=== PATIENT | male | born 1960 | race Caucasian/White ===

== ENCOUNTER 2024-10-13 16:18 | Outpatient (AMB) | payer BC, SELFPAY ==
--- NOTE | 2024-10-13 16:19 | A.OFFVIS_ITS ---
Intake Visit Reasons: New Patient/Prostate Lesion Intake Note: Akbar presents today via video call for a new patient visit. HPI Comments Details: Akbar is a pleasant male. He is a patient of Dr. Maldonado. He is seen for the following urologic conditions. - elevated PSA Telemedicine Evaluation 15 min Consultation [employer] Danny Video Ongoing variability with PSA. PSA 08/18 8.0, 10/16 10.1 Currently completing 2 week course of ciprofloxacin Discussed recent MRI results. Correlation between PI-RADS 4 lesions on MRI and biopsy result proximally 85%. Discussed MRI can not tell you grade of disease and most frequently this would be low-grade disease. Variable MRI may reflect underlying neoplastic process. However recent 2 point variation is more suggestive of prostatitis. Would recommend MRI ultrasound fusion biopsy. Recent prostate MRI Prostate volume 50 cc 2 PI-RADS 4 lesions. Left base lateral. 10 mm. Abutment of capsule. Posterior right base. 10 mm. Bladder findings with diffuse wall thickening and trabeculation consequence of chronic outlet obstruction. Secondary issue of concern is diffuse bladder wall thickening with trabeculation. Recommend initiation finasteride to help manage outlet obstruct ion and address PSA whilst mitigating potential prostate cancer risk. Review of Systems Const All systems reviewed & are unremarkable except as noted in HPI and below Reports no additional complaints Resp Reports no additional complaints GI Reports no additional complaints Reports as per HPI Musc Reports no additional complaints Physical Exam Telemedicine evaluation Appropriate responses Regular breathing rate and rhythm HEENT Head: Yes normal to inspection Ears: hearing grossly normal bilaterally Eyes General: appearance normal, both eyes and all related structures Neck Neck: Yes normal visual inspection Chest Chest palpation & inspection: normal inspection of the chest Resp Effort & Inspection: normal respiratory effort and able to speak in complete sentences Telehealth Telehealth Telehealth Platform: [employer] Location of provider rendering services: practice address Location of patient: address on file Patient Identification confirmed using: Name, : Yes Telehealth method: video Patient verbally consented to treatment: Yes Patient verbally consented to billing insurance company: Yes Patient informed of any privacy concerns related to visit: Yes Minutes spent on Phone/Video with Pt.: 25 Assessment & Plan Assessment & Plan (1) Bladder outlet obstruction: Code(s): N32.0 - Bladder-neck obstruction Category: Medical (2) Elevated PSA: Code(s): R97.20 - Elevated prostate specific antigen [PSA] Category: Medical Plan Risks and benefits regarding trans rectal ultrasound with prostate biopsy were discussed. Options of continued surveillance, no treatment and biopsy were offered. The risks include but are not limited to, urinary tract infection, sepsis, difficulty urinating, bleeding into the rectum or bladder that requires intervention and transfusion,and failure to diagnose prostate cancer. The patient understands the options and the risks involved. They wish to proceed. Printed information was provided to ensure he remains off anticoagulation for the appropriate length of time. He may require cardiology or PCP clearance. An antibiotic will be administered prior to, and following the procedure - MRI ultrasound fusion prostate biopsy under sedation Medications: New finasteride 5 mg PO DAILY 90 tabs 1RF 90 days N13.8 - Other obstructive and reflux uropathy, N40.1 - Benign prostatic hyperplasia with lower urinary tract symptoms, R33.9 - Retention of urine, unspecified Patient Instructions: This note is constructed using voice recognition software. While every effort has been made to ensure accuracy desktop support consultant errors may have been included. Imaging studies, laboratory and physical exam results were discussed and reviewed in detail. No major barriers to patient understanding were identified. An opportunity to ask questions regarding the treatment plan was provided. All questions were answered. The patient expressed understanding and agreement with the above treatment plan. The patient is aware they should contact our office by phone for worsening of their current condition or the appearance of new urologic symptoms. Compliance is encouraged with any medications and followup testing that is ordered. It is a privilege to participate in the urologic care of your patient. If you have any questions or concerns regarding treatment for the above conditions, or other urologic issues, please do not hesitate to contact me. The office telephone contact is [phone]. Sincerely, Dr Aurelio Friend MD, [facility] - Urology Compassionate Specialist Care for the Genitourinary System Coding Level of Care Code Tele New Pt Level 4 (22994) Diagnoses Bladder outlet obstruction N32.0 Elevated PSA R97.20
--- OUTSIDE RECORDS SUMMARY | 2024-10-13 18:46 | XMS_ITS | Encounter Summary ---
Author Organization [facility] Address [address] [place] [address] Care Team Providers Care Insurance Account Representative Name Role Phone Marco Antonio Maldonado MD Primary Care Provider Encounter Details Date Type Department Care Team (Late st Contact Info) Description 02/16/2022 Orders Only [facility] XRay [address] [place] [address] Andrew Jonas MD [address] [place] [address] Social History Tobacco Use Types Packs/Day Years Used Date Smoking Tobacco: Every Day Cigarettes Cigars Smokeless Tobacco: Never Comments:: Alcohol Use Standard Drinks/Week Comments Yes 0 (1 standard drink = 0.6 oz pur e alcohol) very rare Sex and Gender Information Value Date Recorded Sex Assigned at Male 09/04/2021 9:34 AM EDT Legal Sex Male 3:41 AM EDT Gender Identity Male 09/04/2021 9:34 AM EDT Sexual Orientation Straight 09/04/2021 9: 34 AM EDT documented as of this encounter Plan of Treatment Upcoming Encounters Date Type Department Care Team (Late st Contact Info) Description 11/27/2024 10:00 AM EDT Office Visit [facility] [address] [place] [phone] Sport Intern: Anju Lopes, Aracely Eduardo NP [address] [place] [phone] documented as of this encounter Visit Diagnoses Not on filedocumented in this encounter Care Teams Insurance Account Representative Relationship Specialty Start Date End Date Marco Antonio Maldonado MD [address] [place] [phone] PCP - General Internal Medicine 08/21/21 documented as of this encounter
--- OUTSIDE RECORDS SUMMARY | 2024-10-13 18:46 | XMS_ITS | Encounter Summary ---
Author Organization [facility] Address [address] [place] [address] Care Team Providers Care Type Bar And Segment Assembler Name Role Phone Marco Antonio Maldonado MD Primary Care Provider [phone] Encounter Details Date Type Department Care Team (Late st Contact Info) Description 02/15/2022 Orders Only [facility] Draw Site [address] [place] [phone] Marco Antonio Maldonado MD [address] [place] [address] [phone] Umbilical hernia with obstruction but no gangrene (Primary Dx) Social History Tobacco Use Types Packs/Day Years [...] Description 11/27/2024 10:00 AM EDT Office Visit [facility] Clinic [address] [place] [address] Stevedoring Supervisor: Anju Aracely Don, TESSIE [address] [place] [address] documented as of this encounter Results * Due to [place] state law, this organization might not be sharing negative HIV tests. * Urinalysis With Microscopic (No Culture) (02/16/2022 9:29 AM EDT) Color, Urine Light Yellow Colorless, Light Yellow, Yellow, Dark Yellow 02/16/2022 10:11 AM EDT [facility] Clarity, Urine Clear Clear 02/16/2022 10:11 AM EDT [facility] Specific [place], Urine 1.009 1.005 - 1.030 02/16/2022 10:11 AM EDT [facility] pH, Urine 6.0 4.6 - 8.0 02/16/2022 10:11 AM EDT [email or web address] Protein, Urine Negative Negative 02/16/2022 10:11 AM EDT [facility] Glucose, Urine Negative Negative 02/16/2022 10:11 AM EDT [facility] Ketones, Urine Negative Negative 02/16/2022 10:11 AM EDT [facility] Bilirubin, Urine Negative Negative 02/16/2022 10:11 AM EDT [facility] Blood, Urine Negative Negative 02/16/2022 10:11 AM EDT [facility] Nitrite, Urine Negative Negative 02/16/2022 10:11 AM EDT [email or web address] Urobilinogen, Urine Normal Normal 02/16/2022 10:11 AM EDT [facility] Leukocyte Esterase, Urine Negative Negative 02/16/2022 10:11 AM EDT [email or web address] WBC, Urine 2 0 - 2 /HPF 02/16/2022 10:11 AM EDT [facility] RBC, Urine 0 0 - 2 /HPF 02/16/2022 10:11 AM EDT [facility] Hyaline Casts, Urine 0 0 - 2 /LPF 02/16/2022 10:11 AM EDT [facility] Bacteria, Urine None Seen None /HPF /HPF 02/16/2022 10:11 AM EDT [facility] Urine Voided urine specimen / Unknown Non-Blood Collection / Unknown 02/16/2022 9:29 AM EDT 02/16/2022 9:45 AM EDT us Marco Antonio Maldonado MD LAB URINE ORDERABLES Final [facility] [address] [place] [address], * (ABNORMAL) Basic Metabolic Panel (02/16/2022 9:22 AM EDT) NA 141 135 - 145 mmol/L 02/16/2022 10:14 AM EDT [facility] K 4.5 3.5 - 5.3 mmol/L 02/16/2022 10:14 AM EDT [facility] Cl 105 97 - 110 mmol/L 02/16/2022 10:14 AM EDT [facility] CO2 27 24 - 32 mmol/L 02/16/2022 10:14 AM EDT [facility] BUN 14 7 - 23 mg/dL 02/16/2022 10:14 AM EDT [facility] Creatinine 0.80 0.60 - 1.30 mg/dL 02/16/2022 10:14 AM EDT [facility] Glucose 108(H) 70 - 99 mg/dL 02/16/2022 10:14 AM EDT [facility] Calcium 9.9 8.7 - 10.7 mg/dL 02/16/2022 10:14 AM EDT [facility] Anion Gap 9 5 - 15 02/16/2022 10:14 AM EDT [facility] eGFR >90 >=90 mL/min/1. 73m2 02/16/2022 10:14 AM EDT [facility] Comment: Estimated Glomerular Filtration Rate (GFR) calculated using the CKD-EPI refit equation. The different stages of CKD form a continuum. The stages of CKD are classified as follows : Stage 1: Kidney damage with normal or increased GFR (>90 mL/min/1.73 m2) Stage 2: Mild reduction in GFR (60-89 mL/min/1.73 m2) Stage 3a: Moderate reduction in GFR (45-59 mL/min/1.73 m2) Stage 3b: Moderate reduction in GFR (30-44 mL/min/1.73 m2) Stage 4: Severe reduction in GFR (15-29 mL/min/1.73 m2) Stage 5: Kidney failure (GFR < 15 mL/min/1.73 m2 or dialysis) Blood Structure of peripheral vein / Unknown Venipuncture / Unknown 02/16/2022 9:22 AM EDT 02/16/2022 9:47 AM EDT us Marco Antonio Maldonado MD LAB BLOOD ORDERABLES Final Resu lt [facility] [address] [place] [address], * CBC Auto Differential (02/16/2022 9:22 AM EDT) WBC 7.9 4.3 - 10.8 10*3/uL 02/16/2022 9:54 AM EDT [facility] RBC 4.92 4.20 - 5.80 10*6/uL 02/16/2022 9:54 AM EDT [facility] Hemoglobin 14.9 13.2 - 17.1 g/dL 02/16/2022 9:54 AM EDT [facility] Hematocrit 43.0 39.0 - 52.0 % 02/16/2022 9:54 AM EDT [facility] MCV 87.4 80.0 - 100.0 fL 02/16/2022 9:54 AM EDT [facility] MCH 30.2 27.0 - 34.0 pg 02/16/2022 9:54 AM EDT [facility] MCHC 34.6 29.0 - 36.0 g/dL 02/16/2022 9:54 AM EDT [facility] RDW 13.1 11.0 - 15.0 % 02/16/2022 9:54 AM EDT [facility] Platelets 230 140 - 440 10*3/uL 02/16/2022 9:54 AM EDT [facility] MPV 7.6 7.6 - 11.6 fL 02/16/2022 9:54 AM EDT [facility] Neutrophil % 62.7 % 02/16/2022 9:54 AM EDT [facility] Lymphocyte % 27.5 % 02/16/2022 9:54 AM EDT [facility] Monocyte % 6.1 % 02/16/2022 9:54 AM EDT [facility] Eosinophil % 2.2 % 02/16/2022 9:54 AM EDT [facility] Basophil % 1.4 % 02/16/2022 9:54 AM EDT [facility] Neutrophil # 4.94 1.60 - 7.50 10*3/uL 02/16/2022 9:54 AM EDT [facility] Lymphocyte # 2.2 0.9 - 3.4 10*3/uL 02/16/2022 9:54 AM EDT [facility] Monocyte # 0.5 0.0 - 1.2 10*3/uL 02/16/2022 9:54 AM EDT [facility] Eosinophil # 0.2 0.0 - 0.6 10*3/uL 02/16/2022 9:54 AM EDT [facility] Basophil # 0.1 0.0 - 0.3 10*3/uL 02/16/2022 9:54 AM EDT [facility] Smear Review? No [place] [facility] 02/16/2022 9:54 AM EDT [facility] Blood Structure of peripheral vein / Unknown Venipuncture / Unknown 02/16/2022 9:22 AM EDT 02/16/2022 9:47 AM EDT us Marco Antonio Maldonado MD LAB BLOOD ORDERABLES Final Resu lt [facility] [address] documented in this encounter Visit Diagnoses Diagnosis Umbilical hernia with obstruction but no gangrene- Primary Umbilical hernia with obstruction documented in this encounter Care Teams Type Bar And Segment Assembler Relationship Specialty Start Date End Date Marco Antonio Maldonado MD [address] [place] [phone] PCP - General Internal Medicine 08/21/21 documented as of this encounter
--- OUTSIDE RECORDS SUMMARY | 2024-10-13 18:46 | XMS_ITS | Encounter Summary ---
Author Organization [facility] Address [address] [place] [address] Care Team Providers Care Corn Breeder Name Role Phone Marco Antonio Maldonado MD Primary Care Provider [phone] Encounter Details Date Type Department Care Team (Late st Contact Info) Description 10/01/2024 Community Orders [facility] Link [address] [place] [address] Marco Antonio Maldonado MD [address] [place] [address] [phone] Social History Tobacco Use Types Packs/Day Years Used Date Smoking Tobacco: Every Day Cigarettes 0.5 20 Cigars Smokeless Tobacco: Never Comments:: Alcohol Use [...] Description 11/27/2024 10:00 AM EDT Office Visit [facility] Clinic [address] [place] [phone] Registration Clerk: Anju Lopes, Aracely Eduardo NP [address] [place] [phone] documented as of this encounter Visit Diagnoses Not on filedocumented in this encounter Care Teams Corn Breeder Relationship Specialty Start Date End Date Marco Antonio Maldonado MD [address] [place] [phone] PCP - General Internal Medicine 08/21/21 documented as of this encounter
--- OUTSIDE RECORDS SUMMARY | 2024-10-13 18:46 | XMS_ITS | Encounter Summary ---
Author Organization [facility] Address [address] [place] [address] Care Team Providers Care Curriculum Assistant Principal Name Role Phone Marco Antonio Maldonado MD Primary Care Provider [phone] Encounter Details Date Type Department Care Team (Late st Contact Info) Description 02/16/2022 Orders Only [facility] XRay [address] [place] [address] Mikhail Dorantes MD [address] [place] [address] Social History Tobacco Use Types Packs/Day Years [...] Description 11/27/2024 10:00 AM EDT Office Visit [facility] [address] [place] [phone] Manufacturing Electrician: Anju Lopes, Aracely Eduardo NP [address] [place] [address] documented as of this encounter Visit Diagnoses Not on filedocumented in this encounter Care Teams Curriculum Assistant Principal Relationship Specialty Start Date End Date Marco Antonio Maldonado MD [address] [place] [phone] PCP - General Internal Medicine 08/21/21 documented as of this encounter
--- OUTSIDE RECORDS SUMMARY | 2024-10-13 18:46 | XMS_ITS | Encounter Summary ---
Author Organization [facility] Address [address] [place] [address] Care Team Providers Care Corporate Learning Consultant Name Role Phone Marco Antonio Maldonado MD Primary Care Provider [phone] Encounter Details Date Type Department Care Team (Late st Contact Info) Description 08/28/2023 Orders Only [facility] [address] [place] [phone] Taran Andino MD [address] [place] [address] [phone] Social History Tobacco Use Types Packs/Day Years [...] Description 11/27/2024 10:00 AM EDT Office Visit [facility] Clinic [address] [place] [phone] Implement Mechanic: Anju Lopes, Aracely Eduardo NP [address] [place] [phone] documented as of this encounter Visit Diagnoses Not on filedocumented in this encounter Care Teams Corporate Learning Consultant Relationship Specialty Start Date End Date Marco Antonio Maldonado MD [address] [place] [phone] PCP - General Internal Medicine 08/21/21 documented as of this encounter
--- OUTSIDE RECORDS SUMMARY | 2024-10-13 18:46 | XMS_ITS | Encounter Summary ---
Author Organization [facility] Address [address] [place] [address] Care Team Providers Care Roll Repairer Name Role Phone Marco Antonio Maldonado MD Primary Care Provider [phone] Encounter Details Date Type Department Care Team (Late st Contact Info) Description 10/09/2024 Community Orders [facility] Link [address] [place] [address] Marco Antonio Maldonado MD [address] [place] [address] [phone] Social History Tobacco Use Types Packs/Day Years [...] Description 11/27/2024 10:00 AM EDT Office Visit [facility] Clinic [address] [place] [phone] Computer Numerical Control Programmer: Anju Lopes, Aracely Eduardo NP [address] [place] [address] documented as of this encounter Visit Diagnoses Not on filedocumented in this encounter Care Teams Roll Repairer Relationship Specialty Start Date End Date Marco Antonio Maldonado MD [address] [place] [phone] PCP - General Internal Medicine 08/21/21 documented as of this encounter
--- OUTSIDE RECORDS SUMMARY | 2024-10-13 18:46 | XMS_ITS | Encounter Summary ---
Author Organization [facility] Address [address] [place] [address] Care Team Providers Care Hide Handler Name Role Phone Marco Antonio Maldonado MD Primary Care Provider [phone] Encounter Details Date Type Department Care Team (Late st Contact Info) Description 10/12/2024 Community Orders [facility] Link [address] [place] [address] Marco Antonio Maldonado MD [address] [place] [address] [phone] Social History Tobacco Use Types Packs/Day Years [...] Description 11/27/2024 10:00 AM EDT Office Visit [facility] Clinic [address] [place] [phone] Registration Manager: Anju Lopes, Aracely Eduardo NP [address] [place] [address] documented as of this encounter Visit Diagnoses Not on filedocumented in this encounter Care Teams Hide Handler Relationship Specialty Start Date End Date Marco Antonio Maldonado MD [address] [place] [phone] PCP - General Internal Medicine 08/21/21 documented as of this encounter
--- OUTSIDE RECORDS SUMMARY | 2024-10-13 18:46 | XMS_ITS | Referral Summary ---
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 Role Phone Marco Antonio Maldonado MD Primary Care Provider Encounters Date Type Department Care Team Description 10/12/2024 Community Orders [facility] [employer] [facility] [address] [place] [phone] Marco Antonio Maldonado MD 10/09/2024 Community Orders [facility] [employer] [facility] [address] [place] [address] Marco Antonio Maldonado MD 10/06/2024 1:10 PM EDT - 10/06/2024 11:59 PM EDT Hospital Encounter [facility] [address] [place] [address] Left testicular pain Discharge Disposition: Home or Self Care (01) 10/05/2024 Orders Only [facility] [address] [address] Marco Antonio Maldonado MD Elevated prostate specific antigen (PSA) 10/01/2024 Community Orders [facility] [facility] [address] [place] [address] Marco Antonio Maldonado MD 09/30/2024 Orders Only [facility] [address] [place] [phone] Local City Driver: Aracely Gonzalez NP 09/28/2024 Telephone [facility] [address] [address] Local City Driver: Aracely Gonzalez NP 09/28/2024 8:00 AM EDT Office Visit [facility] [address] [place] [phone] Local City Driver: Aracely Gonzalez NP Abnormal prostate specific antigen (PSA) (Primary Dx); Left testicular pain 09/15/2024 Orders Only [facility] Draw Site [address] [place] [address] Marco Antonio Maldonado MD Elevated prostate specific antigen (PSA) (Primary Dx) 09/15/2024 Orders Only [facility] [address] [address] Local City Driver: Rohit Sinclair MD 09/11/2024 Telephone [facility] [address] [address] Local City Driver: Murtaza López LPN 09/01/2024 Transcribe Orders [facility] [address] [place] [address] Marco Antonio Maldonado MD Elevated prostate specific antigen (PSA) (Primary Dx) 07/23/2024 3:27 PM EST - 07/23/2024 11:59 PM EST Hospital Encounter [facility] CT Scan [address] [place] [address] Marco Antonio Maldonado MD Acute maxillary sinusitis, recurrence not specified Discharge Disposition: Home or Self Care () from Last 3 Months Allergies Active Allergy Reactions Criticality Noted Date Comments Meperidine Paresthesia Medium 10/14/2020 Iodine Rash,Unknown,Edema High 01/14/2019 topical Shellfish Derived Lethargy Low 10/14/2020 Sulfa (Sulfonamide Antibiotics) Unknown,Dizziness Medium 06/02/2019 Blood pressure drop and will become faint and dizzy Medications eszopiclone (LUNESTA) 3 mg tablet Take 1 tablet (3 mg total) by mouth nightly. Take immediately before bedtime 30 tablet 3 9 Active cyanocobalamin, vitamin B-12, 1,000 mcg tablet extended release 1 tablet daily Activ e Lactobac no.41/Bifidobac t no.7 (PROBIOTIC-10 ORAL) Take by mouth. Activ e albuterol (PROAIR HFA,VENTOLIN HFA) 90 mcg inhaler SMARTSI Puff(s) Via Inhaler Every 4 Hours PRN Active ZINC ACETATE ORAL Take by mouth once a day. Active LYCOPENE ORAL Take by mouth once a day. Active vitamin B complex capsule Take 1 capsule by mouth once a day. Active psyllium seed, with sugar, (METAMUCIL, SUGAR, ORAL) Take by mouth. Ac tive rosuvastatin (CRESTOR) 20 mg tablet Take 1 tablet every day by oral route for 90 days, for hyperlipidemia. 5 Active cefpodoxime (VANTIN) 200 mg tablet Take 1 tablet by mouth 2 times daily, day before biopsy, day of biopsy, day after biopsy 6 tablet 5 Active cefpodoxime (VANTIN) 200 mg tablet Take 1 tablet (200 mg total) by mouth 2 times a day. 14 tablet 5 Active Active Problems Problem Noted Date Diagnosed Date Cardiovascular symptoms 03/15/2022 Chronic obstructive pulmonary disease 03/15/2022 Obstructive sleep apnea 03/15/2022 Pulmonary infiltrate 03/15/2022 Pulmonary nodule 03/15/2022 Hemorrhoids 11/13/2018 Assessment & Plan (11/13/2018 4:22 PM EDT): Doing well with Anusol cream Pneumonia due to infectious organism 09/05/2018 Assessment & Plan (11/13/2018 4:21 PM EDT): Clinically patient has improved however the last chest x-ray showed some continuation of the interstitial infiltrate and some COPD. He was advised to quit smoking and will be referred to pulmonology specialist for COPD and persistence of pneumonic infiltrate Assessment & Plan (09/05/2018 12:18 PM EDT): Clinically seems to have resolved. Patient will go and have a repeat chest x- ray. Shortness of breath 07/31/2018 Assessment & Plan (07/31/2018 11:33 AM EST): Most likely due to acute bronchitis. Patient was prescribed doxycycline 100 mg twice a day prednisone 50 mg/day for 7 days and also will go for a chest x-ray. EKG normal. Also patient was given samples of Symbicort 80 1 puff twice a day Annual physical exam 05/08/2018 Assessment & Plan (05/08/2018 2:49 PM EST): Current exam performed. Patient will use Anusol suppositories for rectal bleeding and will go and have Acute pain of left shoulder 03/20/2018 Assessment & Plan (03/20/2018 4:06 PM EDT): Probably tendinitis or rotator cuff injury. His bicipital groove was injected with a mixture of lidocaine and Medrol and in view of his previous history of rotator cuff surgery he will have an MRI. SOB (shortness of breath) 12/20/2017 Assessment & Plan (12/20/2017 11:06 AM EDT): Probably multifactorial. Patient will be referred for PFT and a chest x-ray. Subcutaneous cyst 12/20/2017 Assessment & Plan (12/20/2017 11:07 AM EDT): Consistent with a benign cyst. Patient will be referred to surgery for removal. Infected pilonidal cyst 03/14/2017 Inflamed seborrheic keratosis 07/12/2016 Skin mass 06/26/2016 Acute sinusitis 03/26/2016 Upper airway cough syndrome 03/26/2016 Cervicalgia 08/04/2014 Insomnia 08/04/2014 Assessment & Plan (11/13/2018 4:21 PM EDT): Seems to be doing well with Lunesta Bursitis of shoulder 01/19/2014 Hyperlipidemia 01/19/2014 Assessment & Plan (11/13/2018 4:21 PM EDT): Doing well with simvastatin 20 mg Assessment & Plan (12/20/2017 11:08 AM EDT): Doing well with simvastatin 20 mg. Immunizations Immunization Administration Dates Next Due Influenza, Trivalent, MDV, Injectable 03/14/2017 ,05/09/2015,08/04/2014 Tetanus Toxoid, Reduced Diph theria Toxoid, and Acellular Pertussis Vaccine, Adsorbed 03/14/2017 Social History Tobacco Use Types Packs/Day Years Used Date Smoking Tobacco: Every Day Cigarettes 0.5 20 Cigars Smokeless Tobacco: Never Tobacco Cessation:Ready to Q uit: Not Asked; Counseling Given: Not Answered Comments:: Alcohol Use Standard Drinks/Week Comments Yes 0 (1 standard drink = 0.6 oz pur e alcohol) very rare Sex and Gender Information Value Date Recorded Sex Assigned at Male 09/04/2021 9:34 AM EDT Legal Sex Male 3:41 AM EDT Gender Identity Male 09/04/2021 9:34 AM EDT Sexual Orientation Straight 09/04/2021 9: 34 AM EDT Last Filed Vital Signs Vital Sign Reading Time Taken Comments Blood Pressure 124/72 09/28/2024 7:53 AM EDT Pulse 91 09/28/2024 7:53 AM EDT Temperature 36.3 ??C (97.3 ??F) 11/21/2023 8:31 AM ED T Respiratory Rate 16 10/21/2023 7:50 AM EDT Oxygen Saturation 95% 10/21/2023 7:50 AM EDT Inhaled Oxygen Concentration - - Weight 89.8 kg (198 lb) 11/21/2023 8:31 AM EDT Height 167.6 cm (5' 6 ) 11/21/2023 8:31 AM EDT Body Mass Index 31.96 11/21/2023 8:31 AM EDT Plan of Treatment Upcoming Encounters Date Type Department Care Team (Late st Contact Info) Description 11/27/2024 10:00 AM EDT Office Visit [facility] [address] [place] [address] Local City Driver: Anju Lopes, Aracely Eduardo NP [address] [place] [phone] Procedures * Due to [place] state law, this organization might not be sharing negative HIV tests. Procedure Name Priority Date/Time Associated Diagnosis Comments US SCROTUM AND DOPPLER COMPLETE Routine 10/06/2024 1:46 PM EDT Left testicular pain MRI PROSTATE W WO CONTRAST W 3D REFORMAT Routine 10/05/2024 7:50 PM EDT Elevated prostate specific antigen (PSA) GUZMAN TOP, URN Routine 09/28/2024 4:55 PM EDT Abnormal prostate specific antigen (PSA) UA/CULTURE REFLEX Routine 09/28/2024 4:5 5 PM EDT Abnormal prostate specific antigen (PSA) URINALYSIS W/REFLEX TO MICROSCOPIC & CULTURE Routine 09/28/2024 4:55 PM EDT Abnormal prostate specific antigen (PSA) URINE CULTURE, ROUTINE Routine 09/28/2024 4:55 PM EDT Abnormal prostate specific antigen (PSA) PSA, TOTAL AND FREE Routine 09/23/2024 7 :39 AM EDT Elevated prostate specific antigen (PSA) LAB - SCANNED Routine 09/15/2024 8:[address] SINUS WO CONTRAST Routine 07/23/2024 4:31 PM EST Acute maxillary sinusitis, recurrence not specified COLONOSCOPY 10/18/2020 from Last 3 Months or Most Recently Relevant to Health Maintenance Results * Due to [place] [employer] law, this organization might not be sharing negative HIV tests. * US Scrotum and Doppler Complete (10/06/2024 1:46 PM EDT) Anatomical Region Laterality Modality Pelvis N/A Ultrasound 10/06/2024 2:05 PM EDT Impressions 10/06/2024 2:08 PM EDT No testicular mass or signs of a testicular or epididymal inflammatory process. ? Normal testicular vascularity on both sides, with arterial and venous waveforms on spectral Doppler imaging. Small right hydrocele, possibly septated. If this radiology report contains a blank impression section, it is an incomplete radiology report. ??Please contact the interpreting radiologist or applicable radiology division as soon as possible to obtain the completed interpretation. ? Workstation ID: [id number] Narrative 10/06/2024 2:08 PM EDT EXAMINATION: Scrotal ultrasound with Doppler INDICATION: Left testicular pain TECHNIQUE: Sonographic evaluation of the scrotum. Grayscale, color Doppler, and spectral Doppler images were obtained. COMPARISON: No previous scrotal imaging studies FINDINGS: RIGHT TESTIS: The right testis measures 5.0 x 2.7 x 4.0 cm (volume 28.2 mL). The testicle is normal in texture, with no mass lesion. LEFT TESTIS: ??The left testis measures 4.5 x 2.5 x 3.5 cm (volume 21 mL). The testicle is normal in texture, with no mass lesion. VASCULAR: There is symmetric testicular vascularity on color and spectral Doppler, with appropriate arterial inflow and venous outflow bilaterally. No varicocele identified in either side. EPIDIDYMIDES: No inflammatory enlargement epididymis on either side. Normal variant 5 mm left epididymal head cyst. SCROTUM: Small right hydrocele, with a septation noted Resulting Agency Comment [id number] Procedure Note Brian West MD - 10/06/2024 EXAMINATION: Scrotal ultrasound with Doppler INDICATION: Left testicular pain TECHNIQUE: Sonographic evaluation of the scrotum. Grayscale, colorDoppler, and spectral Doppler images were obtained. COMPARISON: No previous scrotal imaging studies FINDINGS: RIGHT TESTIS: The right testis measures 5.0 x 2.7 x 4.0 cm (volume 28.2mL). The testicle is normal in texture, with no mass lesion. LEFT TESTIS: The left testis measures 4.5 x 2.5 x 3.5 cm (volume 21 mL).The testicle is normal in texture, with no mass lesion. VASCULAR: There is symmetric testicular vascularity on color and spectralDoppler, with appropriate arterial inflow and venous outflow bilaterally. No varicocele identified in either side. EPIDIDYMIDES: No inflammatory enlargement epididymis on either side.Normal variant 5 mm left epididymal head cyst. SCROTUM: Small right hydrocele, with a septation noted IMPRESSION: No testicular mass or signs of a testicular or epididymal inflammatoryprocess. Normal testicular vascularity on both sides, with arterial and venouswaveforms on spectral Doppler imaging. Small right hydrocele, possibly septated. If this radiology report contains a blank impression section, it is anincomplete radiology report. Please contact the interpreting radiologistor applicable radiology division as soon as possible to obtain thecompleted interpretation. Workstation ID: [id number] us Aracely Lopes NP IMG US PROCEDURES [facility] l Result * MRI Prostate W WO Contrast W 3D Reformat (10/05/2024 7:50 PM EDT) Anatomical Region Laterality Modality Magnetic Resonan ce 10/08/2024 1:37 PM EDT Impressions 10/08/2024 1:52 PM EDT 1. A 10 mm PI-RADS 4 nodule at the left lateral peripheral zone at the base. 2. A 10 mm PI-RADS 4 nodule at the posterior right transitional zone at the base. PI-RADS v2.1 Assessment Categories: PI-RADS 1: Very low (clinically significant cancer is highly unlikely to be present) PI-RADS 2: Low (clinically significant cancer is unlikely to be present) PI-RADS 3: Intermediate (the presence of clinically significant cancer is equivocal) PI-RADS 4: High (clinically significant cancer is likely to be present) PI-RADS 5: Very high (clinically significant cancer is highly likely to be present) If this radiology report contains a blank impression section, it is an incomplete radiology report. ??Please contact the interpreting radiologist or applicable radiology division as soon as possible to obtain the completed interpretation. ? Workstation ID: [id number] Narrative 10/08/2024 1:52 PM EDT STUDY: MRI of the pelvis (prostate) without and with intravenous contrast. INDICATION: Elevated PSA. ??R97.20 - I10 - Elevated prostate specific antigen (PSA). COMPARISON: Prior abdominal MRI 04/08/2022, prostate MRI 09/26/2021 TECHNIQUE: Multiparameteric (T2WI, DWI, DCE) contrast-enhanced MRI of prostate was performed. Standard dose weight-based IV Gadolinium-based contrast was administered with flush of 20cc saline at 3cc/sec. CLINICAL INFORMATION: PSA (trend if available): 10.1 in September 2024, 8.0 in July 2024, 5.7 and April 2023, 4.5 in February 2022 Previous Biopsies: None available. FINDINGS: PROSTATE: The prostate measures 4.2 x 4.0 x 5.4 cm for a volume of 48 ml. Changes of BPH are present throughout the transition zone. Peripheral Zone: There are scattered foci of linear and wedge-shaped T2 signal hypointensity throughout the peripheral zone without mass effect or restricted diffusion, in keeping with postinflammatory changes (PI-RADS 2). Lesion #: 1 Location: Left lateral, base (series 650, image 16). Size (measured on ADC): 10 mm DWI PI-RADS: 4 T2 PI-RADS: 4 DCE: Positive Extraprostatic extension: Abuts the capsule, without extracapsular extension identified Overall PI-RADS: 4 Transition Zone: Lesion #: 1 Location: Posterior right, base (series 3, image 24). Size (measured on T2): 10 mm DWI PI-RADS: 3 T2 PI-RADS: 4 DCE: Positive Fibromuscular stroma invasion: Absent Overall PI-RADS: 4 SEMINAL VESICLES: No tumor invasion. No hemorrhage. LYMPH NODES: No lymphadenopathy. BLADDER: The bladder demonstrates diffuse wall thickening and trabeculation, compatible with sequela of chronic outlet obstruction. Small diverticula formation noted. No bladder callus or mass. The distal ureters and ureterovesical junctions are unremarkable. OTHER: Partially visualized innumerable hepatic cysts, as seen on prior MRI 04/08/2022. Partially visualized tiny renal focus, potentially cystic, small renal foci also seen on prior MRI. Sigmoid colon diverticular disease and wall thickening. BONES AND SOFT TISSUES: No suspicious lesions. Small fat-containing left inguinal hernia. Resulting Agency Comment [id number] Procedure Note Donaldo Bliss MD - 10/08/2024 STUDY: MRI of the pelvis (prostate) without and with intravenouscontrast. INDICATION: Elevated PSA. R97.20 - I10 - Elevated prostate specificantigen (PSA). COMPARISON: Prior abdominal MRI 04/08/2022, prostate MRI 09/26/2021 TECHNIQUE: Multiparameteric (T2WI, DWI, DCE) contrast-enhanced MRI ofprostate was performed. Standard dose weight-based IV Gadolinium-basedcontrast was administered with flush of 20cc saline at 3cc/sec. CLINICAL INFORMATION: PSA (trend if available): 10.1 in September 2024, 8.0 in July 2024, 5.7and April 2023, 4.5 in February 2022 Previous Biopsies: None available. FINDINGS: PROSTATE: The prostate measures 4.2 x 4.0 x 5.4 cm for a volume of 48 ml.Changes of BPH are present throughout the transition zone. Peripheral Zone: There are scattered foci of linear and wedge-shaped T2 signalhypointensity throughout the peripheral zone without mass effect orrestricted diffusion, in keeping with postinflammatory changes (PI-RADS2). Lesion #: 1 Location: Left lateral, base (series 650, image 16). Size (measured on ADC): 10 mm DWI PI-RADS: 4 T2 PI-RADS: 4 DCE: Positive Extraprostatic extension: Abuts the capsule, without extracapsularextension identified Overall PI-RADS: 4 Transition Zone: Lesion #: 1 Location: Posterior right, base (series 3, image 24). Size (measured on T2): 10 mm DWI PI-RADS: 3 T2 PI-RADS: 4 DCE: Positive Fibromuscular stroma invasion: Absent Overall PI-RADS: 4 SEMINAL VESICLES: No tumor invasion. No hemorrhage. LYMPH NODES: No lymphadenopathy. BLADDER: The bladder demonstrates diffuse wall thickening andtrabeculation, compatible with sequela of chronic outlet obstruction.Small diverticula formation noted. No bladder callus or mass. The distalureters and ureterovesical junctions are unremarkable. OTHER: Partially visualized innumerable hepatic cysts, as seen on priorMRI 04/08/2022. Partially visualized tiny renal focus, potentially cystic,small renal foci also seen on prior MRI. Sigmoid colon diverticulardisease and wall thickening. BONES AND SOFT TISSUES: No suspicious lesions. Small fat-containing leftinguinal hernia. IMPRESSION: 1. A 10 mm PI-RADS 4 nodule at the left lateral peripheral zone at thebase. 2. A 10 mm PI-RADS 4 nodule at the posterior right transitional zone atthe base. PI-RADS v2.1 Assessment Categories: PI-RADS 1: Very low (clinically significant cancer is highly unlikely nallely present) PI-RADS 2: Low (clinically significant cancer is unlikely to be present) PI-RADS 3: Intermediate (the presence of clinically significant cancer isequivocal) PI-RADS 4: High (clinically significant cancer is likely to be present) PI-RADS 5: Very high (clinically significant cancer is highly likely to bepresent) If this radiology report contains a blank impression section, it is anincomplete radiology report. Please contact the interpreting radiologistor applicable radiology division as soon as possible to obtain thecompleted interpretation. Workstation ID: [id number] us Marco Antonio Maldonado MD IMG MRI PROCEDURES Final Result * Guzman Top, Urine (09/28/2024 4:55 PM EDT) Pathologist [facility] Extra Tube Hold for add-ons. 09/28/2024 9:05 PM EDT [facility] Comment:Auto resulted. Urine Urine specimen collection, clean catch / Unknown Non-Blood Collection / Unknown 09/28/2024 4:55 PM EDT 09/28/2024 5:54 PM EDT us Aracely Lopes NP LAB URINE ORDERABLES F inal Result [facility] [address] [place] [address], [place] * (ABNORMAL) Urinalysis W/Reflex to Microscopic & Culture (09/28/2024 4:55 PM EDT) Color, Urine Light Yellow Colorless, Light Yellow, Yellow, Dark Yellow 09/28/2024 6:29 PM EDT [facility] Clarity, Urine Clear Clear 09/28/2024 6:29 PM T [facility] Specific Laura, Urine 1.005 1.005 - 1.030 09/28/2024 6:29 PM EDT [facility] pH, Urine 6.0 4.6 - 8.0 09/28/2024 6:29 PM EDT [facility] Protein, Urine Negative Negative 09/28/2024 6:29 PM EDT [facility] Glucose, Urine Negative Negative 09/28/2024 6:29 PM EDT [facility] Ketones, Urine Negative Negative 09/28/2024 6:29 PM EDT [facility] Bilirubin, Urine Negative Negative 09/28/2024 6:29 PM EDT [facility] Blood, Urine Negative Negative 09/28/2024 6:29 PM EDT [facility] Nitrite, Urine Negative Negative 09/28/2024 6:29 PM EDT [facility] Urobilinogen, Urine Normal Normal 09/28/2024 6:29 PM T [facility] Leukocyte Esterase, Urine Trace(A) Negative 09/28/2024 6:29 PM EDT [facility] WBC, Urine 4(H) 0 - 2 /HPF 09/28/2024 6:29 PM EDT [facility] RBC, Urine <1 0 - 2 /HPF 09/28/2024 6:29 PM EDT [facility] Hyaline Casts, Urine 0 0 - 2 /LPF 09/28/2024 6:29 PM T [facility] Bacteria, Urine None None /HPF /HPF 09/28/2024 6:29 PM EDT [facility] Urine Urine specimen collection, clean catch / Unknown Non-Blood Collection / Unknown 09/28/2024 4:55 PM EDT 09/28/2024 5:55 PM EDT Aracely Alesha Lopes BUTTERMA[employer]ER LAB URINE ORDERABLES F inal Result [facility] [address] [place] [id number], [place] * (ABNORMAL) Urine Culture, Routine (09/28/2024 4:55 PM EDT) Culture Results Updated 09/30/2024 3:40 PM EDT [employer] [facility] Culture Escherichia coli(A) 09/30/2024 3:40 PM EDT [employer] [facility] Comment:10,000-49,000 CFU/mL of Escherichia coli Urine Urine specimen collection, clean catch / Unknown Non-Blood Collection / Unknown 09/28/2024 4:55 PM EDT 09/28/2024 6:19 PM EDT Narrative [facility] - 09/30/2024 3:40 PM EDT [facility] Received Date: MICRO NUMBER: [id number] SPECIMEN QUALITY: Adequate SOURCE: URINE CLEAN CATCH STATUS: FINAL Organism Antibiotic Method Susceptibility Escherichia coli Amikacin <=2: Susceptible Escherichia coli Ampicillin >=32: Resistant Escherichia coli Ampicillin + Sulbactam >=32: Resistant Escherichia coli Cefazolin 8: Resistant Comment: For uncomplicated UTI caused by E. coli, K. pneumoniae or P. mirabilis: Cefazolin is susceptible if JACK <32 mcg/mL and predicts susceptible to the oral agents cefaclor, cefdinir, cefpodoxime, cefprozil, cefuroxime, cephalexin and loracarbef. Escherichia coli Ceftazidime <=1: Susceptible Escherichia coli Cefepime <=1: Susceptible Escherichia coli Ceftriaxone <=1: Susceptible Escherichia coli Ciprofloxacin <=0.25: Susceptible Escherichia coli Ertapenem <=0.5: Susceptible Escherichia coli Gentamicin <=1: Susceptible Escherichia coli Meropenem <=0.25: Susceptible Escherichia coli Nitrofurantoin <=16: Susceptible Escherichia coli Piperacillin + Tazobactam 64: Intermediate Escherichia coli Tobramycin <=1: Susceptible Escherichia coli Trimethoprim + Sulfamethoxazole <=20: Susceptible Comment: Legend: S = Susceptible ??I = Intermediate R = Resistant ??NS = Not susceptible SDD = Susceptible Dose Dependent * = Not Tested ??NR = Not Reported NN = See Therapy Comments Aracely Lopes NP LAB MICROBIOLOGY - GEN ERAL ORDERABLES Final Result [employer] [facility] [place] [address] [facility] [address] [facility] [address], [place] [address], [employer] [facility] [address] [facility] [address], [place] [address], * (ABNORMAL) PSA, Total and Free (09/23/2024 7:39 AM EDT) Pathologist [facility] PSA 10.10(H) <=4.00 ng/mL 09/23/2024 8:40 AM EDT [facility] Comment: The total PSA value from this assay system is standardized against the WHO standard. ??The test result will be slightly lower (< 3 %) when compared to the equimolar-standardized total PSA(Tabitha Rodrick). ??Comparison of Serial PSA results should be interpreted with this fact in mind. ??PSA level, regardless of value should not be interpreted as absolute evidence of the presence or absence of disease. This test was performed using [employer] chemiluminescent method. ??Values obtained by different assay methods cannot be used interchangeably. PSA Free 0.902 ng/mL 09/23/2024 8:40 AM EDT [facility] Comment: This test was performed using [employer] chemiluminescent method. ??Values obtained by different assay methods cannot be used interchangeably. PSA % Free 9(L) >25 % 09/23/2024 8:40 AM EDT [facility] Comment: A cutoff of 25 % results in the detection of 92.5 % of prostate cancers and avoids unnecessary biopsy in 20.3 % of men without prostate cancer. Virtually all (99 %) of prostate cancers are detected with a cutoff of 30 %, but only 8.9 % of men without prostate cancer are spared biopsy. Blood Structure of peripheral vein / Unknown Venipuncture / Unknown 09/23/2024 7:39 AM EDT 09/23/2024 8:01 AM EDT us Marco Antonio Maldonado MD LAB BLOOD ORDERABLES Final Resu lt [facility] [address] [place] [address], * LAB - SCANNED (09/15/2024 8:23 AM EDT) us Unknown Provider LAB HISTORICAL RESULTS Final Result * CT Sinus WO Contrast (07/23/2024 4:31 PM EST) Anatomical Region Laterality Modality Head and Neck Computed Tomogra phy 07/24/2024 4:26 PM EST Impressions 07/26/2024 11:57 PM EST Scattered mild mucosal thickening in the paranasal sinuses. ??Patent drainage pathways. If this radiology report contains a blank impression section, it is an incomplete radiology report. ??Please contact the interpreting radiologist or applicable radiology division as soon as possible to obtain the completed interpretation. ? Workstation ID: [id number] Narrative 07/26/2024 11:57 PM EST EXAMINATION: CT of paranasal sinus region without contrast TECHNIQUE: Helical CT of paranasal sinus region performed without intravenous contrast. Multiplanar reformats created. CLINICAL INFORMATION: Age: 64 years, ??Gender: Male J01.00 - I10 - Acute maxillary sinusitis, unspecified COMPARISON: There are no prior studies available at this time. FINDINGS: FRONTAL, ANTERIOR ETHMOID, AND MAXILLARY SINUSES: Minimal mucosal thickening in the left maxillary sinus, in bilateral anterior ethmoid air cells and bilateral frontal sinuses. ??Right maxillary sinus clear. ?? MIDDLE MEATUS: Patent bilaterally. ??Bilateral kris bullosa and bilateral Devin cells. SPHENOID AND POSTERIOR ETHMOID SINUSES: Minimal mucosal thickening in sphenoid sinuses and posterior ethmoid air cells bilaterally. SPHENOETHMOIDAL RECESS: Patent bilaterally. NASAL CAVITY: Clear. No nasal spur or deviation. Marked thinning and possibly dehiscent sphenoid bony covering of the cavernous carotid arteries bilaterally. ??Bilateral anterior ethmoid artery surrounded by ethmoid air cells. ?? OTHER: No air fluid levels. ??No chronic bony sinus wall thickening. ??Atherosclerotic calcification. ?? Resulting Agency Comment [id number] Procedure Note Kameron Shannon MD - 07/27/2024 EXAMINATION: CT of paranasal sinus region without contrast TECHNIQUE: Helical CT of paranasal sinus region performed without intravenouscontrast. Multiplanar reformats created. CLINICAL INFORMATION: Age: 64 years, Gender: Male J01.00 - I10 - Acute maxillary sinusitis, unspecified COMPARISON: There are no prior studies available at this time. FINDINGS: FRONTAL, ANTERIOR ETHMOID, AND MAXILLARY SINUSES: Minimal mucosalthickening in the left maxillary sinus, in bilateral anterior ethmoid aircells and bilateral frontal sinuses. Right maxillary sinus clear. MIDDLE MEATUS: Patent bilaterally. Bilateral kris bullosa and bilateralHaller cells. SPHENOID AND POSTERIOR ETHMOID SINUSES: Minimal mucosal thickening insphenoid sinuses and posterior ethmoid air cells bilaterally. SPHENOETHMOIDAL RECESS: Patent bilaterally. NASAL CAVITY: Clear. No nasal spur or deviation. Marked thinning and possibly dehiscent sphenoid bony covering of thecavernous carotid arteries bilaterally. Bilateral anterior ethmoid arterysurrounded by ethmoid air cells. OTHER: No air fluid levels. No chronic bony sinus wall thickening.Atherosclerotic calcification. IMPRESSION: Scattered mild mucosal thickening in the paranasal sinuses. Patentdrainage pathways. If this radiology report contains a blank impression section, it is anincomplete radiology report. Please contact the interpreting radiologistor applicable radiology division as soon as possible to obtain thecompleted interpretation. Workstation ID: [id number] us Marco Antonio Maldonado MD IMG CT PROCEDURES Final Result * COLONOSCOPY (10/18/2020) Narrative Procedure Note Ronal Gaffney MD - 10/18/2020 11:16 AM EDT [facility] Patient Name: Akbar Radford Procedure Date: 10/18/2020 11:16 AM Date of : 1960 Age: 60 Room: [place] [id number] Gender: Male Note Status: Finalized Attending MD: Ronal Gaffney MD Procedure: Colonoscopy Indications: Rectal bleeding Providers: Ronal Gaffney MD Referring MD: Requesting Provider: Medicines: Monitored Anesthesia Care Complications: No immediate complications. Procedure: After I obtained informed consent, the scope was passed under direct vision. Throughout the procedure, the patient's blood pressure, pulse, and oxygen saturations were monitored continuously. The Colonoscope was introduced through the anus and advanced to theterminal ileum. The colonoscopy was performed withoutdifficulty. The patient tolerated the procedure well. Findings: Diverticula were found in the sigmoid colon. Internal hemorrhoids were found. Impression: - Diverticulosis in the sigmoid colon. - Internal hemorrhoids. - No specimens collected. Recommendation: - Return to primary care physician PRN. - Continue present medications. Ronal Gaffney MD 10/18/2020 11:44:59 AM This report has been signed electronically. Number of Addenda: 0 Note Initiated On: 10/18/2020 11:16 AM Estimated Blood Loss: Estimated blood loss: none. Ronal Gaffney MD PROVATION PROCEDURES Final Re sult from Last 3 Months or Most Recently Relevant to Health Maintenance Insurance [facility] HMO/POS Advance Directives * Full Code (Latest Code Status on File) Date Activated Date Inactivated Comments 10/02/2023 7:35 AM 10/02/2023 1:19 PM Care Teams Insulation Worker Furnace Installer Relationship Specialty Start Date End Date Marco Antonio Maldonado MD [address] [place] [id number] PCP - General Internal Medicine 08/21/21
--- OUTSIDE RECORDS SUMMARY | 2024-10-13 18:46 | XMS_ITS | Encounter Summary ---
Author Organization [facility] Address [address] [place] [address] Care Team Providers Care Humanities Professor Name Role Phone Marco Antonio Maldonado MD Primary Care Provider [phone] Encounter Details Date Type Department Care Team (Late st Contact Info) Description 09/27/2022 Orders Only [facility] Draw Site [address] [place] [id number] Marco Antonio Maldonado MD [address] [place] [address] [phone] Asthma, unspecified asthma severity, unspecified whether complicated, unspecified whether persistent (Primary Dx); Mixed hyperlipidemia; Elevated prostate specific antigen (PSA) Social History Tobacco Use Types Packs/Day Years [...] Description 11/27/2024 10:00 AM EDT Office Visit [facility] [address] [place] [phone] Circus Hand: Aracely Gonzalez NP [address] [place] [address] documented as of this encounter Visit Diagnoses Diagnosis Asthma, unspecified asthma severity, unspecified whether complicated, unspecified whether persistent (HCC)- Primary Mixed hyperlipidemia Elevated prostate specific antigen (PSA) documented in this encounter Care Teams Humanities Professor Relationship Specialty Start Date End Date Marco Antonio Maldonado MD [address] [place] [phone] PCP - General Internal Medicine 08/21/21 documented as of this encounter
--- OUTSIDE RECORDS SUMMARY | 2024-10-13 18:46 | XMS_ITS | Encounter Summary ---
Author Organization [facility] Address [address] [place] [address] Care Team Providers Care Central Supply Technician Supervisor Name Role Phone Marco Antonio Maldonado MD Primary Care Provider [phone] Encounter Details Date Type Department Care Team (Late st Contact Info) Description 02/19/2022 Orders Only [facility] Draw Site [address] [place] [id number] Marco Antonio Maldonado MD [address] [place] [address] [phone] Elevated prostate specific antigen (PSA) (Primary Dx); Liver disease Social History Tobacco Use Types Packs/Day Years [...] Description 11/27/2024 10:00 AM EDT Office Visit [facility] [address] [place] [phone] Tube Skiver: AnjuAracely Martinez NP [address] [place] [address] documented as of this encounter Visit Diagnoses Diagnosis Elevated prostate specific antigen (PSA)- Primary Liver disease Unspecified disorder of liver documented in this encounter Care Teams Central Supply Technician Supervisor Relationship Specialty Start Date End Date Marco Antonio Maldonado MD [address] [place] [id number] PCP - General Internal Medicine 08/21/21 documented as of this encounter
--- OUTSIDE RECORDS SUMMARY | 2024-10-13 18:47 | XMS_ITS | Data Portability ---
Author Organization [facility], , [facility] Address [address] [place], [place] Assessment No assessment recorded. Plan of Treatment Reminders Order Date Submit Date Provider Last Modified By Organization Details Last Modified Time Details Appointments None recorded. Lab PSA, total + free, serum or plasma 2023 024 [facility], [address] [place] [address] [address], [place], [address], 5 13:26:59 Referral urologist referral 2024 025 [facility] [place], [address] [place], [address], 5 16:21:33 Procedures None recorded. Surgeries None recorded. Imaging CT, sinuses, w/o contrast 2024 025 [facility] Referral # 2, [address] [place], [address], 5 00:40:11 Medication Orders azithromy moris 500 mg tablet 2024 025 jtrister [facility]/Pharmacy #0008, [address] , [place], [address], 5 21:13:24 fluticaso ne propionat e 50 mcg/actua tion nasal spray,jarocho pension 2024 025 [facility], [address], [place], [address], 5 16:24:15 activated charcoal 50 gram/240 mL oral suspensio n 2023 024 [facility] [address], [place], [address], 4 10:18:23 ondansetr on 4 mg disintegr ating tablet 2023 024 [facility] [address], [place], [address], 4 10:15:21 Pedialyte oral solution 2023 [facility], [address], [place], [address], 4 10:15:23 Patient TargetsNo targets recorded. Patient Instructions Encounter Date Encounter Id Patient Instructions Last Modified By Organization Details Last Modified Time 03/11/2024 [id number] diarrhea: care instructions jtrister Not available 03/19/2024 14:34:43 nausea and vomiting: care instructions jtrister Not available 03/19/2024 14:34:43 food poisoning: care instructions jtrister Not available 03/11/2024 10:22:26 Marco Antonio Bloom spent {{15 20* 30 40 45 60}} minutes of total service time on the date of the encounter performing medically appropriate exam and /or evaluation Counseling and educating the patient and or family/caregiver Ordering medications, tests and or procedures Referring and or communicating with other healthcare professionals Documenting clinical information in the health record. Risk and benefits of these interventions were discussed with patient in details.Patient understand all issues discussed during this visit. Patient understand actions advised during this visit:diagnostic tests and options for treatment(s). The patient was forewarned about common adverse effects of medications, possible drug and food interactions. Patient was advised to take medications as prescribed. The patient will contact me at [phone] if any symptoms or problems should occur.In the case of significant deterioration of the health contact 321. jtrister Not available 03/19/2024 14:34:34 04/08/2024 [id number] upper respirator y infection (cold): care instructions jtrister Not available 04/10/2024 20:29:35 Marco Antonio Bloom, spent {{15 20* 30 40 45 60}} minutes of total service time on the date of the encounter performing medically appropriate exam and /or evaluation Counseling and educating the patient and or family/caregiver Ordering medications, tests and or procedures Referring and or communicating with other healthcare professionals Documenting clinical information in the health record. Risk and benefits of these interventions were discussed with patient in details.Patient understand all issues discussed during this visit. Patient understand actions advised during this visit:diagnostic tests and options for treatment(s). The patient was forewarned about common adverse effects of medications, possible drug and food interactions. Patient was advised to take medications as prescribed. The patient will contact or at [phone] if any symptoms or problems should occur.In the case of significant deterioration of the health contact 911. jtrister Not available 04/13/2024 11:01:45 06/09/2024 [id number] prostate biopsy: about this test jtrister Not available 06/09/2024 10:24:22 hernia: care instructions jtrister Not available 06/09/2024 10:24:22 Post-procedures instructions were given. The patient was forewarned about common post-procedures signs, symptoms, and expected course of connective tissue healing. Take medications as prescribed.Follow recommended care instructions and exercises.The patient will contact or at [phone] if any symptoms or problems should occur. jtrister Not available 07/13/2024 12:05:28 Marco Antonio Bloom, spent {{15 20 30 40* 45 60}} minutes of total service time on the date of the encounter performing medically appropriate exam and /or evaluation Counseling and educating the patient and or family/caregiver Ordering medications, tests and or procedures Referring and or communicating with other healthcare professionals Documenting clinical information in the health record. Risk and benefits of these interventions were discussed with patient in details.Patient understand all issues discussed during this visit. Patient understand actions advised during this visit:diagnostic tests and options for treatment(s). The patient was forewarned about common adverse effects of medications, possible drug and food interactions. Patient was advised to take medications as prescribed. The patient will contact me at [phone] if any symptoms or problems should occur.In the case of significant deterioration of the health contact 911Jen jtrister Not available 07/13/2024 12:05:24 07/06/2024 [id number] Acute Sinusitis: Care Instructions jtrister Not available 07/06/2024 16:24:13 Marco Antonio Bloom, spent {{15 20* 30 40 45 60}} minutes of total service time on the date of the encounter performing medically appropriate exam and /or evaluation Counseling and educating the patient and or family/caregiver Ordering medications, tests and or procedures Referring and or communicating with other healthcare professionals Documenting clinical information in the health record. Risk and benefits of these interventions were discussed with patient in details.Patient understand all issues discussed during this visit. Patient understand actions advised during this visit:diagnostic tests and options for treatment(s). The patient was forewarned about common adverse effects of medications, possible drug and food interactions. Patient was advised to take medications as prescribed. The patient will contact me at [phone] if any symptoms or problems should occur.In the case of significant deterioration of the health contact 911. jtrister Not available 07/09/2024 11:07:32 09/28/2024 [id number] prostate biopsy: about this test jtrister Not available 09/28/2024 16:12:39 benign prostatic hyperplasia: care instructions jtrister Not available 09/28/2024 16:12:39 Marco Antonio Bloom, spent {{15 20* 30 40 45 60}} minutes of total service time on the date of the encounter performing medically appropriate exam and /or evaluation Counseling and educating the patient and or family/caregiver Ordering medications, tests and or procedures Referring and or communicating with other healthcare professionals Documenting clinical information in the health record. Risk and benefits of these interventions were discussed with patient in details.Patient understand all issues discussed during this visit. Patient understand actions advised during this visit:diagnostic tests and options for treatment(s). The patient was forewarned about common adverse effects of medications, possible drug and food interactions. Patient was advised to take medications as prescribed. The patient will contact me at [phone] if any symptoms or problems should occur.In the case of significant deterioration of the health contact Elizabeth sal Not available 10/01/2024 15:05:34 Reason for Referral Urologist Referral for Prost ate specific antigen above reference range Referring Physician: Marco Antonio Maldonado, Internal Medicine, Encounter Date: 09/28/2024 Results Created Date Observation Date Name Description Value Unit Range Abnormal Flag Note LastModifiedBy Organization Detail LastModifiedTime 07/27/[address], sinus es, w/o contr ast EXAMIN ATION: CT of [place] sinus region withou t contra st TECHNI QUE: Helica l CT of [place] sinus region perfor med withou t intrav enous contra st. Multip lanar reform ats create d. CLINIC AL INFORM ATION: Age: 64 years, Gender : Male J01.00 - I10 - Acute maxill osmar sinusi tis, unspec ified COMPAR LAILA: There are no prior studie s availa ble at this time. FINDIN GS: FRONTA L, ANTERI OR ETHMOI D, AND MAXILL OSMAR SINUSE S: Minima l mucosa l thicke krista in the left maxill osmar sinus, in bilate ral anteri or ethmoi d air cells and bilate ral fronta l sinuse s. Right maxill osmar sinus clear. MIDDLE MEATUS : Patent bilate rally. Bilate ral kris bullos a and bilate ral Devin cells. 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 SPHENO ETHMOI LYNN RECESS : Patent bilate rally. NASAL CAVITY : Clear. No nasal spur or deviat ion. Marked thinni ng and possib ly dehisc ent spheno id bony coveri ng of the cavern ous caroti d arteri es bilate rally. Bilate ral anteri or ethmoi d artery surrou nded by ethmoi d air cells. OTHER: No air fluid levels . No chroni c bony sinus wall thicke krista. Athero sclero tic calcif icatio n. IMPRES JUANIS: Scatte red mild mucosa l thicke krista in the parana lorena sinuse s. Patent draina ge pathwa ys. If this radiol ogy report contai ns a blank impres juanis sectio n, it is an incomp lete radiol ogy report . Please contac t the interp reting radiol ogist or applic able radiol ogy divisi on as soon as possib le to obtain the comple coleman interp retati on. Workst ation ID: [id number]' [id number] 198 INTERFACE [facility] [address] [facility] [address], [place], [address], 07/27/2024 00:40:11 07/27/19 25 07/23/2024 imagi ng/di agnos tic resul t No observ ation record ed. [facility] (Ct) [address] [facility] [address], [place], [address], 07/27/2024 00:42:03 10/07/19 25 10/06/2024 imagi ng/di agnos tic resul t No observ ation record ed. [facility] [address] [facility], [place], [address], 10/06/2024 14:12:03 10/09/19 25 MRI prost ate W wo contr ast W 3D refor mat STUDY: MRI of the pelvis (prost ate) withou t and with intrav enous contra st. INDICA TION: Elevat ed PSA. R97.20 - I10 - Elevat ed prosta te specif ic antige n (PSA). COMPAR LAILA: Prior abdomi nal MRI 2021, prosta te MRI 09/27/19 22 TECHNI QUE: Multip aramet otto (T2WI, DWI, DCE) contra st-enh anced MRI of prosta te was perfor med. Standa rd dose weight -based IV Gadoli nium-b ased contra st was admini stered with flush of 20cc saline at 3cc/se c. CLINIC AL INFORM ATION: PSA (trend if availa ble): 10.1 in September 2024, 8.0 in Februa ry 2024, 5.7 and Novemb er 2022, 4.5 in Septem analilia 2021 Previo us Biopsi es: None availa ble. FINDIN GS: PROSTA TE: The prosta te measur es 4.2 x 4.0 x 5.4 cm for a volume of 48 ml. Change s of BPH are presen t throug hout the transi tion zone. Periph eral Zone: There are scatte red foci of linear and wedge- shaped T2 signal hypoin tensit y throug hout the periph eral zone withou t mass effect or restri cted diffus ion, in keepin g with postin flamma tory change s (PI-RA DS 2). Lesion #: 1 Locati on: Left latera l, base (serie s 650, image 16). Size (measu red on ADC): 10 mm DWI PI-RAD S: 4 T2 PI-RAD S: 4 DCE: Positi ve Extrap rostat ic extens ion: Abuts the capsul e, withou t extrac apsula r extens ion identi fied Overal l PI-RAD S: 4 Transi tion Zone: Lesion #: 1 Locati on: Raw Shellfish Preparer ior right, base (serie s 3, image 24). Size (measu red on T2): 10 mm DWI PI-RAD S: 3 T2 PI-RAD S: 4 DCE: Positi ve Fibrom uscula r stroma invasi on: Absent Overal l PI-RAD S: 4 SEMINA L VESICL ES: No tumor invasi on. No hemorr abdoulaye. LYMPH NODES: No lympha denopa thy. BLADDE R: The bladde r demons trates diffus e wall thicke krista and trabec ulatio n, compat ible with sequel a of chroni c outlet obstru ction. Small divert icula format ion noted. No bladde r callus or mass. The distal ureter s and ureter ovesic al juncti ons are unrema rkable . OTHER: Partia lly visual ized innume rable hepati c cysts, as seen on prior MRI 2021. Partia lly visual ized tiny renal focus, potent ially cystic , small renal foci also seen on prior MRI. Sigmoi d colon divert icular diseas e and wall thicke krista. BONES AND SOFT TISSUE S: No suspic ious lesion s. Small fat-co ntaini ng left inguin al hernia . IMPRES JUANIS: 1. A 10 mm PI-RAD S 4 nodule at the left latera l periph eral zone at the base. 2. A 10 mm PI-RAD S 4 nodule at the touch up painter hand ior right transi tional zone at the base. _ PI-RAD S v2.1 Assess ment Catego joseph: PI-RAD S 1: Very low (clini robert signif icant cancer is highly unlike ly to be presen t) PI-RAD S 2: Low (clini robert signif icant cancer is unlike ly to be presen t) PI-RAD S 3: Interm ediate (the presen ce of clinic ally signif icant cancer is equivo javier) PI-RAD S 4: High (clini robert signif icant cancer is likely to be presen t) PI-RAD S 5: Very high (clini robert signif icant cancer is highly likely to be presen t) If this radiol ogy report contai ns a blank impres juanis sectio n, it is an incomp lete radiol ogy report . Please contac t the interp reting radiol ogist or applic able radiol ogy divisi on as soon as possib le to obtain the comple coleman interp retati on. Workst ation ID: [id number]' [id number] 198 SHIELD S ACCESS ION: [id number] ADDITI ONAL INFO: Prosta te specif ic antige n above refere nce range [facility] [address] [facility] [address], [place], [address], 10/11/2024 11:38:43 10/09/19 25 10/05/2024 MRI, prost ate, w/wo contr ast No observ ation record ed. [facility] [address] [facility], [place], [address], 10/11/2024 11:38:39 Result Notes None recorded. Procedures Surgical History Date Name Laterality Status Provider Name and Address Organization Details Recorded Time 06/09/20 24 Intra-articular Joint Aspiration and injection medium size joint completed Marco Antonio Maldonado MD [address] [place], [address], [facility] 06/09/2024 20:52:46 02/19/20 22 IV Infusion completed Marco Antonio Maldonado MD [address] [place], [address], [facility] 03/02/2022 08:02:49 02/19/20 22 OMT upper 7-8 completed Marco Antonio Maldonado MD [address] [place], [address], [facility], 02/18/2022 10:17:22 02/19/20 22 Cefazolin 2 Gms IV completed Marco Antonio Maldonado MD [address] [place], [address], [facility] 02/18/2022 10:05:37 02/18/20 22 IV Infusion completed Marco Antonio Maldonado MD [address] [place] [address], [phone], [facility], 02/17/2022 10:00:20 02/18/20 22 Cefazolin 2 Gms IV completed Marco Antonio Maldonado MD [address] [place], [address], [facility], 02/17/2022 10:00:02 02/17/20 22 IV Infusion completed Marco Antonio Maldonado MD [address] [place] [address], [address], [facility] 02/17/2022 08:54:04 02/17/20 22 Cefazolin 2 Gms IV completed Marco Antonio Maldonado MD [address] [place], [address], [facility] 02/17/2022 08:53:36 09/22/20 21 Intramuscular Injection completed Karine Main [facility] 03/15/2021 13:55:15 12/02/19 21 Dressing change completed Marco Antonio Maldonado MD [address] [place], [address], [facility], 12/01/2020 18:54:01 11/26/19 21 Dressing change completed Marco Antonio Maldonado MD [address] [place], [address], [facility], 11/27/2020 13:02:33 11/25/19 21 Ingrowing toenail (removal of the nail matrix) completed Marco Antonio Maldonado MD [address] [place], [address], [facility], 11/26/2020 13:27:18 08/03/19 21 LIGAMENTAL SHOULDER R completed Marco Antonio Maldonado MD [address] [place], [address], [facility], 09/27/2020 13:06:51 12/03/19 19 ECG completed Chen Rebecca [facility], 12/02/2018 16:36:08 Imaging Results Imaging Date Name Status LastModified by Organiz ation Details LastModified Time 07/27/2024 CT, sinuses, w/o contrast active INTERFACE [facility] [address] [facility] [address], [place], [address], 07/27/2024 00:40:11 07/23/2024 imaging/diagn ostic result active [facility] (Ct) [address], [place], [address], 07/27/2024 00:42:03 10/06/2024 imaging/diagn ostic result active [facility] [address] [facility], [place], [address], 10/06/2024 14:12:03 10/08/2024 MRI prostate W wo contrast W 3D reformat completed jtrister [facility] [address] [facility] [address], [place], [address], 10/11/2024 11:38:43 10/05/2024 MRI, prostate, w/wo contrast completed jtrister [facility] [address] [facility], [place], [address], 10/11/2024 11:38:39 Procedure Notes None recorded. Medical Equipment None Reported. Allergies Allergen ID Allergen Name Allergen Category Reaction Reaction Severity Criticality Documentation Date Start Date Code Code System Note Provider Name and Address Organization Details Recorded Time 98279 iodine medicatio n Not available Not available Not available 12/02/2018 5933 RxNorm Marco Antonio Maldonado MD [address] [place], [address] , [facility], 9 16:29:26 37903 Substance with sulfonami de structure and antibacte rial mechanism of action (substanc e) medicatio n Not available Not available Not available 12/02/2018 10613 8003 SNOMED YOAN pruitt, [facility], 9 16:43:26 Medications Name Sig Start Date Stop Date Status Note LastModified by Organization Details LastModified Time Prescript ion - Change active Not Available Not Available Not Available Prescript ion - New 10/09 completed sent RX to [facility] Not Available Not Available Not Available Prescript ion - Prior Authoriza tion Request active Not Available Not Available Not Available cefazolin 1 gram solution for injection Take 2 g every day by injectio n route as directed for 1 day. 02/28 completed Not Available Not Available Not Available doxycycli ne hyclate 100 mg capsule 12/02 completed Not Available Not Available Not Available azithromy moris 250 mg tablet 01/01 completed Not Available Not Available Not Available metronida zole 500 mg tablet Take 1 tablet every 8 hours by oral route for 14 days. 10/09 completed Not Available Not Available Not Available sildenafi l 100 mg tablet Take 1 tablet every day by oral route as needed for 10 days, for ed. 06/09 completed Not Available Not Available Not Available triamcino lone acetonide 0.1 % topical cream APPLY THIN COAT TO AFFECTED AREA TWICE A DAY 2023 active Not Available Not Available Not Avai lable hydrocort isone acetate 25 mg rectal supposito ry Insert 1 supposit ory every day by rectal route around the clock for 30 days. 08/11 completed Not Available Not Available Not Available oxycodone -acetamin ophen 5 mg-325 mg tablet Take 1 tablet every 6 hours by oral route as needed for 3 days. 03/15 completed Not Available Not Available Not Available lorazepam 0.5 mg tablet 12/02 completed Not Available Not Available Not Available tamsulosi n 0.4 mg capsule Take 1 capsule every day by oral route in the evening for 30 days. 06/12 completed Not Available Not Available Not Available Proctozon e-HC 2.5 % topical cream perineal applicato r APPLY A THIN LAYER TO THE AFFECTED AREA(S) BY TOPICAL ROUTE 2-4 TIMESDAI LY 06/12 completed Not Available Not Available Not Available simvastat in 20 mg tablet Take 1 tablet every day by oral route as directed for 60 days. 02/06 completed Not Available Not Available Not Available Cipro 500 mg tablet Take 1 tablet every 12 hours by oral route as directed for 14 days. 2024 active Not Available Not Available Not Avai lable clotrimaz ole-betam ethasone 1 %-0.05 % topical cream APPLY TO THE AFFECTED AND SURROUND ING AREAS OF SKIN BY TOPICAL ROUTE 2 TIMES PER DAY IN THE MORNING AND EVENING FOR 2 WEEKS 2023 active Not Available Not Available Not Avai lable prednison e 50 mg tablet 12/02 completed Not Available Not Available Not Available sertralin e 25 mg tablet Take 1 tablet every day by oral route. 02/15 completed Not Available Not Available Not Available hydrocort isone 2.5 % topical cream APPLY A THIN LAYER TO THE AFFECTED AREA(S) BY TOPICAL ROUTE 2 TIMES PER DAY 08/11 completed Not Available Not Available Not Available lorazepam 1 mg tablet TAKE 1 TABLET BY MOUTH TWICE A DAY NEEDED FOR 28 DAYS active Not Available Not Available No t Available albuterol sulfate HFA 90 mcg/actua tion aerosol inhaler INHALE 2 PUFFS INTO THE LUNGS EVERY 4 HOURS NEEDED FOR 30 DAYS 2023 active Not Available Not Available Not Avai lable ketoconaz ole 2 % topical cream APPLY TO THE AFFECTED AREA(S) BY TOPICAL ROUTE ONCE DAILY 08/11 completed Not Available Not Available Not Available ondansetr on 4 mg disintegr ating tablet Place 2 tablets twice a day by translin gual route as needed for 10 days. 04/08 completed Not Available Not Available Not Available fluticaso ne propionat e 50 mcg/actua tion nasal spray,jarocho pension SPRAY 1 SPRAY EVERY DAY BY INTRANAS AL ROUTE IN THE MORNING FOR 15 DAYS. active Not Available Not Available No t Available sertralin e 50 mg tablet TAKE 1 TABLET(S ) EVERY DAY BY ORAL ROUTE DIRECTED FOR 60 DAYS. 12/08 completed Not Available Not Available Not Available doxycycli ne hyclate 100 mg tablet Take 1 tablet twice a day by oral route for 10 days. 06/12 completed Not Available Not Available Not Available finasteri de 5 mg tablet Take 1 tablet every day by oral route in the morning for 30 days. 06/04 completed Not Available Not Available Not Available Tylenol Extra Strength 500 mg tablet Take 1 tablet every 6 hours by oral route as needed for 30 days. 12/08 completed Not Available Not Available Not Available azithromy moris 500 mg tablet Take 1 tablet every day by oral route for 3 days. 2024 active Not Available Not Available Not Avai lable rosuvasta tin 5 mg tablet TAKE 1 TABLET BY MOUTH EVERY DAY IN THE MORNING active Not Available Not Available No t Available rosuvasta tin 20 mg tablet Take 1 tablet every day by oral route for 90 days, for hyperlip idemia. 2024 active Not Available Not Available Not Avai lable activated charcoal 50 gram/240 mL oral suspensio n 50 g PO x1 x 2 times per day 06/09 completed Not Available Not Available Not Available nitrofura ntoin monohydra te/macroc rystals 100 mg capsule Take 1 capsule twice a day by oral route for 28 days. 03/15 completed Not Available Not Available Not Available eszopiclo ne 3 mg tablet Take 1 tablet every day by oral route at bedtime for 28 days. 2023 active Not Available Not Available Not Avai lable Suprep Bowel Prep Kit 17.5 gram-3.13 gram-1.6 gram oral solution Take 1 package every day by oral route as directed for 30 days. 03/15 completed Not Available Not Available Not Available testoster one 20.25 mg/1.25 gram per pump act.(1.62 %) transderm al gel DEVORA 4 PUMP PRESSES D UTD 01/01 completed Not Available Not Available Not Available Breztri Aerospher e 160 mcg-9mcg- 4.8mcg/ac tuation HFA aerosol inhaler Inhale 2 puffs twice a day by inhalati on route as needed for 28 days. 02/15 completed samples given Not Available Not Available Not Available Zepbound 2.5 mg/0.5 mL subcutane ous pen injector Inject by subcutan eous route for 28 days. active Not Available Not Available No t Available Vitals Date Recorded Body height Heart rate Body temperature Body mass index (BMI) Body weight Oxygen saturation Oxygen saturation in Arterial blood by Pulse oximetry Systolic blood pressure Diastolic blood pressure Provider Name and Address Organization Details Last Updated DateTime 5 170.18 cm 87 /min 97.6 [degF] 29.1 kg/m2 96493.1 8 g 97 % 97 % 130 mm[Hg] 70 mm[Hg] Chen Fernandez [facility], 5 15:37:15 Social History Question Answer Notes LastModified by Organizat ion Details LastModified Time Tobacco Smoking Status Former Smoker Not Available [employer] 04/08/2020 03:10:44 What Is Your Level Of Alcohol Consumption? None [id number] Information not available 04/08/2020 Have You Been To An Area Known To Be High Risk For COVID-19? No [email or web address] Information not available 11/25/2020 HAVE YOU HAD A RECENT FEVER OF >100.4 F No [email or web address] Information not available 11/25/2020 DO YOU HAVE SHORTNESS OF BREATH OR TROUBLE BREATHING No [email or web address] Information not available 11/25/2020 DO YOU HAVE DRY COUGH, RUNNY NOSE OR SORE THROAT No Information not available 11/25/2020 DO YOU HAVE CHILLS? No [email or web address] Information not available 11/25/2020 DO YOU HAVE MUSCLE PAIN, BODY ACHES? No [email or web address] Information not available 11/25/2020 DO YOU HAVE HEADACHE? No [email or web address] Information not available 11/25/2020 HAVE YOU RECENTLY LOST SENSE OF SMELL OR TASTE No [email or web address] Information not available 11/25/2020 DO YOU HAVE ONSET OF NAUSEA OR VOMITING? No [email or web address] Information not available 11/25/2020 HAVE YOU BEEN IN CONTACT WITH SOMEONE THAT TESTED POSITIVE FOR COVID19? No [email or web address] Information not available 11/25/2020 ARE YOU AWAITING COVID19 TEST RESULTS? No [email or web address] Information not available 11/25/2020 HAVE YOU TRAVELED OUTSIDE THE STATE OR COUNTRY IN THE PAST WEEKS? No [email or web address] Information not available 11/25/2020 Marital Status [email or web address] Grimesиван n not available 12/02/2018 What Was The Date Of Your Most Recent Tobacco Screening? 01/01/2019 [id number] Information not available 04/08/2020 Sex: Male Functional Status None recorded. Mental Status None recorded. Family History Nothing Reported. Medical History Condition Response Coronary Artery Disease N Gout N Metabolic Syndrome N Bipolar disorder N Hyperthyroidism N Hyperipidemia Y Lung Disease N Hypothyroidism N Depression N COPD N Pneumonia N Myofascial pain syndrome N TIA N Diabetes Mellutus type 1 N TMJ OA N Tobacco dependence N Headache (Migraines) N Knee OA N Alcoholism N Food sensitivity and intollerance N Valvular heart disease N Obesity N Cholecystitis N Diabetes Mellitus Type 2 N Cancer N Shoulder OA N Feet OA N Substance dependence N Skin disorder N Hepatitis alcoholic N Rheumatoid Arthritis N Hip OA N Schizophrenia N Atrial fibrillation N Fibromyalgia N Inflammatory bowel disease N DVT/PE N Skin Infection N Heart Conditions N Anxiety N Hepatitis A N Somatic dysfunction N Back pain (lumbar OA) N Gluten sensitivity N Headache (Tension) N Acne N Lyme disease N Hypertriglyceridemia N Hepatitis C N Anemia N Anemia B-12 defficiency N Back pain (thoracic OA) N Venous insufficiency N Heart Attack ([place]) N Radiculopathy N Dyspepsia N Bleeding Disorder N CHF N Seizures/Epilepsy N Joints replacement N Ankle OA N Fingers OA N BPH Y Wrist OA N Somatization N Carpal tunnel Syndrome N Urinary Tract Infection N Diverticulitis N CVA N Asthma Y Hepatitis B N Neck (Cervical) OA N Peripheral Vascular Disease N Elbow joint pain N Sleep Disorder N GERD/Reflux N Neuropathy N Pulmonary Embolism N Peptic Ulcer disease N Hypertension N Osteoporosis N Past Encounters Encounter ID Performer Location Encounter Start Date Encounter Closed Date Diagnosis/Indication Diagnosis SNOMED-CT Code Diagnosis ICD10 Code Diagnosis Note [id number] Marco Antonio Maldonado MD [address] [address] 12/02/2018 15:56:35 12/02/2018 17:14:20 Chronic anxiety 844226597 F41.9 Mixed hyperlipidemia 267 210490 E78.2 2 weeks ago pt had a blood work; I do not have results at the time of this visit Male hypogonadism 232911 06 E29.1 Electrocar diogram abnormal 543985991 R94.31 [id number] Marco Antonio Maldonado MD [address] [address] 01/01/2019 15:14:17 01/01/2019 16:19:34 Chronic prostatitis 76638610 N41.1 Mixed hyperlipidemia 267 633106 E78.2 2 weeks ago pt had a blood work; I do not have results at the time of this visit [id number] Marco Antonio Maldonado MD [address] [address] 02/06/2019 13:50:47 02/06/2019 15:21:08 Benign prostatic hyperplasia 816786111 N40.0 Chronic dermatitis 54653 007 L30.9 Male hypogonadism 568105 06 E29.1 Mixed hyperlipidemia 267 181779 E78.2 2 weeks ago pt had a blood work; I do not have results at the time of this visit [id number] Marco Antonio Maldonado MD [address] [address] 04/15/2019 12:42:09 04/15/2019 13:40:57 Chronic prostatitis 95861477 N41.1 Mixed hyperlipidemia 267 761851 E78.2 Depressive disorder 3548 9007 F32.9 [id number] Marco Antonio Maldonado MD [address] [address] 08/20/2019 12:57:26 08/20/2019 13:47:08 Benign prostatic hyperplasia 470159552 N40.0 Mixed hyperlipidemia 267 922384 E78.2 Hyperglycemia 08271156 R 73.9 Depressive disorder 3548 9007 F32.9 Pain in left thumb 61793 02095 862313 M79.645 [id number] Marco Antonio Maldonado MD [address] [address] 10/14/2019 14:28:27 10/20/2019 08:30:53 Dermatophytosis 28236825 B35.9 Benign ess ential hypertension 7021493 I10 Seasonal a llergic rhinitis 854181699 J30.2 Benign pro static hyperplasia 354427370 N40.0 [id number] Marco Antonio Maldonado MD [address] [address] 01/28/2020 15:29:11 02/03/2020 09:57:17 Benign prostatic hyperplasia 381947311 N40.0 Mixed hyperlipidemia 267 249373 E78.2 Persistent insomnia 1919 79254 G47.09 Depressive disorder 3548 9007 F32.9 Hyperglycemia 50475045 R 73.9 Hyperlipidemia 75897960 E78.5 Chronic dermatitis 14933 007 L30.9 Dyspnea 732204099 R06.00 [id number] Marco Antonio Maldonado MD [address] [address] 04/20/2020 10:22:17 04/20/2020 10:53:49 Suspected COVID-19 752252980 Z03.89 Chronic cough 20370013 R 05 Shoulder joint pain 2679 92290 M25.519 Prostate s pecific antigen above reference range 630508199 R97.20 Mixed hyperlipidemia 267 681684 E78.2 [id number] Marco Antonio Maldonado MD [address] [address] 06/02/2020 16:52:54 06/26/2020 15:25:43 Strain of abdominal muscle 553056855 S39.011A [id number] Marco Antonio Maldonado MD [facility] [address] [place] [address] 07/18/2020 10:56:56 07/27/2020 12:04:04 Ingrowing great toenail 829219762 L60.0 Prostate s pecific antigen above reference range 207480815 R97.20 [id number] Marco Antonio Maldonado MD [facility] [address] [place] [address] 08/03/2020 14:27:43 08/03/2020 15:16:31 Persistent insomnia 562393207 G47.09 Chronic prostatitis 1989 5009 N41.1 Ingrowing great toenail 213359807 L60.0 Umbilical hernia 7845127 07 K42.9 Dermatophytosis 40575096 B35.9 Mixed hyperlipidemia 267 473375 E78.2 Chronic dermatitis 84912 007 L30.9 Enthesopat hy of shoulder region 684475023 M77.9 [id number] Marco Antonio Maldonado MD [address] [address] 11/24/2020 14:22:07 11/24/2020 15:06:28 Ingrowing nail of toe of right foot 5467531875 5412127 L60.0 [id number] Marco Antonio Maldonado MD [address] [address] 11/25/2020 12:07:16 11/25/2020 13:02:34 Ingrowing great toenail 027471029 L60.0 [id number] MARCELINA MUNOZ [address] [address] 11/28/2020 11:35:20 11/28/2020 12:04:09 Change of dressing 68289340 Z48.00 Stable. No acute infection. F/u on for next dressing change. [id number] Marco Antonio Maldonado MD [address] [address] 12/01/2020 13:57:51 12/01/2020 14:18:38 Ingrowing great toenail 030577755 L60.0 [id number] [facility]ado [facility] [address] [place] [address] 03/15/2021 13:54:44 03/15/2021 14:16:01 Needs influenza immunization 124294002 Z28.3 Chronic dermatitis 78680 007 L30.9 Persistent insomnia 1919 35001 G47.09 Asthma 920093576 J45.90 9 [id number] [facility] [address] [place] [address] 08/11/2021 15:51:52 08/11/2021 16:31:29 Hemorrhoids 29749723 K64.9 Dermatophytosis 39727631 B35.9 Prostate s pecific antigen above reference range 519379005 R97.20 [id number] Marco [facility]donado [facility] [address] [place] [address] 12/08/2021 09:54:29 12/08/2021 11:00:32 Asthma 429251328 J45.909 Feeling stressed 3083677 06 Z73.[id number] [address] 02/15/2022 10:38:32 02/15/2022 11:04:02 Irreducible umbilical hernia 820371671 K42.0 [id number] [facility] [address] 02/16/2022 12:23:30 02/16/2022 14:16:45 Cellulitis of abdominal wall 63044410 L03.311 [id number] Marco [facility]donado [facility] [address] [place] [address] 02/17/2022 09:56:34 02/19/2022 13:13:41 Cellulitis of abdominal wall 35941611 L03.311 Umbilical hernia 1875225 07 K42.9 [id number] Marco Antonio Maldonado MD [address] [address] 02/18/2022 09:42:01 02/20/2022 08:28:38 Cellulitis of abdominal wall 05458703 L03.311 Lesion of liver 20865736 0 K76.9 Prostate s pecific antigen above reference range 809313025 R97.20 Somatic dy sfunction of cranium 323977569 M99.00 Cervical s omatic dysfunction 880684102 M99.01 Somatic dy sfunction of rib 188008858 M99.08 Somatic dy sfunction of thoracic region 424083275 M99.02 Somatic dy sfunction of lumbar region 078029381 M99.03 Somatic dy sfunction of ligament 961209137 M99.09 Somatic dy sfunction of sacral spine 555139403 M99.04 Somatic dy sfunction of pelvic region 758737400 M99.05 [id number] Marco Antonio Maldonado MD [address] [address] 05/15/2022 09:17:08 05/15/2022 09:37:50 COVID-19 908079859 U07.1 External hemorrhoids 239 77196 K64.4 [id number] Marco Antonio Maldonado MD [address] [address] 09/25/2022 10:49:20 09/25/2022 12:10:47 Asthmatic bronchitis 362442866 J45.909 Asthma 801214589 J45.90 9 Mixed hyperlipidemia 267 128216 E78.2 Prostate s pecific antigen above reference range 814907798 R97.20 [id number] Marco Antonio Maldonado MD [address] [address] 05/10/2023 09:37:37 05/10/2023 10:40:55 Hidradenitis suppurativa 18147654 L73.2 Benign pro static hyperplasia 755870790 N40.0 Screening for malignant neoplasm of colon 962165450 Z12.11 Screening for malignant neoplasm of prostate 388882069 Z12.5 Mixed hyperlipidemia 267 227322 E78.2 Medication review done by doctor 528886243 Z76.89 The patient underwent a clinical examinatio n, and the medication list was reviewed and reconciled . The pharmacolo gical management was modified, and follow-up visits and diagnostic tests were scheduled. The patient is currently stable. External hemorrhoids 239 62547 K64.4 Insomnia 359485351 G47.0 9 [id number] Marco Antonio Maldonado MD [address] [address] 06/12/2023 09:25:56 06/12/2023 10:10:29 Diverticulitis of colon 601564613 K57.32 Benign pro static hyperplasia 154698987 N40.0 External hemorrhoids 239 90643 K64.4 Mild inter mittent asthma 693226948 J45.20 [id number] Marco Antonio Maldonado MD [address] [address] 10/10/2023 13:07:01 10/10/2023 13:37:07 Dermatophytosis 89916343 B35.9 Mixed hyperlipidemia 267 271057 E78.2 Erectile dysfunction 860 682055 F52.21 Persistent insomnia 1919 25669 G47.09 [id number] Marco Antonio Maldonado MD [address] [address] 03/11/2024 10:20:33 03/11/2024 11:25:34 Food poisoning 22482756 T62.91XA Congee:Man y illnesses require good dietary management . Please follow the instructio ns for Congee preparatio n.Congee are [place] dietary recipes that have been used for thousands of years. Use these recipes during the acute phase of the disease, and when your condition improves ( usually 2-3 days), then gradually return to your regular diet.Instr uction:Adhesive Primer k the Rice (regular, white),Car rot for Dyspepsia, Flatulence , and water in the proportion : (1:1:5) in a covered pot for 4-6 hours on warm, or use the lowest flame possible. Crockpot works very well for congees. It is better to use too much water than too little. Use these preparatio ns during acute illness, in addition to medication s prescribed by a physician. Nausea 910960436 R11.0 Diarrhea 22587426 R19.7 [id number] Marco Antonio Maldonado MD [address] [address] 04/08/2024 10:03:56 04/08/2024 10:24:36 Acute upper respiratory infection 00412957 J06.9 Home Covid-19 test is NEGATIVE; oral hydration , ascorbic acid [id number] Marco Antonio [facility]ado [facility] [address] 06/09/2024 09:30:35 06/09/2024 11:00:34 Pain of left ankle joint 7584659520 7296576 M25.572 medium size joint was performed - left subtalar joint Hernia of anterior abdominal wall 130008059 K43.9 ventral and umbilical Persistent insomnia 1919 52244 G47.09 Patient is stable at present time on current management .Will continue current therapy. Feeling stressed 4999813 06 Z73.3 counseling Prostate s pecific antigen above reference range 831438022 R97.20 [id number] Marco Antonio Maldonado MD [address] [address] 07/06/2024 16:20:18 07/06/2024 17:15:48 Acute maxillary sinusitis 64946079 J01.00 [id number] Marco Antonio Maldonado MD [address] [address] 09/28/2024 15:17:52 09/28/2024 16:21:33 Benign prostatic hyperplasia 746431022 N40.1 Prostate s pecific antigen above reference range 980146970 R97.20 Health Concerns Section Related Observation LastModified by Organization Detai ls LastModified Time None Recorded Concern Status LastModified by Organization Details LastModified Time None Recorded Advance Directives Directive None Recorded Payers Encounter Date Sequence Insurance Name Policy Number Policy Rivera Covered Member ID Rivera Member ID Guarantor Name 03/11/2024 1 [facility] ([facility] [place] [id number] Akbar Radford [id number] Akbar Radford 04/08/2024 1 [facility] ([facility] [place] [id number] Akbar Radford [id number] Akbar Radford 06/09/2024 1 [place] [facility] ([facility] [place] [id number] Akbar Radford [id number] Akbar Radford 07/06/2024 1 [place] [facility] ([facility] [place] [id number] Akbar Radford [id number] Akbar Radford 09/28/2024 1 [place] [facility] ([facility] [place] [id number] Akbar Radford [id number] Akbar Radford Notes Date Note Type Note Provider Name and Address Organization Details Recorded Time 03/11/2024 text/html Akbar reports n ausea, abdominal discomfort, diarrhea, myalgia , weakness and fatigue after eating stale chicken sandwich 2 days ago. Telehealth:This visit was conducted via {{audio video audio and video*}} telecommunication via cell phone, that allows real time interaction between provider and patient. Patient provided verbal consent to perform this service and was advised of possible cost sharing responsibility. Verbal consent obtained today. Originating call site: [facility] office Distant Site: Patient's home Marco Antonio Maldonado MD [address] [place] [address], [phone], [facility], 03/19/2024 14:34:47 04/08/2024 text/html Akbar has been experiencing a sore throat, difficulty swallowing, and a headache, but he does not have a fever. These symptoms have persisted for three days. He woke up in the middle of the night with a sudden onset of moderate to severe throat pain. He took a Covid-19 test and it came back negative. Today, he is feeling very congested. Telehealth:This visit was conducted via {{audio video audio and video*}} telecommunication via cell phone, that allows real time interaction between provider and patient. Patient provided verbal consent to perform this service and was advised of possible cost sharing responsibility. Verbal consent obtained today. Originating call site: [facility] office Distant Site: Patient's home Marco Antonio Maldonado MD [address] [place], [address], [facility] 04/13/2024 11:01:49 06/09/2024 text/html Akbar reports experiencing chronic pain in his left ankle, which makes walking difficult and limits his range of motion. He also notes that he frequently wakes up during the night and does not feel well-rested after sleeping. Additionally, he experiences daytime fatigue and often wakes up too early. He has a chronic ventral and umbilical hernia that has gradually become symptomatic.History of elevated PSA: Previous MRI of the prostate was negative for malignancy. Marco Antonio Maldonado MD [address] [place], [address], [facility], 07/13/2024 12:05:47 07/06/2024 text/html Patient reports acute bilateral facial pain, congestion, runny nose, low grade fever, fatigue for 7 days.No therapy at present. Telehealth:This visit was conducted via {{audio video audio and video*}} telecommunication via cell phone, that allows real time interaction between provider and patient. Patient provided verbal consent to perform this service and was advised of possible cost sharing responsibility. Verbal consent obtained today. Originating call site: [facility] office Distant Site: Patient's home Marco Antonio Maldonado MD [address] [place], [address], [facility] 07/09/2024 11:07:37 09/28/2024 text/html Mr. Radford, a 64-year-old male, presents with elevated PSA levels (>10) over the past 6 months and symptoms of BPH, including occasional nocturia, dysuria, and bilateral post-intercourse lower abdominal pain . An MRI of the prostate is scheduled in a few days, and a prostate biopsy has been advised by the urology LOAN OPERATIONS SPECIALIST. Follow-up with urology is planned for prostate biopsy in November for further evaluation and management. Akbar is unhappy with this delayed plan for biopsy and asked forme to arrange second opinion Marco Antonio Maldonado MD [address] [place], [address], [facility] 10/01/2024 15:05:37
--- OUTSIDE RECORDS SUMMARY | 2024-10-13 18:47 | XMS_ITS | Encounter Summary ---
Author Organization [facility] Address [address] [place] [address] Care Team Providers Care Beer Cooler Name Role Phone Marco Antonio Maldonado MD Primary Care Provider [phone] Encounter Details Date Type Department Care Team (Late st Contact Info) Description 09/15/2024 Orders Only [facility] Lab Draw Site [address] [place] [id number] Marco Antonio Maldonado MD [address] [place] [phone] Elevated prostate specific antigen (PSA) (Primary Dx) Social History Tobacco Use Types [...] Description 11/27/2024 10:00 AM EDT Office Visit [facility] [address] [place] [address] Vendor Analyst: Aracely oGnzalez, TESSIE [address] [place] [address] documented as of this encounter Results * Due to [place] state law, this organization might not be sharing negative HIV tests. * (ABNORMAL) PSA, Total and Free (09/23/2024 7:39 AM EDT) PSA 10.10(H) <=4.00 ng/mL 09/23/2024 8:40 AM EDT [facility] Comment: The total PSA [...] of disease. This test was performed using Eugenia chemiluminescent method. ??Values obtained by different assay methods cannot be used interchangeably. PSA Free 0.902 ng/mL 09/23/2024 8:40 AM EDT [facility] Comment: This test was performed using Eugenia chemiluminescent method. ??Values obtained by different assay methods cannot be used interchangeably. PSA % Free 9(L) >25 % 09/23/2024 8:40 AM EDT [facility] Comment: A cutoff of [...] MD LAB BLOOD ORDERABLES Final Resu lt [facility] [address] [place] [address], documented in this encounter Visit Diagnoses Diagnosis Elevated prostate specific antigen (PSA)- Primary documented in this encounter Care Teams Beer Cooler Relationship Specialty Start Date End Date Marco Antonio Maldonado MD [address] [place] [address] PCP - General Internal Medicine 08/21/21 documented as of this encounter
--- OUTSIDE RECORDS SUMMARY | 2024-10-13 18:47 | XMS_ITS | Patient Health Record ---
Author Organization [facility] Address [address] [place], [place] [id number] Care Team Providers Care Mask Design Engineer Name Role Phone Erica RUSSO, Marco Antonio Primary Care Provider UnavailJaime Ko Unavailable [phone] Agiomavritis, Demosthenes Unavailable Unavai lable Allergies Allergen (clinical drug ingredient) Drug/Non Drug Allergy documented on EMR Reaction Allergy Type Onset Date Status Iodine Swelling, rash Drug Allergy Ac tive Sulfa Drugs BP Dropped Drug Allergy Acti ve Reason For Referral No Information Medications Medication SIG (Take, Route, Frequency, Duration) Notes Start Date End Date Status Vitamin B6 200 MG 1 tablet Orally Once a day for 30 day(s) Active Vitamin B12 1000 MCG 1 tablet Orally Onc e a day for 30 day(s) Active Lunesta 3 MG 1 tablet immediately before bedtime Orally Once a day Active Simvastatin 20 MG 1 tablet in the even ing Orally Once a day for 30 day(s) Active Ciprofloxacin HCl 250 MG ? mg 1 tablet O rally every 12 hrs Active Zoloft 50 MG 1 tablet Orally Once a day as needed Active Multivitamin 1 tablet Orally Once a day Active Problems Problem Type SNOMED Code ICD Code Onset Dates Problem Status W/U Status Risk Notes Problem Tobacco use (147053456) Tobacco use (Z72.0) Active confirmed Problem Obstructive sleep apnea (77474924) Obstructive sleep apnea (G47.33) Active confirmed Problem Pulmonary nodule (848715950) Pulmonary nodule (R91.1) Active confirmed Problem COPD - Chronic obstructive pulmonary disease (54450811) COPD (chronic obstructive pulmonary disease) (J44.9) Active confirmed Problem Pulmonary infiltrate (582922324) Pulmonary infiltrate (R91.8) Active confirmed Problem Cardiovascular symptoms (250502732) Pulmonary hyperinflation (R09.89) Active confirmed Plan Of Treatment Pending Test Test Name Order Date CT LUNG SCREENING 01/14/2019 Insurance Providers Payer Name Payer Address Payer Phone Subscriber Number Group Number Insured Name Patient Relationship to Insured Coverage Start Date Coverage End Date [facility] [address] [place] [phone] [id number] Akbar Radford Self - patient is the insured Medical (General) History Medical History History ICD Code Hyperlipidemia ? mild depression Surgical History Surgery Date(Month/Year) Appendectomy Nasal septoplasty UPPP Rotator cuff tear repair, left
--- OUTSIDE RECORDS SUMMARY | 2024-10-13 18:47 | XMS_ITS | Clinical Summary ---
Author Organization [facility] Address [address] [place] [address] Care Team Providers Care Manager Body Name Role Phone Marco Antonio Maldonado MD Primary Care Provider Allergies Active Allergy Reactions Criticality Noted Date [...] EDT): Doing well with simvastatin 20 mg. Encounters Date Type Department Care Team Description 10/12/2024 Community Orders [facility] EpicCare Link [address] [place] [address] Marco Antonio Maldonado MD 10/09/2024 Community Orders [facility] [address] [place] [address] Marco Antonio Maldonado MD 10/06/2024 1:10 PM EDT - 10/06/2024 11:59 PM EDT Hospital Encounter [facility] Ultrasound [address] [place] [address] Left testicular pain Discharge Disposition: Home or Self Care () 10/05/2024 Orders Only [facility] [address] [place] [address] Marco Antonio Maldonado MD Elevated prostate specific antigen (PSA) 10/01/2024 Community Orders [facility] Link [address] [place] [address] Marco Antonio Maldonado MD 09/30/2024 Orders Only [facility] Urology [address] [address] Photocopying Equipment Repairer: Aracely Gonzalez NP 09/28/2024 8:00 AM EDT Office Visit [facility] Urology [address] [address] Photocopying Equipment Repairer: Aracely Gonzalez NP Abnormal prostate specific antigen (PSA) (Primary Dx); Left testicular pain 09/28/2024 Telephone [facility]rology [address] [address] Photocopying Equipment Repairer: Aracely Gonzalez NP 09/15/2024 Orders Only [facility] Lab Draw Site [address] [place] [address] Marco Antonio Maldonado MD Elevated prostate specific antigen (PSA) (Primary Dx) 09/15/2024 Orders Only [facility] Urology [address] [address] Photocopying Equipment Repairer: Rohit Sinclair MD 09/11/2024 Telephone [facility] Urology [address] [id number] Photocopying Equipment Repairer: Murtaza López LPN 09/01/2024 Transcribe Orders [facility] Physician Referral Services [address] [place] [address] Marco Antonio Maldonado MD Elevated prostate specific antigen (PSA) (Primary Dx) 07/23/2024 3:27 PM EST - 07/23/2024 11:59 PM EST Hospital Encounter [facility] CT Scan [address] [place] [address] Marco Antonio Maldonado MD Acute maxillary sinusitis, recurrence not specified Discharge Disposition: Home or Self Care (01) from Last 3 Months Immunizations Immunization Administration Dates Next Due Influenza, Trivalent, OKSANA, Injectable 03/14/2017 ,05/09/2015,08/04/2014 Tetanus Toxoid, Reduced Diph theria Toxoid, and Acellular Pertussis Vaccine, Adsorbed 03/14/2017 Family History Medical History Relation Name Comments Cancer Father Cancer Other Mother Family History of rheumatoid arthritis /Family History of non-Hodgkin's lymphoma Relation Name Status Comments Father Alive Mother Alive Social History Tobacco Use Types Packs/Day Years [...] Description 11/27/2024 10:00 AM EDT Office Visit [facility] [address] [place] [address] - [place] [address] Photocopying Equipment Repairer: Aracely Gonzalez, TESSIE [address] [place] [address] Health Maintenance Due Date Last Done Comments FOBT / Fit Test 1960 HIV Screening 1960 Hepatitis C Screening 1960 Sigmoidoscopy 1960 Pneumococcal Vaccine: 50+ Years (1 of 2 - PCV) 1979 Zoster Vaccines (1 of 2) 2010 RSV Vaccine (60+ years old and patients) (1 - Risk 60-74 years 1-dose series) 2020 COVID-19 Vaccine ( season) 2024 04/09/2022, 04/29/2021, 09/09/2020, Additional history exists Alcohol/Substance Use Screening 06/24/2024 Depression Screening and Follow-Up 06/24/2024 Social Drivers of Health Annual Screening 06/24/2024 Influenza Vaccine (Season Ended) 2025 03/14/2017, 05/09/2015, 08/04/2014 Cologuard 05/22/2026 05/22/2023, 05/22/2023 DTaP,Tdap,and Td Vaccines (2 - Td or Tdap) 03/14/2027 03/14/2017 Colon Cancer Screening 10/18/2030 Colonoscopy 10/18/2030 10/18/2020, 04/2 12/2020, 07/22/2018, Additional history exists Hepatitis B Vaccines Aged Out No long er eligible based on patient's age to complete this topic Procedures * Due to [place] state law, this organization might not be [...] to Health Maintenance Results * Due to [place] state law, this organization might not be [...] obtain the completed interpretation. ? Workstation ID: [id number] Narrative 10/06/2024 2:08 PM EDT EXAMINATION: Scrotal [...] with a septation noted Resulting Agency Comment [id number] Procedure Note Brian West MD - 10/06/2024 [...] possible to obtain thecompleted interpretation. Workstation ID: [id number] us Aracely Lopes [employer] [facility] IMG US PROCEDURES Shagufta l Result * [...] obtain the completed interpretation. ? Workstation ID: [id number] Narrative 10/08/2024 1:52 PM EDT STUDY: MRI [...] fat-containing left inguinal hernia. Resulting Agency Comment [id number] Procedure Note Donaldo Bliss MD - 10/08/2024 [...] possible to obtain thecompleted interpretation. Workstation ID: [id number] us Marco Antonio Maldonado MD IMG MRI PROCEDURES Final Result * Guzman Top, Urine (09/28/2024 4:55 PM EDT) Pathologist [facility] Extra Tube Hold for add-ons. 09/28/2024 9:05 PM EDT [facility] Comment:Auto resulted. Urine Urine specimen collection, clean catch / Unknown Non-Blood Collection / Unknown 09/28/2024 4:55 PM EDT 09/28/2024 5:54 PM EDT us Aracely Lopes [employer] [facility] [facility] LAB URINE ORDERABLES F inal Result [facility] [address] [place] [address], [place] * (ABNORMAL) Urinalysis W/Reflex to Microscopic & Culture (09/28/2024 4:55 PM EDT) Color, Urine Light Yellow Colorless, Light Yellow, Yellow, Dark Yellow 09/28/2024 6:29 PM EDT [facility] Clarity, Urine Clear Clear 09/28/2024 6:29 PM EDT [facility] Specific [place], Urine 1.005 1.005 - 1.030 09/28/2024 6:29 PM EDT [facility] pH, Urine 6.0 4.6 - 8.0 09/28/2024 6:29 PM EDT [facility] Protein, Urine Negative Negative 09/28/2024 6:29 PM EDT [facility] Glucose, Urine Negative Negative 09/28/2024 6:29 PM EDT [facility] Ketones, Urine Negative Negative 09/28/2024 6:29 PM EDT [facility] Bilirubin, Urine Negative Negative 09/28/2024 6:29 PM EDT [facility] Blood, Urine Negative Negative 09/28/2024 6:29 PM EDT [facility] Nitrite, Urine Negative Negative 09/28/2024 6:29 PM EDT [facility] Urobilinogen, Urine Normal Normal 09/28/2024 6:29 PM EDT [facility] Leukocyte Esterase, Urine Trace(A) Negative 09/28/2024 6:29 PM EDT [facility] WBC, Urine 4(H) 0 - 2 /HPF 09/28/2024 6:29 PM EDT [facility] RBC, Urine <1 0 - 2 /HPF 09/28/2024 6:29 PM EDT [facility] Hyaline Casts, Urine 0 0 - 2 /LPF 09/28/2024 6:29 PM EDT [facility] Bacteria, Urine None None /HPF /HPF 09/28/2024 6:29 PM EDT [facility] Urine Urine specimen collection, clean catch / Unknown Non-Blood Collection / Unknown 09/28/2024 4:55 PM EDT 09/28/2024 5:55 PM EDT us Aracely Lopes NP LAB URINE ORDERABLES F inal Result [facility] [address] [place] [address], [place] * (ABNORMAL) Urine Culture, Routine (09/28/2024 4:55 PM EDT) Culture Results Updated 09/30/2024 3:40 PM EDT [facility] Culture Escherichia coli(A) 09/30/2024 3:40 PM EDT [facility] Comment:10,000-49,000 CFU/mL of Escherichia coli Urine Urine specimen collection, clean catch / Unknown Non-Blood Collection / Unknown 09/28/2024 4:55 PM EDT 09/28/2024 6:19 PM EDT Narrative [facility] - 09/30/2024 3:40 PM EDT [facility] Received Date: MICRO NUMBER: [id number] SPECIMEN QUALITY: Adequate SOURCE: URINE CLEAN CATCH [...] MICROBIOLOGY - GEN ERAL ORDERABLES Final Result CINTHYA MOTT [address] [place] [address] [address]rd Floor, [place] [address], [place] [phone] [facility] [address] Floor, [place] [address], [place] [phone] * (ABNORMAL) PSA, Total and Free (09/23/2024 7:39 AM EDT) PSA 10.10(H) <=4.00 ng/mL 09/23/2024 8:40 AM EDT [facility] Comment: The total PSA value from this assay system is standardized against the WHO standard. ??The test result will be slightly lower (< 3 %) when compared to the equimolar-standardized total PSA(Tabitha Camden [place]). ??Comparison of Serial PSA results should be interpreted with this fact in mind. ??PSA level, regardless of value should not be interpreted as absolute evidence of the presence or absence of disease. This test was performed using Eugenia chemiluminescent method. ??Values obtained by different assay methods cannot be used interchangeably. PSA Free 0.902 ng/mL 09/23/2024 8:40 AM EDT [facility] Comment: This test was performed using Eugenia chemiluminescent method. ??Values obtained by different assay methods cannot be used interchangeably. PSA % Free 9(L) >25 % 09/23/2024 8:40 AM EDT [facility] Comment: A cutoff of [...] MD LAB BLOOD ORDERABLES Final Resu lt [facility] [address] [place] [address], [place] * LAB - SCANNED (09/15/2024 8:23 AM EDT) us Unknown Provider MD LAB HISTORICAL RESULTS Final Result * CT [...] obtain the completed interpretation. ? Workstation ID: [id number] Narrative 07/26/2024 11:57 PM EST EXAMINATION: CT [...] thickening. ??Atherosclerotic calcification. ?? Resulting Agency Comment [id number] Procedure Note Kameron Shannon MD - 07/27/2024 [...] possible to obtain thecompleted interpretation. Workstation ID: [id number] us Marco Antonio Maldonado MD IM CT PROCEDURES Final Result * COLONOSCOPY (10/18/2020) Narrative Procedure Note Ronal Gaffney MD - 10/18/2020 11:16 AM EDT [facility] Patient Name: Akbar Radford Procedure Date: 10/18/2020 11:16 AM Date of : 1960 Age: 60 Room: [place] [address] Gender: Male Note Status: Finalized Attending MD: [...] Estimated Blood Loss: Estimated blood loss: none. us Ronal Gaffney MD PROVATION PROCEDURES Final Re sult from Last 3 Months or Most Recently Relevant to Health Maintenance Insurance [facility] HMO/POS Advance Directives * Full Code (Latest Code Status on File) Date Activated Date Inactivated Comments 10/02/2023 7:35 AM 10/02/2023 1:19 PM Care Teams Manager Body Relationship Specialty Start Date End Date Marco Antonio Maldonado MD [address] [place] [address] PCP - General Internal Medicine 08/21/21
--- OUTSIDE RECORDS SUMMARY | 2024-10-13 18:47 | XMS_ITS | Clinical Summary ---
Author Organization [facility] [employer] [facility] Address [address] [place] [address] Care Team Providers Care Nuclear Officer Name Role Phone Pcp, No Primary Care Provider [phone] Social History Tobacco Use Types Packs/Day Years Used Date Smoking Tobacco: Never Assessed Sex and Gender Information Value Date Recorded Sex Assigned at Not on file Legal Sex Male 11:39 AM EST Gender Identity Not on file Sexual Orientation Not on file Plan of Treatment Health Maintenance Due Date Last Done Comments Colorectal Cancer: COLONOSCO PY Screening every 10 yrs (or Modifier) 1960 Depression: Screening Annual ly using PHQ-2/9 in Adults 18 yrs or above (or HM Modifier)([facility]) 1960 Hepatitis C Virus Infection in Adolescents and Adults: Screening (or Modifier) ([facility]) 1978 [facility] Screening Reminder: Radha moise for all adults ([facility]) 1978 Tobacco Smoking Cessation: i n Adults excluding Women: Behavioral and Pharmacotherapy Interventions ([facility]) 1978 Lipid Screening: Every 5 yrs for Men aged 35+ (or HM Modifier) ([facility]) 1996 Colorectal Cancer Screening 45 -75 Yrs (or HM Modifier) 2005 Colorectal Cancer: FLEXIBLE SIGMOIDOSCOPY Screening every 5 yrs 2005 Colorectal Cancer: Fecal Imm unochemical Test (FIT) Annually [facility] 2005 Colorectal Cancer: High-sens itivity gFOBT Screening Annually [facility] 2005 Colorectal Cancer: Stool Col oguard Screening every 3 yrs 2005 Colorectal Cancer:CT Colonog junior Screening every 5 yrs 2005 Pneumococcal Vaccination Scr eening: Patients 50+ yrs of age ([facility]) (1 of 1 - PCV) 2010 Zoster/Shingles Vaccine Seri es Screening: Adults aged 18+ yrs (or HM Modifiers)([facility]) (1 of 2) 2010 COVID-19 Vaccine Screening: Initial Series and Booster Status ([facility]) ( - 2023- season) 2024 Flu Vaccination: Yearly for ages 18mos through 64 years (or Modifier)([facility]) 01/22/2025 DTaP/Tdap/Td Vaccines ([facility]) (2 - Td or Tdap) 03/14/2017 RSV Vaccines (1 - 1-dose 75+ series) 2035 [employer] Not on file Insurance [facility] Care Teams Nuclear Officer Relationship Specialty Start Date End Date Abby, Navya PCP - General Family Medicine 07/06/20
--- OUTSIDE RECORDS SUMMARY | 2024-10-13 18:47 | XMS_ITS | Encounter Summary ---
Author Organization [facility] Address [address] [place] [address] Care Team Providers Care Two Needle Machine Operator Name Role Phone Marco Antonio Maldonado MD Primary Care Provider [phone] Encounter Details Date Type Department Care Team (Late st Contact Info) Description 04/20/2020 Orders Only [facility] [address] [place] [address] Marco Antonio Maldonado MD [address] [place] [phone] Exposure to SARS-associated coronavirus (Primary Dx) Social History Tobacco Use Types Packs/Day Years Used Date Smoking Tobacco: Every Day Cigars Smokeless Tobacco: Never Comments:: Alcohol Use Standard Drinks/Week Comments Never 0 (1 standard drink = 0.6 oz pur e alcohol) Sex and Gender Information Value Date Recorded Sex Assigned at Male 09/04/2021 9:34 AM EDT Legal Sex Male 3:41 AM EDT Gender Identity Male 09/04/2021 9:34 AM EDT Sexual Orientation Straight 09/04/2021 9: 34 AM EDT documented as of this encounter Plan of Treatment Upcoming Encounters Date Type Department Care Team (Late st Contact Info) Description 11/27/2024 10:00 AM EDT Office Visit [facility] [address] [place] [address] Manager Generation: Anju Lopes, Aracely Eduardo NP [address] [place] [address] documented as of this encounter Results * Due to [place] state law, this organization might not be sharing negative HIV tests. * COVID-19 PCR, TECHNICAL ILLUSTRATOR/OP/Saliva (04/21/2020 9:24 AM EDT) SARS CoV 2 RNA, RT PCR Not Detected Not Detected 04/21/2020 3:22 PM EDT [facility] Comment:A Not Detected (Nega tive) test result is indicative of the absence of SARS-CoV-2 RNA at the level of LoD (Limit of Detection). A negative result does not rule out the possibility of COVID-19 and should not be used as the sole basis for treatment or patient management decisions. If COVID-19 is still suspected, based on exposure history together with other clinical findings, re-testing should be considered. Saliva Mouth region structure / Unknown Non-Blood Collection / Unknown 04/21/2020 9:24 AM EDT 04/21/2020 9:51 AM EDT Narrative [facility] - 04/21/2020 3:22 PM EDT These tests were developed, validated, and their performance characteristics determined by the Molecular Virology Laboratory at [facility] under CLIA [id number]. They have not been cleared or approved by the U.S. Food and Drug Administration (FDA). FDA Policy for Diagnostic Tests for Coronavirus Disease-2019 during the Public Health Emergency issued September 07, 2019, is followed. us Marco Antonio Maldonado MD LAB BODY FLUIDS AND STOOLS TIERRA SHINE Final Result [facility] [address] [place] [address], documented in this encounter Visit Diagnoses Diagnosis Exposure to SARS-associated coronavirus- Primary documented in this encounter Additional Health Concerns Infection Onset Date Last Indicated Resolved Time COVID-19 - Suspected infection 04/20/2020 04/21/2020 04/21/2020 3:22 PM EDT documented as of this encounter Care Teams Two Needle Machine Operator Relationship Specialty Start Date End Date Marco Antonio Maldonado MD [address] [place] [address] PCP - General Internal Medicine 08/21/21 documented as of this encounter
--- OUTSIDE RECORDS SUMMARY | 2024-10-13 18:47 | XMS_ITS | Continuity of Care Document ---
Author Organization [facility] Address [address] [place] [address] Care Team Providers Care County Program Technician Name Role Phone Mark Maldonado MD Primary Care Provider [phone] Encounters Date Type Department Care Team Description 02/18/2020 Telephone [facility] [address] [place] [phone] Gabino Bradshaw DPM FYI 02/16/2020 3:30 PM EDT Office Visit [facility] [address] [place] [phone] Gabino Bradshaw DPM Pronation of both feet (Primary Dx) 02/09/2020 Travel 02/09/2020 9:50 AM EDT Office Visit [facility] [address] [place] [phone] Gabino Bradshaw DPM Ingrowing toenail (Primary Dx) 02/08/2020 Telephone [facility] [address] [place] [phone] Gabino Bradshaw DPM Patient Questions 01/14/2020 2:50 PM EDT Office Visit [facility] [address] [place] [phone] Gabino Bradshaw DPM Ingrowing toenail (Primary Dx) 01/13/2020 Travel 06/02/2019 9:10 AM EST Consult (Initial) [facility] [address] [place] [phone] Gabino Bradshaw, DPDelmar Ingrowing toenail (Primary Dx); Paronychia of toe, unspecified laterality Allergies Active Allergy Reactions Criticality Noted Date Comments Sulfa Antibiotics Dizzy/Confused Medium 06/02/2019 Blood pressure drop and will become faint and dizzy Iodine Maculopapular Rash High 06/02/2019 Medications Sertraline HCl (ZOLOFT) 50 MG tablet TAKE 1 TABLET (50 MG TOTAL) BY MOUTH EVERY EVENING INS MAX 60 DAYS 10/21/2019 Active Rosuvastatin Calcium (CRESTOR) 20 MG tablet Take 20 mg by mouth 1 (one) time each day 11/26/2019 Active Cyanocobalamin (Vitamin B12) 1000 MCG Tab CR 1 tablet daily Active Eszopiclone (Lunesta) tablet 1/2 pill PRN Active HYDROCORTISONE, RECTAL, (ANUSOL-HC) 2.5 % rectal cream NEEDED 09/02/2019 Acti ve Social History Smoking Status as of 10/13/2024 Tobacco Use Types Packs/Day Years Used Date Smoking Tobacco: Never Assessed Intimate Partner Violence Answer Date R ecorded Fear of Current or Ex-Partner Not on file Emotionally Abused Not on file 02/14/2023 Physically Abused Not on file 02/14/2023 Sexually Abused Not on file 02/14/2023 Feel Safe at Home Not on file 02/14/2023 Sex and Gender Information Value Date Recorded Sex Assigned at Not on file Legal Sex Male 9:24 AM EST Gender Identity Not on file Sexual Orientation Not on file Plan of Treatment Not on file Visit Diagnoses Diagnosis Start Date Ingrowing toenail Ingrowing nail 06/02/2019 Paronychia of toe, unspecified laterality 06/02/2019 Ingrowing toenail Ingrowing nail 01/14/2020 Ingrowing toenail Ingrowing nail 02/09/2020 Pronation of both feet 02/16/2020 Care Teams County Program Technician Relationship Specialty Start Date End Date Mark Maldonado MD [address] [place] [address] PCP - General Internal Medicine 06/01/19
--- OUTSIDE RECORDS SUMMARY | 2024-10-13 18:47 | XMS_ITS ---
Author Organization [facility] Address [address] [place] [address] [address] [place] [address] Care Team Providers Care Credit Review Analyst Name Role Phone JAYA MCDOWELL Primary Care Provider Dunia Sanchez Unavailable [phone] REASON FOR VISIT WSC: COLO + FIT INS BCBS PCP DR. MCDOWELL PREP SUTAB SM Medications Medication SIG (Take, Route, Frequency, Duration) Notes Start Date End Date Status Sutab 0.225 g-0.188 g-1.479 g as directed Coupon information: BIN: [id number] PCN: CN GRP: [id number] ID: [id number] 07/26/2023 Active Encounters Encounter Location Date Provider Diagnosis [address] [phone] 08/16/2023 Dunia Sandy Plan Of Treatment No Information Progress Notes * RAMAN HYDEDOB:1960 (64 yo M)Acc No.[id number]:08/16/2023 Progress Notes Patient:?RAMAN HYDE Provider:Krista Sandy MD :1960???Age:63 Y???Sex:Male Phan e:08/16/2023 Address:[address] [place] [phone] Pcp:JAYA MCDOWELL Subjective: * Chief Complaints: * ???1. WSC: COLO + FIT INS BC BS PCP DR. MCDOWELL PREP SUTAB SM. * Medical History:? * Medications:?Taking Sutab 0. 225 g-0.188 g-1.479 g tablet as directed Coupon information: BIN: [id number] PCN: CN GRP: [id number] ID: [id number] Objective: * Vitals:? Assessment: Plan: * Treatment: * * Electronic signature of Nagi Sandy M.D. on 10/13/2024 at 06:47 PM EDT Sign off status: Pending * Provider:Krista Sandy MD Date:?07/26 Generated for Margoth santana/Patricia/Rosina on:?10/13/2024 06:47 PM EDT
--- OUTSIDE RECORDS SUMMARY | 2024-10-13 18:47 | XMS_ITS | Patient Health Record ---
Author Organization [facility] Address [address] [facility] [address] [place] [address] Care Team Providers Care Rn Acute Dialysis Name Role Phone JAYA MCDOWELL Primary Care Provider Dunia Sanchez Unavailable [phone] Reason For Referral No Information Medications Medication SIG (Take, Route, Frequency, Duration) Notes Start Date End Date Status Sutab 0.225 g-0.188 g-1.479 g as directed Coupon information: BIN: [id number] PCN: CN GRP: [id number] ID: [id number] 07/26/2023 Active Plan Of Treatment No Information Insurance Providers Payer Name Payer Address Payer Phone Subscriber Number Group Number Insured Name Patient Relationship to Insured Coverage Start Date Coverage End Date [facility] [address] [place] [address] [id number] RAMAN HYDE Self - patient is the insured
--- OUTSIDE RECORDS SUMMARY | 2024-10-13 18:47 | XMS_ITS ---
Author Organization [facility] Address [address] [place] [phone] Care Team Providers Care Strategic Marketing Specialist Name Role Phone JAYA MCDOWELL Primary Care Provider Dunia Sanchez Unavailable [phone] REASON FOR VISIT PREP Medications Medication SIG (Take, Route, Frequency, Duration) Notes Start Date End Date Status Sutab 0.225 g-0.188 g-1.479 g as directed Coupon information: BIN: [id number] PCN: CN GRP: [id number] ID: [id number] 07/26/2023 Active Encounters Encounter Location Date Provider Diagnosis [facility] [address] [place] [phone] 07/26/2023 Dunia Sandy Plan Of Treatment Medication Medication Name Sig Start Date Stop Date Notes Sutab 0.225 g-0.188 g-1.479 g as directe d Coupon information: BIN: [id number] PCN: CN GRP: [id number] ID: [id number] 07/26/2023 Progress Notes * RAMAN HYDEDOB:1960 (63 yo M)Acc No.[id number]:07/26/2023 Patient:?RAMAN HYDE :1960???Age:63 Y???Sex:Male Address:[address] [place] [phone] * Refills? Start Sutab tablet, 0.225 g-0.188 g-1.479 g, Coupon information: BIN: [id number] PCN: CN GRP: [id number] ID: [id number], 1 Kit, as directed * true * Date:? Generated for Margoth santana/Patricia/Rosina on:?10/13/2024 06:46 PM EDT
== END 2024-10-13 16:50 | disposition home or self-care (01) ==
LOC: HO.HUSH 16:18
PROVIDERS: PCP Internal Medicine; Visit Provider Urology
DX: N32.0 Bladder-neck obstruction (principal); R97.20 Elevated prostate specific antigen [PSA]
CPT/HCPCS: 99204

== ENCOUNTER → 2024-10-13 16:18 | Outpatient (BNVA) | payer BC, SELFPAY | PROVIDERS: PCP Internal Medicine; Visit Provider Urology | DX: Z13.89 Encounter for screening for other disorder (principal) ==

== ENCOUNTER 2024-11-23 09:11 | Day surgery (SDC) | payer BC, SELFPAY ==
--- OUTSIDE RECORDS SUMMARY | 2024-10-30 10:29 | XMS_ITS | Encounter Summary ---
Author Organization [facility] Address [address] [place] [address] Care Team Providers Care Family Protection Specialist Name Role Phone Marco Antonio Maldonado MD Primary Care Provider [phone] Encounter Details Date Type Department Care Team (Late st Contact Info) Description 02/19/2022 Orders Only [facility] [place] [facility] Draw Site [address] [place] [id number] Marco Antonio Maldonado MD [address] [place] [address] [phone] Elevated prostate specific antigen (PSA) (Primary Dx); [...] Description 11/27/2024 10:00 AM EDT Office Visit [facility] [address] [place] [phone] Contact Agent: AnjuAracely Martinez NP [address] [place] [address] documented as of this encounter Visit Diagnoses Diagnosis Elevated prostate specific antigen (PSA)- Primary Liver disease Unspecified disorder of liver documented in this encounter Care Teams Family Protection Specialist Relationship Specialty Start Date End Date Marco Antonio Maldonado MD [address] [place] [phone] PCP - General Internal Medicine 08/21/21 documented as of this encounter
--- OUTSIDE RECORDS SUMMARY | 2024-10-30 10:29 | XMS_ITS | Encounter Summary ---
Author Organization [facility] Address [address] [place] [address] Care Team Providers Care Rail Filler Name Role Phone Marco Antonio Maldonado MD Primary Care Provider [phone] Encounter Details Date Type Department Care Team (Late st Contact Info) Description 09/27/2022 Orders Only [facility] [place] [facility] Draw Site [address] [place] [phone] Marco Antonio Maldonado MD [address] [place] [address] [phone] Asthma, unspecified asthma severity, unspecified whether complicated, [...] Description 11/27/2024 10:00 AM EDT Office Visit [facility] [address] [place] [address] Naphthalene Operator Helper: Aracely Gonzalez NP [address] [place] [address] documented as of this encounter Visit Diagnoses Diagnosis Asthma, unspecified asthma severity, unspecified whether complicated, unspecified whether persistent (HCC)- Primary Mixed hyperlipidemia Elevated prostate specific antigen (PSA) documented in this encounter Care Teams Rail Filler Relationship Specialty Start Date End Date Marco Antonio Maldonado MD [address] [place] [phone] PCP - General Internal Medicine 08/21/21 documented as of this encounter
--- OUTSIDE RECORDS SUMMARY | 2024-10-30 10:29 | XMS_ITS | Encounter Summary ---
Author Organization [facility] Address [address] [place] [address] Care Team Providers Care Retail And Restaurant Name Role Phone Marco Antonio Maldonado MD Primary Care Provider [phone] Encounter Details Date Type Department Care Team (Late st Contact Info) Description 02/16/2022 Orders Only [facility] XRay [address] [place] [address] Mikhail Dorantes MD [address] [place] [address] Social History Tobacco Use Types Packs/Day Years [...] Description 11/27/2024 10:00 AM EDT Office Visit [facility] [address] [place] [phone] Options Trader: Anju Lopes, Aracely Eduardo NP [address] [place] [address] documented as of this encounter Visit Diagnoses Not on filedocumented in this encounter Care Teams Retail And Restaurant Relationship Specialty Start Date End Date Marco Antonio Maldonado MD [address] [place] [phone] PCP - General Internal Medicine 08/21/21 documented as of this encounter
--- OUTSIDE RECORDS SUMMARY | 2024-10-30 10:29 | XMS_ITS | Encounter Summary ---
Author Organization [facility] Address [address] [place] [address] Care Team Providers Care Platform Material Handler Manager Name Role Phone Marco Antonio Maldonado MD Primary Care Provider [phone] Encounter Details Date Type Department Care Team (Late st Contact Info) Description 02/16/2022 Orders Only [facility] XRay [address] [place] [address] Andrew Jonas MD [address] [place] [address] Social History Tobacco Use Types Packs/Day Years [...] Description 11/27/2024 10:00 AM EDT Office Visit [facility] [address] [place] [phone] Parent Trainer: Anju Lopes, Aracely Eduardo NP [address] [place] [address] documented as of this encounter Visit Diagnoses Not on filedocumented in this encounter Care Teams Platform Material Handler Manager Relationship Specialty Start Date End Date Marco Antonio Maldonado MD [address] [place] [address] PCP - General Internal Medicine 08/21/21 documented as of this encounter
--- OUTSIDE RECORDS SUMMARY | 2024-10-30 10:30 | XMS_ITS | Encounter Summary ---
Author Organization [facility] Address [address] [place] [address] Care Team Providers Care Sleeve Bottom Feller Name Role Phone Marco Antonio Maldonado MD Primary Care Provider [phone] Encounter Details Date Type Department Care Team (Late st Contact Info) Description 09/15/2024 Orders Only [facility] Draw Site [address] [place] [address] Marco Antonio Maldonado MD [address] [place] [address] [phone] Elevated prostate specific antigen (PSA) (Primary Dx) [...] Description 11/27/2024 10:00 AM EDT Office Visit [facility] [address] [place] [phone] Agile Coach: Aracely Gonzalez, TESSIE [address] [place] [address] documented as of this encounter Results * Due to [place] state law, this organization might not be sharing negative HIV tests. * (ABNORMAL) PSA, Total and Free (09/23/2024 7:39 AM EDT) PSA 10.10(H) <=4.00 ng/mL 09/23/2024 8:40 AM EDT [facility] Comment: The total PSA value from this assay system is standardized against the WHO standard. ??The test result will be slightly lower (< 3 %) when compared to the equimolar-standardized total PSA(Tabitha Plaquemine). ??Comparison of Serial PSA results should be interpreted with this fact in mind. ??PSA level, regardless of value should not be interpreted as absolute evidence of the presence or absence of disease. This test was performed using Eugenia chemiluminescent method. ??Values obtained by different assay methods cannot be used interchangeably. PSA Free 0.902 ng/mL 09/23/2024 8:40 AM EDT [facility] Comment: This test was performed using Eugenia chemiluminescent method. ??Values obtained by different assay methods cannot be used interchangeably. PSA % Free 9(L) >25 % 09/23/2024 8:40 AM EDT [facility] Comment: A cutoff of [...] MD LAB BLOOD ORDERABLES Final Resu lt [facility] [address] [place] [address], documented in this encounter Visit Diagnoses Diagnosis Elevated prostate specific antigen (PSA)- Primary documented in this encounter Care Teams Sleeve Bottom Feller Relationship Specialty Start Date End Date Marco Antonio Maldonado MD [address] [place] [phone] PCP - General Internal Medicine 08/21/21 documented as of this encounter
--- OUTSIDE RECORDS SUMMARY | 2024-10-30 10:30 | XMS_ITS | Patient Health Record ---
Author Organization [facility] Address [address] [facility] [address] [place] [address] Care Team Providers Care Rum Processing Operator Name Role Phone JAYA MCDOWELL Primary Care Provider Dunia Sanchez Unavailable [phone] Reason For Referral No Information Medications Medication SIG (Take, Route, Frequency, Duration) Notes Start Date End Date Status Sutab 0.225 g-0.188 g-1.479 g as directed Coupon information: BIN: [id number] PCN: [id number] GRP: [id number] ID: [id number] 07/26/2023 Active Plan Of Treatment No Information Insurance Providers Payer Name Payer Address Payer Phone Subscriber Number Group Number Insured Name Patient Relationship to Insured Coverage Start Date Coverage End Date [facility] [address] [place] [address] [id number] RAMAN HYDE Self - patient is the insured
--- OUTSIDE RECORDS SUMMARY | 2024-10-30 10:30 | XMS_ITS | Data Portability ---
Author Organization [facility], , [facility] Address [address] [place] [address] Assessment No assessment recorded. Plan of Treatment Reminders Order Date Submit Date Provider Last Modified By Organization Details Last Modified Time Details Appointments None recorded. Lab PSA, total + free, serum or plasma 2023 024 [facility], [address] [place] [address] [address], [place], [address], 5 13:26:59 Referral urologist referral 2024 025 [facility], [address] [place], [address], 5 04:00:57 Procedures None recorded. Surgeries None recorded. Imaging CT, sinuses, w/o contrast 2024 025 [facility] Referral # 2, [address] [place], [address], 5 00:40:11 Medication Orders azithromyci n 500 mg tablet 2024 025 jtrister [facility]armacy #0008, [address], [place], [address], 5 21:13:24 fluticasone propionate 50 mcg/actuati on nasal spray,suspe nsion [address] [facility]/Pharmacy #0008, [address], [place], [address], 5 16:24:15 activated charcoal 50 gram/240 mL oral suspension 2023 024 [facility] [address] [facility] [address], [place], [address], 4 10:18:23 ondansetron 4 mg disintegrat ing tablet 2023 024 [facility], [address] [facility] [address], [place], [address], 4 10:15:21 Pedialyte oral solution 2023 [facility], [address] [facility] [address], [place], [address], 10:15:23 Patient TargetsNo targets recorded. Patient Instructions Encounter Date Encounter Id Patient Instructions Last Modified By Organization Details Last Modified Time 03/11/2024 [id number] diarrhea: care instructions jtrister Not available 03/19/2024 14:34:43 nausea and vomiting: care instructions jtrister Not available 03/19/2024 14:34:43 food poisoning: care instructions jtrister Not available 03/11/2024 10:22:26 Marco Antonio Bloom, spent {{15 20* 30 [...] medications as prescribed. The patient will contact ms at [phone] if any symptoms or problems should occur.In the case of significant deterioration of the health contact 911. jtrister Not available 03/19/2024 14:34:34 04/08/2024 [id number] upper respirator y infection (cold): care instructions [...] prescribed. The patient will contact me at [phone] if any symptoms or problems should occur.In the case of significant deterioration of the health contact 911. jtrister Not available 04/13/2024 11:01:45 06/09/2024 [id number] prostate biopsy: about this test jtrister Not available 06/09/2024 10:24:22 hernia: care instructions jtrister Not available 06/09/2024 10:24:22 Post-procedures instructions were given. The patient was forewarned about common post-procedures signs, symptoms, and expected course of connective tissue healing. Take medications as prescribed.Follow recommended care instructions and exercises.The patient will contact me at [phone] if any symptoms or problems should occur. [...] medications as prescribed. The patient will contact ms at [phone] if any symptoms or problems should occur.In the case of significant deterioration of the health contact 911. jtrister Not available 07/13/2024 12:05:24 07/06/2024 [id number] Acute Sinusitis: Care Instructions jtrister Not available [...] medications as prescribed. The patient will contact ms at [phone] if any symptoms or problems should occur.In the case of significant deterioration of the health contact 911. jtrister Not available 07/09/2024 11:07:32 09/28/2024 [id number] prostate biopsy: about this test jtrister Not [...] medications as prescribed. The patient will contact ms at [phone] if any symptoms or problems should occur.In the case of significant deterioration of the health contact Elizabeth sal Not available 10/01/2024 15:05:34 Reason for Referral Urologist Referral for Prost ate specific antigen above reference range Referring Physician: Marco Antonio Maldonado, Internal Medicine, Encounter Date: 09/28/2024 Results Created Date Observation Date Name Description Value Unit Range Abnormal Flag Note LastModifiedBy Organization Detail LastModifiedTime 10/23/1910/23/2024 URINA LYSIS , COMPL ETE W/REF RAMON TO CULTU RE color YELLOW yellow normal Not Available [facility] [address] [place] [address], [address], 10/23/2024 11:45:23 10/23/19 25 10/23/2024 URINA LYSIS , COMPL ETE W/REF RAMON TO CULTU RE appearance CLEAR clear normal Not Available [facility] [address] [place] [address], [address], 10/23/2024 11:45:23 10/23/19 25 10/23/2024 URINA LYSIS , COMPL ETE W/REF RAMON TO CULTU RE specific gravity 1.005 1.001- 1.035 normal Not Available [facility] [address], [address], 10/23/2024 11:45:23 10/23/19 25 10/23/2024 URINA LYSIS , COMPL ETE W/REF RAMON TO CULTU RE pH 6.5 5.0-8. 0 normal Not Available [facility] [address] [place] [address], [address], 10/23/2024 11:45:23 10/23/19 25 10/23/2024 URINA LYSIS , COMPL ETE W/REF RAMON TO CULTU RE glucose NEGATI VE negati ve normal Not Available [facility] [address], [address], 10/23/2024 11:45:23 10/23/19 25 10/23/2024 URINA LYSIS , COMPL ETE W/REF RAMON TO CULTU RE bilirubin NEGATI VE negati ve normal Not Available [facility] [address], [place], [address], 10/23/2024 11:45:23 10/23/19 25 10/23/2024 URINA LYSIS , COMPL ETE W/REF RAMON TO CULTU RE ketones NEGATI VE negati ve normal Not Available [facility] [address], [place], [address], 10/23/2024 11:45:23 10/23/19 25 10/23/2024 URINA LYSIS , COMPL ETE W/REF RAMON TO CULTU RE occult blood NEGATI VE negati ve normal Not Available [facility] [address], [place], [address], 10/23/2024 11:45:23 10/23/19 25 10/23/2024 URINA LYSIS , COMPL ETE W/REF RAMON TO CULTU RE protein NEGATI VE negati ve normal Not Available [facility] [address], [place], [address], 10/23/2024 11:45:23 10/23/19 25 10/23/2024 URINA LYSIS , COMPL ETE W/REF RAMON TO CULTU RE nitrite NEGATI VE negati ve normal Not Available [facility] [address], [place], [address], 10/23/2024 11:45:23 10/23/19 25 10/23/2024 URINA LYSIS , COMPL ETE W/REF RAMON TO CULTU RE leukocyte esterase NEGATI VE negati ve normal Not Available [facility] [address], [place], [address], 10/23/2024 11:45:23 10/23/19 25 10/23/2024 URINA LYSIS , COMPL ETE W/REF RAMON TO CULTU RE WBC NONE SEEN /hpf < or = 5 normal Not Available [facility] [address], [place], [address], 10/23/2024 11:45:23 10/23/19 25 10/23/2024 URINA LYSIS , COMPL ETE W/REF RAMON TO CULTU RE RBC NONE SEEN /hpf < or = 2 normal Not Available [facility] [address] [place], [place], [address], 10/23/2024 11:45:23 10/23/19 25 10/23/2024 URINA LYSIS , COMPL ETE W/REF RAMON TO CULTU RE squamous epithelial cells NONE SEEN /hpf < or = 5 normal Not Available [facility] [address], [place], [address], 10/23/2024 11:45:23 10/23/19 25 10/23/2024 URINA LYSIS , COMPL ETE W/REF RAMON TO CULTU RE bacteria NONE SEEN /hpf none seen normal Not Available [facility] [address], [place], [address], 10/23/2024 11:45:23 10/23/19 25 10/23/2024 URINA LYSIS , COMPL ETE W/REF RAMON TO CULTU RE hyaline cast NONE SEEN /lpf none seen normal Not Available [facility] [address] [place], [place], [address], 10/23/2024 11:45:23 10/23/19 25 10/23/2024 URINA LYSIS , COMPL ETE W/REF RAMON TO CULTU RE note This urine was genna zed for the prese nce of WBC, RBC, bacte lucita, casts , and other forme d eleme nts. Only those eleme nts seen were repor coleman. Not Available [facility] [address], [place], [address], 10/23/2024 11:45:23 10/23/19 25 10/23/2024 URINA LYSIS , COMPL ETE W/REF RAMON TO CULTU RE copy(ies) sent to: [facility] [address] [place] [address] Not Available [facility] [address], [place], [address], 10/23/2024 11:45:23 10/23/19 25 10/23/2024 PSA (FREE AND TOTAL ) PSA, total 8.3 NG/mL < or = 4.0 high Not Available [facility] [address], [place], [address], 10/23/2024 11:45:24 10/23/19 25 10/23/2024 PSA (FREE AND TOTAL ) PSA, free 0.5 NG/mL normal Not Available [facility] [address], [place], [address], 10/23/2024 11:45:24 10/23/19 25 10/23/2024 PSA (FREE AND TOTAL ) PSA, % free 6 %_(ca lc) >25 low PSA(n g/mL) Free PSA(% ) Estim ated( x) Proba bilit y of Cance r(as% ) 0-2.5 (*) Appro x. 1 2.6-4 .0(1) 0-27( 2) 24(3) 4.1-1 0(4) 0-10 56 11-15 28 16-20 20 21-25 16 >or =26 8 >10(+ ) N/A >50 Refer ences :(1)C rupa alexis et al.:U rolog y 60: 469-4 74 (2001 ) (2)Ca ana crain et al.:J .Urol 168: 922-9 25 (2001 ) Free PSA(% ) Sensi tivit y(%) Speci ficit y(%) < or = 25 85 19 < or = 30 93 9 (3)Nely crain et al.:J AMA 277: 1452- 1455 (1996 ) (4)Nely crain et al.:J AMA 279: 1542- 1547 (1997 ) (x)Th foreign estim ates vary with age, ethni city, famil y histo ry and NICOL resul ts. (*)Th e diagn ostic usefu lness of % Free PSA has not been estab lishe d in patie nts with total PSA below 2.6 ng/mL (+)In men with PSA above 10 ng/mL , prost ate cance r risk is deter mined by total PSA alone . The Total PSA value from this assay syste m is stand ardiz ed again st the equim olar PSA stand kira. The test resul t will be appro ximat gaby 20% highe r when aubrey red to the WHO-s tanda rdize d Total PSA (Siem ens assay ). Aubrey rison of seria l PSA resul ts shoul d be inter prete d with this fact in mind. PSA was perfo rmed using the Beckm an Coult er Immun oassa y metho d. Value s obtai miladis from diffe rent assay metho ds canno t be used inter barlow eaninay . PSA level s, regar dless of value , shoul d not be inter prete d as absol pyramid lake evide nce of the prese nce or absen ce of disea se. Not Available [facility] [address] [place], [address], 10/23/2024 11:45:24 10/23/19 25 10/23/2024 PSA (FREE AND TOTAL ) copy(ies) sent to: [facility] [address] [facility] [place] [address] Not Available [facility] [address], [place], [place], [address], 10/23/2024 11:45:24 07/27/[address], sinus es, w/o contr [...] bilate ral Devin cells. 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 [...] ID: [id number] 5' 6 198 INTERFACE [facility] [address] [facility] [address], [place], [address], 07/27/2024 00:40:11 07/27/19 25 07/23/2024 imagi ng/di agnos tic resul t No observ ation record ed. [facility] (Ct) [address], [place], [address], 07/27/2024 00:42:03 10/07/19 25 10/06/2024 imagi ng/di agnos tic resul t No observ ation record ed. [facility] [address] [facility], [place], [address], 10/06/2024 14:12:03 10/09/19 25 MRI prost ate W wo contr ast W 3D refor mat STUDY: MRI of the pelvis (prost ate) withou t and with intrav enous contra st. INDICA TION: Elevat ed PSA. R97.20 - I10 - Elevat ed prosta te specif ic antige n (PSA). COMPAR LAILA: Prior abdomi nal MRI 2021, prosta te MRI 09/27/19 TECHNI QUE: Multip aramet otto (T2WI, DWI, DCE) contra st-enh anced MRI of prosta te was perfor med. Standa rd dose weight -based IV Gadoli nium-b ased contra st was admini stered with flush of 20cc saline at 3cc/se c. CLINIC AL INFORM ATION: PSA (trend if availa ble): 10.1 in September 2024, 8.0 in 2024, 5.7 and Novemb er 2022, 4.5 in 2021 Previo us Biopsi es: None availa [...] tion Zone: Lesion #: 1 Locati on: Director Loss Prevention ior right, base (serie s 3, image [...] mm PI-RAD S 4 nodule at the facilities coordinator ior right transi tional zone at the [...] 5' 6 198 SHIELD S ACCESS ION: [id number] ADDITI ONAL INFO: Prosta te specif ic antige n above refere nce range [facility] [address] [facility] 1 [facility] [address], [place], [address], 10/11/2024 11:38:43 10/09/19 25 10/05/2024 MRI, prost ate, w/wo contr ast No observ ation record ed. [facility] [address] [place], [address], 10/11/2024 11:38:39 Result Notes None recorded. Procedures Surgical History Date Name Laterality Status Provider Name and Address Organization Details Recorded Time 06/09/20 24 Intra-articular Joint Aspiration and injection medium size joint completed Marco Antonio Maldonado MD [address] [place], [address], [facility] 06/09/2024 20:52:46 02/19/20 22 IV Infusion completed Marco Antonio Maldonado MD [address] [place], [address], [facility] 03/02/2022 08:02:49 02/19/20 22 OMT upper 7-8 completed Marco Antonio Maldonado MD [address] [place], [address], [facility] 02/18/2022 10:17:22 02/19/20 22 Cefazolin 2 Gms IV completed Marco Antonio Maldonado MD [address] [place], [address], [facility] 02/18/2022 10:05:37 02/18/20 22 IV Infusion completed Marco Antonio Maldonado MD [address] [place], [address], [facility] 02/17/2022 10:00:20 02/18/20 22 Cefazolin 2 Gms IV completed Marco Antonio Maldonado MD [address] [place], [address], [facility] 02/17/2022 10:00:02 02/17/20 22 IV Infusion completed Marco Antonio Maldonado MD [address] [place], [address], [facility] 02/17/2022 08:54:04 02/17/20 22 Cefazolin 2 Gms IV completed Marco Antonio Maldonado MD [address] [place], [address], [facility] 02/17/2022 08:53:36 03/15/20 21 Intramuscular Injection completed Karine Main [facility], 03/15/2021 13:55:15 12/02/19 21 Dressing change completed Marco Antonio Maldonado MD [address] [place], [address], [facility] 12/01/2020 18:54:01 11/26/19 21 Dressing change completed Marco Antonio Maldonado MD [address] [place], [address], [facility], 11/27/2020 13:02:33 11/25/19 21 Ingrowing toenail (removal of the nail matrix) completed Marco Antonio Maldonado MD [address] [place], [address], [facility], 11/26/2020 13:27:18 08/03/19 21 LIGAMENTAL SHOULDER R completed Marco Antonio Maldonado MD [address] [place], [address], [facility], 09/27/2020 13:06:51 12/03/19 19 ECG completed Chen Fernandez [facility], 12/02/2018 16:36:08 Imaging Results Imaging Date Name Status LastModified by Organiz ation Details LastModified Time 07/27/2024 CT, sinuses, w/o contrast active INTERFACE [place] [address] [employer] [address] [employer] [facility] [address], [place], [address], 07/27/2024 00:40:11 07/23/2024 imaging/diagn ostic result active [facility] (Ct) [address] [place], [address], 07/27/2024 00:42:03 10/06/2024 imaging/diagn ostic result active [facility] [address] [facility], [place], [address], 10/06/2024 14:12:03 10/08/2024 MRI prostate W wo contrast W 3D reformat completed jtrkosta [address] [employer] [address], [place], [address], 10/11/2024 11:38:43 10/05/2024 MRI, prostate, w/wo contrast completed jtrister [facility] [address] [place], [address], 10/11/2024 11:38:39 Procedure Notes None recorded. Medical Equipment None Reported. Allergies Allergen ID Allergen Name Allergen Category Reaction Reaction Severity Criticality Documentation Date Start Date Code Code System Note Provider Name and Address Organization Details Recorded Time 45524 iodine medicatio n Not available Not available Not available 12/02/2018 5933 RxNorm Marco Antonio Maldonado MD [address] [place], [address], [facility], 9 16:29:26 30006 Substance with sulfonami de structure and antibacte rial mechanism of action (substanc e) medicatio n Not available Not available Not available 12/02/2018 38248 8003 SNOMED YOAN pruitt, [facility], 9 16:43:26 Medications Name Sig Start Date Stop Date Status Note LastModified by Organization Details LastModified Time Prescript ion - New 10/09 completed sent RX to [facility] Not Available Not Available Not Available Prescript ion - Change active Not Available [...] cm 87 /min 97.6 [degF] 29.1 kg/m2 64649.1 8 g 97 % 97 % 130 mm[Hg] 70 mm[Hg] Chen Fernandez [facility], 5 15:37:15 Social History Question Answer Notes LastModified by Organizat ion Details LastModified Time Tobacco Smoking Status Former Smoker Not Available [facility] 04/08/2020 03:10:44 What Is Your Level Of Alcohol Consumption? None [id number] Information not available 04/08/2020 Have You Been To An Area Known To Be High Risk For COVID-19? No Information not available 11/25/2020 HAVE YOU HAD A RECENT FEVER OF >100.4 F No [email or web address] Information not available 11/25/2020 DO YOU HAVE SHORTNESS OF BREATH OR TROUBLE BREATHING No [email or web address] Information not available 11/25/2020 DO YOU HAVE DRY COUGH, RUNNY NOSE OR SORE THROAT No [email or web address] Information not available 11/25/2020 DO YOU HAVE CHILLS? No Information not available 11/25/2020 DO YOU HAVE MUSCLE PAIN, BODY ACHES? No [email or web address] Information not available 11/25/2020 DO YOU HAVE HEADACHE? No [email or web address] Information not available 11/25/2020 HAVE YOU RECENTLY LOST SENSE OF SMELL OR TASTE No [email or web address] Information not available 11/25/2020 DO YOU HAVE ONSET OF NAUSEA OR VOMITING? No [email or web address] Information not available 11/25/2020 HAVE YOU BEEN IN CONTACT WITH SOMEONE THAT TESTED POSITIVE FOR COVID19? No Information not available 11/25/2020 ARE YOU AWAITING COVID19 TEST RESULTS? No [email or web address] Information not available 11/25/2020 HAVE YOU TRAVELED OUTSIDE THE STATE OR COUNTRY IN THE PAST WEEKS? No [email or web address] Information not available 11/25/2020 Marital Status jtrister Informatio n not available 12/02/2018 What Was The Date Of Your Most Recent Tobacco Screening? 01/01/2019 [id number] Information not available 04/08/2020 Sex: Male Functional Status None recorded. Mental Status None recorded. Family History Nothing Reported. Medical History Condition Response Coronary Artery Disease N Gout N Metabolic Syndrome N Hyperthyroidism N Hyperipidemia Y COPD N Depression N Pneumonia N TIA N Diabetes Mellutus type 1 N Headache (Migraines) N Knee OA N Alcoholism N Obesity N Cancer N Feet OA N Hepatitis alcoholic N Hip OA N Rheumatoid Arthritis N Atrial fibrillation N Fibromyalgia N Inflammatory bowel disease N Skin Infection N Heart Conditions N Anxiety N Hepatitis A N Gluten sensitivity N Headache (Tension) N Acne N Hypertriglyceridemia N Venous insufficiency N Radiculopathy N Dyspepsia N Bleeding Disorder N CHF N Joints replacement N Ankle OA N Fingers OA N BPH Y Urinary Tract Infection N CVA N Asthma Y Neck (Cervical) OA N Peripheral Vascular Disease N Sleep Disorder N GERD/Reflux N Neuropathy N Pulmonary Embolism N Bipolar disorder N Lung Disease N Hypothyroidism N Myofascial pain syndrome N TMJ OA N Tobacco dependence N Food sensitivity and intollerance N Valvular heart disease N Cholecystitis N Diabetes Mellitus Type 2 N Shoulder OA N Substance dependence N Skin disorder N Schizophrenia N DVT/PE N Somatic dysfunction N Back pain (lumbar OA) N Lyme disease N Hepatitis C N Anemia N Anemia B-12 defficiency N Back pain (thoracic OA) N Heart Attack (NC) N Seizures/Epilepsy N Wrist OA N Somatization N Carpal tunnel Syndrome N Diverticulitis N Hepatitis B N Elbow joint pain N Peptic Ulcer disease N Hypertension N Osteoporosis N Past Encounters Encounter ID Performer Location Encounter Start Date Encounter Closed Date Diagnosis/Indication Diagnosis SNOMED-CT Code Diagnosis ICD10 Code Diagnosis Note [id number] Marco Antonio Maldonado MD [address] [address] 12/02/2018 15:56:35 12/02/2018 17:14:20 Chronic anxiety 742541339 F41.9 Mixed hyperlipidemia 267 835850 E78.2 2 weeks ago pt had a blood work; I do not have results at the time of this visit Male hypogonadism 663819 06 E29.1 Electrocar diogram abnormal 146222555 R94.31 [id number] Marco Antonio Maldonado MD [address] [address] 01/01/2019 15:14:17 01/01/2019 16:19:34 Chronic prostatitis 95049977 N41.1 Mixed hyperlipidemia 267 156472 E78.2 2 weeks ago pt had a blood work; I do not have results at the time of this visit [id number] Marco Antonio Maldonado MD [address] [address] 02/06/2019 13:50:47 02/06/2019 15:21:08 Benign prostatic hyperplasia 615098053 N40.0 Chronic dermatitis 67574 007 L30.9 Male hypogonadism 496852 06 E29.1 Mixed hyperlipidemia 267 539142 E78.2 2 weeks ago pt had a blood work; I do not have results at the time of this visit [id number] Marco Antonio Maldonado MD [address] [address] 04/15/2019 12:42:09 04/15/2019 13:40:57 Chronic prostatitis 55232400 N41.1 Mixed hyperlipidemia 267 461359 E78.2 Depressive disorder 3548 9007 F32.9 [id number] Marco Antonio Maldonado MD [address] [address] 08/20/2019 12:57:26 08/20/2019 13:47:08 Benign prostatic hyperplasia 291436790 N40.0 Mixed hyperlipidemia 267 740438 E78.2 Hyperglycemia 02084504 R 73.9 Depressive disorder 3548 9007 F32.9 Pain in left thumb 76741 35077 495156 M79.645 [id number] Marco Antonio Maldonado MD [facility] [address] [place] [address] 10/14/2019 14:28:27 10/20/2019 08:30:53 Dermatophytosis 24388585 B35.9 Benign ess ential hypertension 9954418 I10 Seasonal a llergic rhinitis 329197167 J30.2 Benign pro static hyperplasia 052938276 N40.0 [id number] Marco Antonio Maldonado MD [address] [address] 01/28/2020 15:29:11 02/03/2020 09:57:17 Benign prostatic hyperplasia 255778444 N40.0 Mixed hyperlipidemia 267 626004 E78.2 Persistent insomnia 1919 10942 G47.09 Depressive disorder 3548 9007 F32.9 Hyperglycemia 01279390 R 73.9 Hyperlipidemia 25519288 E78.5 Chronic dermatitis 30170 007 L30.9 Dyspnea 190191712 R06.00 [id number] Marco Antonio Maldonado MD [address] [address] 04/20/2020 10:22:17 04/20/2020 10:53:49 Suspected COVID-19 514937736 Z03.89 Chronic cough 49525157 R 05 Shoulder joint pain 2679 79938 M25.519 Prostate s pecific antigen above reference range 834304137 R97.20 Mixed hyperlipidemia 267 995395 E78.2 [id number] Marco Antonio Maldonado MD [address] [address] 06/02/2020 16:52:54 06/26/2020 15:25:43 Strain of abdominal muscle 065864128 S39.011A [id number] Marco Antonio Maldonado MD [address] [address] 07/18/2020 10:56:56 07/27/2020 12:04:04 Ingrowing great toenail 883873289 L60.0 Prostate s pecific antigen above reference range 086962964 R97.20 [id number] MD EVELYN Wang [address] [place] [address] 08/03/2020 14:27:43 08/03/2020 15:16:31 Persistent insomnia 476060593 G47.09 Chronic prostatitis 1990 5009 N41.1 Ingrowing great toenail 532379903 L60.0 Umbilical hernia 1254612 07 K42.9 Dermatophytosis 22090932 B35.9 Mixed hyperlipidemia 267 951693 E78.2 Chronic dermatitis 59798 007 L30.9 Enthesopat hy of shoulder region 862232442 M77.9 [id number] MD EVELYN Wang [address] [place] [address] 11/24/2020 14:22:07 11/24/2020 15:06:28 Ingrowing nail of toe of right foot 1811801821 [id number] L60.0 [id number] MD EVELYN Wang [address] [place] [address] 29243-230 5 11/25/2020 12:07:16 11/25/2020 13:02:34 Ingrowing great toenail [id number] L60.0 [id number] EDMOND DODSON [address] [place] [address] 62956-609 5 11/28/2020 11:35:20 11/28/2020 12:04:09 Change of dressing 82166701 Z48.00 Stable. No acute infection. F/u on for next dressing change. [id number] MD EVELYN Wang [address] [place] [address] 80091-577 5 12/01/2020 13:57:51 12/01/2020 14:18:38 Ingrowing great toenail [id number] L60.0 [id number] MD EVELYN Wang [address] [place] [address] 58024-131 5 03/15/2021 13:54:44 03/15/2021 14:16:01 Needs influenza immunization 936964793 Z28.3 Chronic dermatitis 96749 007 L30.9 Persistent insomnia 1919 39249 G47.09 Asthma 906678873 J45.90 9 [id number] Marco Antonio Maldonado MD [facility] [address] [place] [address] 06243-992 5 08/11/2021 15:51:52 08/11/2021 16:31:29 Hemorrhoids 28749786 K64.9 Dermatophytosis 80990276 B35.9 Prostate s pecific antigen above reference range 925840813 R97.20 [id number] Marco Antonio Maldonado MD [facility] [address] [place] [address] 49631-706 5 12/08/2021 09:54:29 12/08/2021 11:00:32 Asthma 934823898 J45.909 Feeling stressed 9730781 06 Z73.3 [id number] Marco Antonio Maldonado MD [address] 14575-639 5 02/15/2022 10:38:32 02/15/2022 11:04:02 Irreducible umbilical hernia 476632013 K42.0 [id number] Marco Antonio Maldonado MD [address] 73960-682 5 02/16/2022 12:23:30 02/16/2022 14:16:45 Cellulitis of abdominal wall 41244799 L03.311 [id number] Marco Antonio [facility]ado [facility] 09944-426 5 02/17/2022 09:56:34 02/19/2022 13:13:41 Cellulitis of abdominal wall 71826438 L03.311 Umbilical hernia 6979800 07 K42.9 [id number] Marco Antonio [facility]ado [facility] [address]-543 5 02/18/2022 09:42:01 02/20/2022 08:28:38 Cellulitis of abdominal wall 10971900 L03.311 Lesion of liver 12244056 0 K76.9 Prostate s pecific antigen above reference range 772175988 R97.20 Somatic dy sfunction of cranium 215503358 M99.00 Cervical s omatic dysfunction 742337254 M99.01 Somatic dy sfunction of rib 272190323 M99.08 Somatic dy sfunction of thoracic region 218744691 M99.02 Somatic dy sfunction of lumbar region 623639760 M99.03 Somatic dy sfunction of ligament 727469625 M99.09 Somatic dy sfunction of sacral spine 379667327 M99.04 Somatic dy sfunction of pelvic region 121009259 M99.05 [id number] Marco Antonio Maldonado MD [address] 57491-361 5 05/15/2022 09:17:08 05/15/2022 09:37:50 COVID-19 271408611 U07.1 External hemorrhoids 239 34884 K64.4 [id number] Marco Antonio Maldonado MD [address] 14354-548 5 09/25/2022 10:49:20 09/25/2022 12:10:47 Asthmatic bronchitis 417141731 J45.909 Asthma 446230957 J45.90 9 Mixed hyperlipidemia 267 627734 E78.2 Prostate s pecific antigen above reference range 823459605 R97.20 [id number] Marco Antonio Maldonado MD [address] 79684-464 5 05/10/2023 09:37:37 05/10/2023 10:40:55 Hidradenitis suppurativa 22510371 L73.2 Benign pro static hyperplasia 739939468 N40.0 Screening for malignant neoplasm of colon 458513919 Z12.11 Screening for malignant neoplasm of prostate 089480183 Z12.5 Mixed hyperlipidemia 267 162467 E78.2 Medication review done by doctor 742284272 Z76.89 The patient underwent a clinical examinatio n, and the medication list was reviewed and reconciled . The pharmacolo gical management was modified, and follow-up visits and diagnostic tests were scheduled. The patient is currently stable. External hemorrhoids 239 62314 K64.4 Insomnia 041598023 G47.0 9 [id number] Marco Antonio Maldonado MD [facility] [address] [place] [address] 39988-721 5 06/12/2023 09:25:56 06/12/2023 10:10:29 Diverticulitis of colon 686809508 K57.32 Benign pro static hyperplasia 225604406 N40.0 External hemorrhoids 239 83684 K64.4 Mild inter mittent asthma 355045859 J45.20 [id number] Marco Antonio Maldonado MD [address] 70673-846 5 10/10/2023 13:07:01 10/10/2023 13:37:07 Dermatophytosis 28217146 B35.9 Mixed hyperlipidemia 267 715928 E78.2 Erectile dysfunction 860 947364 F52.21 Persistent insomnia 1919 61560 G47.09 [id number] Marco Antonio Maldonado MD [address] 57013-865 5 03/11/2024 10:20:33 03/11/2024 11:25:34 Food poisoning 87217120 T62.91XA Congee:Man y illnesses require good dietary management . Please follow the instructio ns for Congee preparatio n.Congee are Kisw[place]ili dietary recipes that have been used for thousands of years. Use these recipes during the acute phase of the disease, and when your condition improves ( usually 2-3 days), then gradually return to your regular diet.Instr uction:Batch Plant Supervisor k the Rice (regular, white),Car rot for [...] medication s prescribed by a physician. Nausea 715851588 R11.0 Diarrhea 05970137 R19.7 [id number] Marco Antonio Maldonado [facility] [address]257-289 5 04/08/2024 10:03:56 04/08/2024 10:24:36 Acute upper respiratory infection 01030239 J06.9 Home Covid-19 test is NEGATIVE; oral hydration , ascorbic acid [id number] Marco Antonio Maldonado MD [address] 94816-061 5 06/09/2024 09:30:35 06/09/2024 11:00:34 Pain of left ankle joint 2329871405 1247937 M25.572 medium size joint was performed - left subtalar joint Hernia of anterior abdominal wall 848276141 K43.9 ventral and umbilical Persistent insomnia 1919 11542 G47.09 Patient is stable at present time on current management .Will continue current therapy. Feeling stressed 9621061 06 Z73.3 counseling Prostate s pecific antigen above reference range 893559023 R97.20 [id number] Marco Antonio Maldonado MD [address] 10323-649 5 07/06/2024 16:20:18 07/06/2024 17:15:48 Acute maxillary sinusitis 07819951 J01.00 [id number] Marco Antonio Maldonado MD [address] 05089-526 5 09/28/2024 15:17:52 09/28/2024 16:21:33 Benign prostatic hyperplasia 365585001 N40.1 Prostate s pecific antigen above reference range 703035956 R97.20 Health Concerns Section Related Observation LastModified by Organization Detai ls LastModified Time None Recorded Concern Status LastModified by Organization Details LastModified Time None Recorded Advance Directives Directive None Recorded Payers Encounter Date Sequence Insurance Name Policy Number Policy Rivera Covered Member ID Rivera Member ID Guarantor Name 03/11/2024 1 [place] [facility] [id number] Akbar Radford [id number] Akbar Radford 04/08/2024 1 [place] [facility] ([facility] [id number] Akbar Radford [id number] Akbar Radford 06/09/2024 1 [place] [facility] ([facility] [id number] Akbar Radford [id number] Akbar Radford 07/06/2024 1 [place] [facility] ([facility] [id number] Akbar Radford [id number] Akbar Radfodr 09/28/2024 1 [facility]: [facility] ([facility] [id number] Akbar Radford [id number] Akbar Radford Notes Date Note Type Note [...] Verbal consent obtained today. Originating call site: [facility] Distant Site: Patient's home Marco Antonio Maldonado MD [address] [place], [address], [facility], 03/19/2024 14:34:47 04/08/2024 text/html Akbar has been [...] Verbal consent obtained today. Originating call site: [facility] Distant Site: Patient's home Marco Antonio Maldonado MD [address] [place], [address], [facility], 04/13/2024 11:01:49 06/09/2024 text/html Akbar reports experiencing [...] negative for malignancy. Marco Antonio Maldonado MD [address] [place] [address], [phone], [facility] 07/13/2024 12:05:47 07/06/2024 text/html Patient reports acute [...] Verbal consent obtained today. Originating call site: [facility] Distant Site: Patient's home Marco Antonio Maldonado MD [address] [place], [address], [facility] 07/09/2024 11:07:37 09/28/2024 text/html Mr. Radford, a 64-year-old male, presents with elevated PSA levels (>10) over the past 6 months and symptoms of BPH, including occasional nocturia, dysuria, and bilateral post-intercourse lower abdominal pain . An MRI of the prostate is scheduled in a few days, and a prostate biopsy has been advised by the urology DELIVERY CLERK. Follow-up with urology is planned for prostate biopsy in November for further evaluation and management. Akbar is unhappy with this delayed plan for biopsy and asked forme to arrange second opinion Marco Antonio Maldonado MD [address] [place] [address], [phone], [facility] 10/01/2024 15:05:37
--- OUTSIDE RECORDS SUMMARY | 2024-10-30 10:30 | XMS_ITS | Encounter Summary ---
Author Organization [facility] Address [address] [place] [address] Care Team Providers Care Glass Selector Name Role Phone Marco Antonio Maldonado MD Primary Care Provider [phone] Encounter Details Date Type Department Care Team (Late st Contact Info) Description 08/28/2023 Orders Only [facility] Surgery [address] [place] [address] [phone] Taran Andino MD [address] [place] [address] [phone] Social History Tobacco Use Types Packs/Day Years [...] Description 11/27/2024 10:00 AM EDT Office Visit [facility] [address] [place] [address] 28965 Manager Study: Anju Lopes, Aracely Eduardo NP [address] [place] [address] 14224 documented as of this encounter Visit Diagnoses Not on filedocumented in this encounter Care Teams Glass Selector Relationship Specialty Start Date End Date Marco Antonio Maldonado MD [address] [place] [address] [phone] PCP - General Internal Medicine 08/21/21 documented as of this encounter
--- OUTSIDE RECORDS SUMMARY | 2024-10-30 10:30 | XMS_ITS | Continuity of Care Document ---
Author Organization [facility] Address [address] [place] [address] 270[address] Care Team Providers Care Junior Underwriter Name Role Phone Mark Maldonado MD Primary Care Provider [phone] Encounters Date Type Department Care Team Description 02/18/2020 Telephone [facility] Podiatry [address] [place] [phone] Gabino Bradshaw DPM FYI 02/16/2020 3:30 PM EDT Office Visit [facility] Pod[facility] [address] [place] [phone] Gabino Bradshaw DPM Pronation of both feet (Primary Dx) 02/09/2020 Travel 02/09/2020 9:50 AM EDT Office Visit [facility] Pod[facility] [address] [place] [phone] Gabino Bradshaw DPM Ingrowing toenail (Primary Dx) 02/08/2020 Telephone [facility] [address] [place] [phone] Gabino Bradshaw DPM Patient Questions 01/14/2020 2:50 PM EDT Office Visit [facility] [address] [place] [phone] Gabino Bradshaw DPM Ingrowing toenail (Primary Dx) 01/13/2020 Travel 06/02/2019 9:10 AM EST Consult (Initial) [facility] [address] [place] [phone] Gabino Bradshaw, DPDelmar Ingrowing toenail (Primary Dx); [...] ve Social History Smoking Status as of 10/30/2024 Tobacco Use Types Packs/Day Years Used Date [...] Pronation of both feet 02/16/2020 Care Teams Junior Underwriter Relationship Specialty Start Date End Date Mark Maldonado MD [address] [place] [address] 53018 PCP - General Internal Medicine 06/01/19
--- OUTSIDE RECORDS SUMMARY | 2024-10-30 10:30 | XMS_ITS | Encounter Summary ---
Author Organization [facility] Address [address] [place] [address] Care Team Providers Care Director Of Managed Services Name Role Phone Marco Antonio Maldonado MD Primary Care Provider [phone] Encounter Details Date Type Department Care Team (Late st Contact Info) Description 10/01/2024 Community Orders [facility] EpicCare Link [address] [place] [address] Marco Antonio Maldonado MD [address] [place] [address] [phone] Social History Tobacco Use Types Packs/Day Years [...] Description 11/27/2024 10:00 AM EDT Office Visit [facility] [address] [place] [address] 65[address] Sports Therapist: Anju Lopes, Aracely Eduardo NP [address] [place] [address] 30918 documented as of this encounter Visit Diagnoses Not on filedocumented in this encounter Care Teams Director Of Managed Services Relationship Specialty Start Date End Date Marco Antonio Maldonado MD [address] [place] [address] 40353 PCP - General Internal Medicine 08/21/21 documented as of this encounter
--- OUTSIDE RECORDS SUMMARY | 2024-10-30 10:30 | XMS_ITS | Encounter Summary ---
Author Organization [facility] Address [address] [place] [address] Care Team Providers Care Safekeeping Clerk Name Role Phone Marco Antonio Maldonado MD Primary Care Provider [phone] Encounter Details Date Type Department Care Team (Late st Contact Info) Description 10/09/2024 Community Orders [facility] EpicCare Link [address] [place] [address] Marco Antonio Maldonado MD [address] [place] [address] [phone] Social History Tobacco Use Types Packs/Day Years [...] Description 11/27/2024 10:00 AM EDT Office Visit [facility] [address] [place] [address] 48[address] Section Leader Screen Printing: Anju Lopes, Aracely Eduardo NP [address] [place] [address] 52441 documented as of this encounter Visit Diagnoses Not on filedocumented in this encounter Care Teams Safekeeping Clerk Relationship Specialty Start Date End Date Marco Antonio Maldonado MD [address] [place] [address] 83239 PCP - General Internal Medicine 08/21/21 documented as of this encounter
--- OUTSIDE RECORDS SUMMARY | 2024-10-30 10:30 | XMS_ITS | Encounter Summary ---
Author Organization [facility] Address [address] [place] [address] Care Team Providers Care Manager Business Continuity Name Role Phone Marco Antonio Maldonado MD Primary Care Provider [phone] Encounter Details Date Type Department Care Team (Late st Contact Info) Description 04/20/2020 Orders Only [facility] [address] [place] [address] Marco Antonio Maldonado MD [address] [place] [phone] Exposure to SARS-associated coronavirus (Primary Dx) Social [...] [facility] [address] [place] [address] Promotional Demonstrator: Anju Lopes, Aracely Eduardo NP [address] [place] [address] documented as of this encounter Results * Due to [place] state law, this organization might not be sharing negative HIV tests. * COVID-19 PCR, TELESALES SUPERVISOR/OP/[employer]iva (04/21/2020 9:24 AM EDT) SARS CoV 2 RNA, RT PCR Not Detected Not Detected 04/21/2020 3:22 PM EDT [facility] Comment:A Not Detected [...] AM EDT 04/21/2020 9:51 AM EDT Narrative [facility] - 04/21/2020 3:22 PM EDT These tests were developed, validated, and their performance characteristics determined by the [facility] at [facility] under CLIA [id number]. They have not been cleared or approved by the U.S. Food and Drug Administration (FDA). FDA Policy for Diagnostic Tests for Coronavirus Disease-2019 during the Public Health Emergency issued September 07, 2019, is followed. us Marco Antonio Maldonado MD LAB BODY FLUIDS AND STOOLS TIERRA SHINE Final Result [facility] [address] [place] [address], documented in this encounter Visit Diagnoses Diagnosis Exposure to SARS-associated coronavirus- Primary documented in this encounter Additional Health Concerns Infection Onset Date Last Indicated Resolved Time COVID-19 - Suspected infection 04/20/2020 04/21/2020 04/21/2020 3:22 PM EDT documented as of this encounter Care Teams Manager Business Continuity Relationship Specialty Start Date End Date Marco Antonio Maldonado MD [address] [place] [address] PCP - General Internal Medicine 08/21/21 documented as of this encounter
--- OUTSIDE RECORDS SUMMARY | 2024-10-30 10:30 | XMS_ITS | Encounter Summary ---
Author Organization [facility] Address [address] [place] [address] Care Team Providers Care Boat Outfitting Supervisor Name Role Phone Marco Antonio Maldonado MD Primary Care Provider [phone] Encounter Details Date Type Department Care Team (Late st Contact Info) Description 10/12/2024 Community Orders [facility] EpicCare Link [address] [place] [address] Marco Antonio Maldonado MD [address] [place] [address] [phone] Social History Tobacco Use Types Packs/Day Years [...] Description 11/27/2024 10:00 AM EDT Office Visit [facility] [address] [place] [address] Public Relations Account Supervisor: Anju Lopes, Aracely Eduardo NP [address] [place] [address] 79735 documented as of this encounter Visit Diagnoses Not on filedocumented in this encounter Care Teams Boat Outfitting Supervisor Relationship Specialty Start Date End Date Marco Antonio Maldonado MD [address] [place] [address] [phone] PCP - General Internal Medicine 08/21/21 documented as of this encounter
--- OUTSIDE RECORDS SUMMARY | 2024-10-30 10:30 | XMS_ITS | Referral Summary ---
Author Organization [facility] Address [address] [place] [address] Care Team Providers Care Vat Cleaner Name Role Phone Marco Antonio Maldonado MD Primary Care Provider Encounters Date Type Department Care Team Description 10/12/2024 Community Orders [facility] Retina Implant Link [address] [place] [address] Marco Antonio Maldonado MD 10/09/2024 Community Orders [facility] Retina Implant Link [address] [place] [address] Marco Antonio Maldonado MD 10/06/2024 1:10 PM EDT - 10/06/2024 11:59 PM EDT Hospital Encounter [facility] [address] [place] [address] Left testicular pain Discharge Disposition: Home or Self Care (01) 10/05/2024 Orders Only [facility] [address] [address] Marco Antonio Maldonado MD Elevated prostate specific antigen (PSA) 10/01/2024 Community Orders [facility] [address] [place] [address] Marco Antonio Maldonado MD 09/30/2024 Orders Only [facility] [address] [place] [address] Contracts Attorney: Aracely Gonzalez NP 09/28/2024 Telephone [facility] [address] [address] Contracts Attorney: Aracely Gonzalez NP 09/28/2024 8:00 AM EDT Office Visit [facility] [address] [place] [address] Contracts Attorney: Aracely Gonzalez NP Abnormal prostate specific antigen (PSA) (Primary Dx); Left testicular pain 09/15/2024 Orders Only [facility] Lab Draw Site [address] [place] [address] Marco Antonio Maldonado MD Elevated prostate specific antigen (PSA) (Primary Dx) 09/15/2024 Orders Only [facility] [place] [address] Contracts Attorney: Anju Queen ProviderRohit MD 09/11/2024 Telephone [facility] [place] [place] [address] Contracts Attorney: Murtaza López LPN 09/01/2024 Transcribe Orders [facility] Physician Referral Services [address] [id number] Marco Antonio Maldonado MD Elevated prostate specific antigen (PSA) (Primary Dx) from Last 3 Months Allergies Active Allergy [...] Description 11/27/2024 10:00 AM EDT Office Visit [facility] [address] [place] [address] Contracts Attorney: Anju Lopes, Aracely Eduardo NP [address] [place] [address] Procedures * Due to [place] state law, this organization might not be [...] - SCANNED Routine 09/15/2024 8:23 AM EDT COLONOSCOPY 10/18/2020 from Last 3 Months or Most Recently Relevant to Health Maintenance Results * Due to [place] state law, this organization might not be [...] obtain the completed interpretation. ? Workstation ID: [id number] Narrative 10/06/2024 2:08 PM EDT EXAMINATION: Scrotal [...] with a septation noted Resulting Agency Comment [id number] Procedure Note Brian West MD - 10/06/2024 [...] possible to obtain thecompleted interpretation. Workstation ID: [id number] us Aracely Lopes NP IMG US PROCEDURES [...] obtain the completed interpretation. ? Workstation ID: [id number] Narrative 10/08/2024 1:52 PM EDT STUDY: MRI [...] fat-containing left inguinal hernia. Resulting Agency Comment [id number] Procedure Note Donaldo Bliss MD - 10/08/2024 [...] possible to obtain thecompleted interpretation. Workstation ID: [id number] us Marco Antonio Maldonado MD IMG MRI PROCEDURES Final Result * Guzman Top, Urine (09/28/2024 4:55 PM EDT) Pathologist [facility] Extra Tube Hold for add-ons. 09/28/2024 9:05 PM EDT [facility] Comment:Auto resulted. Urine Urine specimen collection, clean catch / Unknown Non-Blood Collection / Unknown 09/28/2024 4:55 PM EDT 09/28/2024 5:54 PM EDT us Aracely Lopes SPIN INSTRUCTOR LAB URINE ORDERABLES F inal Result [facility] [address] [place] [address], [place] * (ABNORMAL) Urinalysis W/Reflex to Microscopic & Culture (09/28/2024 4:55 PM EDT) Color, Urine Light Yellow Colorless, Light Yellow, Yellow, Dark Yellow 09/28/2024 6:29 PM EDT [facility] Clarity, Urine Clear Clear 09/28/2024 6:29 PM EDT [facility] Specific [place], Urine 1.005 1.005 - 1.030 09/28/2024 6:29 PM EDT [facility] pH, Urine 6.0 4.6 - 8.0 09/28/2024 6:29 PM EDT [facility] Protein, Urine Negative Negative 09/28/2024 6:29 PM EDT [facility] Glucose, Urine Negative Negative 09/28/2024 6:29 PM EDT [facility] Ketones, Urine Negative Negative 09/28/2024 6:29 PM EDT [facility] Bilirubin, Urine Negative Negative 09/28/2024 6:29 PM EDT [facility] Blood, Urine Negative Negative 09/28/2024 6:29 PM EDT [facility] Nitrite, Urine Negative Negative 09/28/2024 6:29 PM EDT [facility] Urobilinogen, Urine Normal Normal 09/28/2024 6:29 PM EDT [facility] Leukocyte Esterase, Urine Trace(A) Negative 09/28/2024 6:29 PM EDT [facility] WBC, Urine 4(H) 0 - 2 /HPF 09/28/2024 6:29 PM EDT [facility] RBC, Urine <1 0 - 2 /HPF 09/28/2024 6:29 PM EDT [facility] Hyaline Casts, Urine 0 0 - 2 /LPF 09/28/2024 6:29 PM EDT [facility] Bacteria, Urine None None /HPF /HPF 09/28/2024 6:29 PM EDT [facility] Urine Urine specimen collection, clean catch / Unknown Non-Blood Collection / Unknown 09/28/2024 4:55 PM EDT 09/28/2024 5:55 PM EDT us Aracely Lopes SPIN INSTRUCTOR LAB URINE ORDERABLES F inal Result [facility] [address] [place] [address], * (ABNORMAL) Urine Culture, Routine (09/28/2024 4:55 PM EDT) Culture Results Updated 09/30/2024 3:40 PM EDT [facility] Culture Escherichia coli(A) 09/30/2024 3:40 PM EDT [facility] Comment:10,000-49,000 CFU/mL of Escherichia coli Urine Urine specimen collection, clean catch / Unknown Non-Blood Collection / Unknown 09/28/2024 4:55 PM EDT 09/28/2024 6:19 PM EDT [facility] 09/30/2024 3:40 PM EDT [facility] Received Date: MICRO NUMBER: [id number] SPECIMEN QUALITY: Adequate SOURCE: URINE CLEAN CATCH [...] MICROBIOLOGY - GEN ERAL ORDERABLES Final Result Performing Organization Address City/[facility]/ZIP Co de Phone Number CINTHYA MOTT [address] [facility] 3rd Floor, [address] [place] [address], [place] [phone] [facility] [address] Floor, [place] [address], [place] [phone] * (ABNORMAL) PSA, Total and Free (09/23/2024 7:39 AM EDT) PSA 10.10(H) <=4.00 ng/mL 09/23/2024 8:40 AM EDT [facility] Comment: The total PSA value from this assay system is standardized against the WHO standard. ??The test result will be slightly lower (< 3 %) when compared to the equimolar-standardized total PSA(Tabitha [place]). ??Comparison of Serial PSA results should be interpreted with this fact in mind. ??PSA level, regardless of value should not be interpreted as absolute evidence of the presence or absence of disease. This test was performed using Eugenia chemiluminescent method. ??Values obtained by different assay methods cannot be used interchangeably. PSA Free 0.902 ng/mL 09/23/2024 8:40 AM EDT [facility] Comment: This test was performed using Eugenia chemiluminescent method. ??Values obtained by different assay methods cannot be used interchangeably. PSA % Free 9(L) >25 % 09/23/2024 8:40 AM EDT [facility] Comment: A cutoff of [...] 7:39 AM EDT 09/23/2024 8:01 AM EDT Marco Antonio Maldonado MD LAB BLOOD ORDERABLES Final Resu lt [facility] [address] [place] [address], [place] * LAB - SCANNED (09/15/2024 8:23 AM EDT) us Unknown Provider LAB HISTORICAL RESULTS Final Result * COLONOSCOPY (10/18/2020) Narrative Procedure Note Ronal Gaffney MD - 10/18/2020 11:16 AM EDT [facility] Patient Name: Akbar Radford Procedure Date: 10/18/2020 11:16 AM Date of : 1960 Age: 60 Room: [place] [address] Gender: Male Note Status: Finalized Attending MD: [...] Most Recently Relevant to Health Maintenance Insurance [facility] HMO/POS Advance Directives * Full Code (Latest Code Status on File) Date Activated Date Inactivated Comments 10/02/2023 7:35 AM 10/02/2023 1:19 PM Care Teams Vat Cleaner Relationship Specialty Start Date End Date Marco Antonio Maldonado MD [address] [place] [address] PCP - General Internal Medicine 08/21/21
--- OUTSIDE RECORDS SUMMARY | 2024-10-30 10:30 | XMS_ITS | Patient Health Record ---
Author Organization [facility] Address [address] [place], [place] [address] Care Team Providers Care Corn Shucker Name Role Phone Erica RUSSO, Marco Antonio Primary Care Provider UnavailJaime Ko Unavailable [phone] Agiomavritis, Demosthenes Unavailable Unavai lable Allergies Allergen [...] W/U Status Risk Notes Problem Tobacco use (124729723) Tobacco use (Z72.0) Active confirmed Problem Obstructive sleep apnea (86058251) Obstructive sleep apnea (G47.33) Active confirmed Problem Pulmonary nodule (408962649) Pulmonary nodule (R91.1) Active confirmed Problem COPD - Chronic obstructive pulmonary disease (25758509) COPD (chronic obstructive pulmonary disease) (J44.9) Active confirmed Problem Pulmonary infiltrate (871832810) Pulmonary infiltrate (R91.8) Active confirmed Problem Cardiovascular symptoms (611788939) Pulmonary hyperinflation (R09.89) Active confirmed Plan Of Treatment Pending Test Test Name Order Date CT LUNG SCREENING 01/14/2019 Insurance Providers Payer Name Payer Address Payer Phone Subscriber Number Group Number Insured Name Patient Relationship to Insured Coverage Start Date Coverage End Date [facility] [address] [place] [address] [phone] [id number] Akbar Radford Self - patient is the insured Medical (General) History Medical History History ICD Code Hyperlipidemia ? mild depression Surgical History Surgery Date(Month/Year) Appendectomy Nasal septoplasty UPPP Rotator cuff tear repair, left
--- OUTSIDE RECORDS SUMMARY | 2024-10-30 10:30 | XMS_ITS | Encounter Summary ---
Author Organization [facility] Address [address] [place] [address] Care Team Providers Care Hydrant Setter Name Role Phone Marco Antonio Maldonado MD Primary Care Provider [phone] Encounter Details Date Type Department Care Team (Late st Contact Info) Description 02/15/2022 Orders Only [facility] Lab Draw Site [address] [place] [address] Marco Antonio Maldonado MD [address] [place] [phone] Umbilical hernia with obstruction but no gangrene [...] Description 11/27/2024 10:00 AM EDT Office Visit [facility] [address] [place] [address] Warehouse Packaging Supervisor: Anju Aracely Don, TESSIE [address] [place] [address] documented as of this encounter Results * Due to [place] state law, this organization might not be sharing negative HIV tests. * Urinalysis With Microscopic (No Culture) (02/16/2022 9:29 AM EDT) Color, Urine Light Yellow Colorless, Light Yellow, Yellow, Dark Yellow 02/16/2022 10:11 AM EDT [facility] Clarity, Urine Clear Clear 02/16/2022 10:11 AM EDT [facility] Specific [place], Urine 1.009 1.005 - 1.030 02/16/2022 10:11 AM EDT [facility] pH, Urine 6.0 4.6 - 8.0 02/16/2022 10:11 AM EDT [facility] Protein, Urine Negative Negative 02/16/2022 10:11 AM EDT [facility] Glucose, Urine Negative Negative 02/16/2022 10:11 AM EDT [facility] Ketones, Urine Negative Negative 02/16/2022 10:11 AM EDT [facility] Bilirubin, Urine Negative Negative 02/16/2022 10:11 AM EDT [facility] Blood, Urine Negative Negative 02/16/2022 10:11 AM EDT [facility] Nitrite, Urine Negative Negative 02/16/2022 10:11 AM EDT [facility] Urobilinogen, Urine Normal Normal 02/16/2022 10:11 AM EDT [facility] Leukocyte Esterase, Urine Negative Negative 02/16/2022 10:11 AM EDT [facility] WBC, Urine 2 0 - 2 /HPF 02/16/2022 10:11 AM EDT [facility] RBC, Urine 0 0 - 2 /HPF 02/16/2022 10:11 AM EDT [facility] Hyaline Casts, Urine 0 0 - 2 /LPF 02/16/2022 10:11 AM EDT [facility] Bacteria, Urine None Seen None /HPF /HPF 02/16/2022 10:11 AM EDT [facility] Urine Voided urine specimen / Unknown Non-Blood Collection / Unknown 02/16/2022 9:29 AM EDT 02/16/2022 9:45 AM EDT us Marco Antonio Maldonado MD LAB URINE ORDERABLES Final [facility] [address] [place] [address], * (ABNORMAL) Basic Metabolic Panel (02/16/2022 9:22 AM EDT) NA 141 135 - 145 mmol/L 02/16/2022 10:14 AM EDT [facility] K 4.5 3.5 - 5.3 mmol/L 02/16/2022 10:14 AM EDT [facility] Cl 105 97 - 110 mmol/L 02/16/2022 10:14 AM EDT [facility] CO2 27 24 - 32 mmol/L 02/16/2022 10:14 AM EDT [facility] BUN 14 7 - 23 mg/dL 02/16/2022 10:14 AM EDT [facility] Creatinine 0.80 0.60 - 1.30 mg/dL 02/16/2022 10:14 AM EDT [facility] Glucose 108(H) 70 - 99 mg/dL 02/16/2022 10:14 AM EDT [facility] Calcium 9.9 8.7 - 10.7 mg/dL 02/16/2022 10:14 AM EDT [facility] Anion Gap 9 5 - 15 02/16/2022 10:14 AM EDT [facility] eGFR >90 >=90 mL/min/1. 73m2 02/16/2022 10:14 AM EDT [facility] Comment: Estimated Glomerular Filtration [...] MD LAB BLOOD ORDERABLES Final Resu lt [facility] [address] [place] [address], * CBC Auto Differential (02/16/2022 9:22 AM EDT) WBC 7.9 4.3 - 10.8 10*3/uL 02/16/2022 9:54 AM EDT [facility] RBC 4.92 4.20 - 5.80 10*6/uL 02/16/2022 9:54 AM EDT [facility] Hemoglobin 14.9 13.2 - 17.1 g/dL 02/16/2022 9:54 AM EDT [facility] Hematocrit 43.0 39.0 - [...] - 1.2 10*3/uL 02/16/2022 9:54 AM EDT [facility] Eosinophil # 0.2 0.0 - 0.6 10*3/uL 02/16/2022 9:54 AM EDT [facility] Basophil # 0.1 0.0 - 0.3 10*3/uL 02/16/2022 9:54 AM EDT [facility] Smear Review? No [facility] 02/16/2022 9:54 AM EDT [facility] Blood Structure of peripheral vein / Unknown Venipuncture / Unknown 02/16/2022 9:22 AM EDT 02/16/2022 9:47 AM EDT us Marco Antonio Maldonado MD LAB BLOOD ORDERABLES Final Resu lt [facility] [address] documented in this encounter Visit Diagnoses Diagnosis Umbilical hernia with obstruction but no gangrene- Primary Umbilical hernia with obstruction documented in this encounter Care Teams Hydrant Setter Relationship Specialty Start Date End Date Marco Antonio Maldonado MD [address] [place] [address] PCP - General Internal Medicine 08/21/21 documented as of this encounter
--- OUTSIDE RECORDS SUMMARY | 2024-10-30 10:30 | XMS_ITS | Clinical Summary ---
Author Organization [facility] Address [address] [place] [address] Care Team Providers Care Tire Groover Name Role Phone Pcp, No Primary Care Provider [phone] Social History Tobacco Use Types Packs/Day Years [...] Adults 18 yrs or above (or HM Modifier)([facility]) 1978 Hepatitis C Virus Infection in Adolescents and Adults: Screening (or Modifier) ([facility]) 1978 [facility] Screening Reminder: Radha moise for all adults ([facility]) 1978 Tobacco Smoking Cessation: i n Adults excluding Women: Behavioral and Pharmacotherapy Interventions ([facility]) 1978 Lipid Screening: Every 5 yrs for Men aged 35+ (or HM Modifier) ([facility]) 1996 Colorectal Cancer Screening 45 -75 Yrs (or HM Modifier) 2005 Colorectal Cancer: FLEXIBLE SIGMOIDOSCOPY Screening every 5 yrs 2005 Colorectal Cancer: Fecal Imm unochemical Test (FIT) Annually [facility] 2005 Colorectal Cancer: High-sens itivity gFOBT Screening Annually [facility] 2005 Colorectal Cancer: Stool Col oguard Screening every 3 yrs 2005 Colorectal Cancer:CT Colonog junior Screening every 5 yrs 2005 Pneumococcal Vaccination Scr eening: Patients 50+ yrs of age ([facility]) (1 of 1 - PCV) 2010 Zoster/Shingles Vaccine Seri es Screening: Adults aged 18+ yrs (or HM Modifiers)([facility]) (1 of 2) 2010 COVID-19 Vaccine Screening: Initial Series and Booster Status ([facility]) ( - 2023- season) 2024 Flu Vaccination: Yearly for ages 18mos through 64 years (or Modifier)([facility]) 01/22/2025 DTaP/Tdap/Td Vaccines ([facility]) (2 - Td or Tdap) 03/14/2017 RSV Vaccines (1 - 1-dose 75+ series) 2035 [employer] Not on file Insurance [facility] Care Teams Tire Groover Relationship Specialty Start Date End Date Abby, Navya PCP - General Family Medicine 07/06/20
--- OUTSIDE RECORDS SUMMARY | 2024-10-30 10:30 | XMS_ITS ---
Author Organization [facility] Address [address] [place] [phone] Care Team Providers Care Ball Holder Name Role Phone JAYA MCDOWELL Primary Care Provider Dunia Sanchez Unavailable [phone] REASON FOR VISIT PREP Medications Medication SIG (Take, Route, Frequency, Duration) Notes Start Date End Date Status Sutab 0.225 g-0.188 g-1.479 g as directed Coupon information: BIN: [id number] PCN: CN GRP: [id number] ID: [id number] 07/26/2023 Active Encounters Encounter Location Date Provider Diagnosis [facility] [address] [place] [phone] 07/26/2023 Dunia Sandy Plan Of Treatment Medication Medication Name Sig Start Date Stop Date Notes Sutab 0.225 g-0.188 g-1.479 g as directe d Coupon information: BIN: [id number] PCN: CN GRP: [id number] ID: [id number] 07/26/2023 Progress Notes * RAMAN HYDEDOB:1960 (63 yo M)Acc No.[id number]:07/26/2023 Patient:?RAMAN HYDE :1960???Age:63 Y???Sex:Male Address:[address] [place] [phone] * Refills? Start Sutab tablet, 0.225 g-0.188 g-1.479 g, Coupon information: BIN: [id number] PCN: CN GRP: [id number] ID: [id number], 1 Kit, as directed * true * Date:? Generated for Margoth santana/Patricia/Rosina on:?10/30/2024 10:29 AM EDT
--- OUTSIDE RECORDS SUMMARY | 2024-10-30 10:30 | XMS_ITS | Clinical Summary ---
Author Organization [facility] Address [address] [place] [address] Care Team Providers Care Chute Worker Name Role Phone Marco Antonio Maldonado MD Primary Care Provider [phone] Allergies Active Allergy Reactions Criticality Noted Date [...] Department Care Team Description 10/12/2024 Community Orders [facility] [address] [place] [id number] Marco Antonio Maldonado MD 10/09/2024 Community Orders [facility] [address] [place] [address] Marco Antonio Maldonado MD 10/06/2024 1:10 PM EDT - 10/06/2024 11:59 PM EDT Hospital Encounter [facility] Ultrasound [address] [place] [address] Left testicular pain Discharge Disposition: Home or Self Care () 10/05/2024 Orders Only [facility] [address] [place] [address] Marco Antonio Maldonado MD Elevated prostate specific antigen (PSA) 10/01/2024 Community Orders [facility] [address] [place] [address] Marco Antonio Maldonado MD 09/30/2024 Orders Only [facility] [place] [address] Respiratory Therapy Technician: Aracely Gonzalez NP 09/28/2024 8:00 AM EDT Office Visit [facility] [place] [place] [address] Respiratory Therapy Technician: Aracely Gonzalez NP Abnormal prostate specific antigen (PSA) (Primary Dx); Left testicular pain 09/28/2024 Telephone [facility] [place] [address] Respiratory Therapy Technician: Aracely Gonzalez NP 09/15/2024 Orders Only [facility] Draw Site [address] [place] [address] Marco Antonio Maldonado MD Elevated prostate specific antigen (PSA) (Primary Dx) 09/15/2024 Orders Only [facility] [place] [address] Respiratory Therapy Technician: Rohit Sinclair MD 09/11/2024 Telephone [facility] [place] [address] Respiratory Therapy Technician: Murtaza López LPN 09/01/2024 Transcribe Orders [facility] [address] [place] [address] Marco Antonio Maldonado MD Elevated prostate specific antigen (PSA) (Primary Dx) from Last 3 Months Immunizations Immunization Administration [...] Description 11/27/2024 10:00 AM EDT Office Visit [facility] [address] [place] [address] - [place] [address] Respiratory Therapy Technician: Aracely Gonzalez NP [address] [place] [address] Health Maintenance Due Date Last Done Comments [...] Colon Cancer Screening 10/18/2030 Colonoscopy 10/18/2030 10/18/2020, 09/23, 07/22/2018, Additional history exists Hepatitis B Vaccines Aged Out No long er eligible based on patient's age to complete this topic Procedures * Due to [place] state law, this organization might not be [...] to Health Maintenance Results * Due to [place] state law, this organization might not be [...] obtain the completed interpretation. ? Workstation ID: [id number] Narrative 10/06/2024 2:08 PM EDT EXAMINATION: Scrotal [...] with a septation noted Resulting Agency Comment [id number] Procedure Note Brian West MD - 10/06/2024 [...] possible to obtain thecompleted interpretation. Workstation ID: [id number] us Aracely Lopes NP IMG US PROCEDURES [...] obtain the completed interpretation. ? Workstation ID: [id number] Narrative 10/08/2024 1:52 PM EDT STUDY: MRI [...] fat-containing left inguinal hernia. Resulting Agency Comment [id number] Procedure Note Donaldo Bliss MD - 10/08/2024 [...] possible to obtain thecompleted interpretation. Workstation ID: [id number] us Marco Antonio Maldonado MD IMG MRI PROCEDURES Final Result * Guzman Top, Urine (09/28/2024 4:55 PM EDT) Extra Tube Hold for add-ons. 09/28/2024 9:05 PM EDT [facility] Comment:Auto resulted. Urine Urine specimen collection, clean catch / Unknown Non-Blood Collection / Unknown 09/28/2024 4:55 PM EDT 09/28/2024 5:54 PM EDT us Aracely Lopes [employer]ESE [employer] PROFESSOR LAB URINE ORDERABLES F inal Result [facility] [address] [place] [address], [place] * (ABNORMAL) Urinalysis W/Reflex to Microscopic & Culture (09/28/2024 4:55 PM EDT) Color, Urine Light Yellow Colorless, Light Yellow, Yellow, Dark Yellow 09/28/2024 6:29 PM EDT [facility] Clarity, Urine Clear Clear 09/28/2024 6:29 PM EDT [facility] Specific Harrison, Urine 1.005 1.005 - 1.030 09/28/2024 6:29 PM EDT [facility] pH, Urine 6.0 4.6 - 8.0 09/28/2024 6:29 PM EDT [facility] Protein, Urine Negative Negative 09/28/2024 6:29 PM EDT [facility] Glucose, Urine Negative Negative 09/28/2024 6:29 PM EDT [facility] Ketones, Urine Negative Negative 09/28/2024 6:29 PM EDT [facility] Bilirubin, Urine Negative Negative 09/28/2024 6:29 PM EDT [facility] Blood, Urine Negative Negative 09/28/2024 6:29 PM EDT [facility] Nitrite, Urine Negative Negative 09/28/2024 6:29 PM EDT [facility] Urobilinogen, Urine Normal Normal 09/28/2024 6:29 PM EDT [facility] Leukocyte Esterase, Urine Trace(A) Negative 09/28/2024 6:29 PM EDT [facility] WBC, Urine 4(H) 0 - 2 /HPF 09/28/2024 6:29 PM EDT [facility] RBC, Urine <1 0 - 2 /HPF 09/28/2024 6:29 PM EDT [facility] Hyaline Casts, Urine 0 0 - 2 /LPF 09/28/2024 6:29 PM EDT [facility] Bacteria, Urine None None /HPF /HPF 09/28/2024 6:29 PM EDT [facility] Urine Urine specimen collection, clean catch / Unknown Non-Blood Collection / Unknown 09/28/2024 4:55 PM EDT 09/28/2024 5:55 PM EDT Aracely Lopes NP LAB URINE ORDERABLES F inal Result [facility] [address] [place] [address], * (ABNORMAL) Urine Culture, Routine (09/28/2024 4:55 PM EDT) Culture Results Updated 09/30/2024 3:40 PM EDT [facility] by [employer] [facility] Culture Escherichia coli(A) 09/30/2024 3:40 PM EDT [facility] by [employer] [facility] Comment:10,000-49,000 CFU/mL of Escherichia coli Urine Urine specimen collection, clean catch / Unknown Non-Blood Collection / Unknown 09/28/2024 4:55 PM EDT 09/28/2024 6:19 PM EDT Narrative CINTHYA MOTT - 09/30/2024 3:40 PM EDT [facility] Received Date: MICRO NUMBER: [id number] SPECIMEN QUALITY: Adequate SOURCE: URINE CLEAN CATCH [...] - GEN ERAL ORDERABLES Final Result [facility] [address] [facility] [address], [address] [place] [address], [place] [phone] [employer] D[facility] by [employer] [facility] [address] [facility] [address], [address] [place] [address], [place] [phone] * (ABNORMAL) PSA, Total and Free (09/23/2024 7:39 AM EDT) PSA 10.10(H) <=4.00 ng/mL 09/23/2024 8:40 AM EDT [facility] Comment: The total PSA [...] Free 0.902 ng/mL 09/23/2024 8:40 AM EDT [email or web address] Comment: This test was performed using Eugenia chemiluminescent method. ??Values obtained by different assay methods cannot be used interchangeably. PSA % Free 9(L) >25 % 09/23/2024 8:40 AM EDT [email or web address] Comment: A cutoff of [...] MD LAB BLOOD ORDERABLES Final Resu lt [facility] [address] [place] [address], * LAB - SCANNED (09/15/2024 8:23 AM EDT) us Unknown Provider LAB HISTORICAL RESULTS Final Result * COLONOSCOPY (10/18/2020) Narrative Procedure Note Ronal Gaffney MD - 10/18/2020 11:16 AM EDT [facility] Patient Name: Akbar Radford Procedure Date: 10/18/2020 11:16 AM Date of : 1960 Age: 60 Room: [facility] Gender: Male Note Status: Finalized Attending MD: [...] Most Recently Relevant to Health Maintenance Insurance [facility] HMO/POS Advance Directives * Full Code (Latest Code Status on File) Date Activated Date Inactivated Comments 10/02/2023 7:35 AM 10/02/2023 1:19 PM Care Teams Chute Worker Relationship Specialty Start Date End Date Marco Antonio Maldonado MD [address] [place] [id number] PCP - General Internal Medicine 08/21/21
--- OUTSIDE RECORDS SUMMARY | 2024-10-30 10:31 | XMS_ITS ---
Author Organization [facility] Address [address] [place] [address] [address] [place] [address] Care Team Providers Care Extractions Technician Name Role Phone JAYA MCDOWELL Primary Care Provider Dunia Sanchez Unavailable [phone] REASON FOR VISIT WSC: COLO + FIT INS BCBS PCP DR. MCDOWELL PREP SUTAB SM Medications Medication SIG (Take, Route, Frequency, Duration) Notes Start Date End Date Status Sutab 0.225 g-0.188 g-1.479 g as directed Coupon information: BIN: [id number] PCN: CN GRP: [id number] ID: [id number] 07/26/2023 Active Encounters Encounter Location Date Provider Diagnosis [address] [address] 08/16/2023 Dunia Sandy Plan Of Treatment No Information Progress Notes * RAMAN HYDEDOB:1960 (64 yo M)Acc No.[id number]:08/16/2023 Progress Notes Patient:?RAMAN HYDE Provider:Krista Sandy MD :1960???Age:63 Y???Sex:Male Phan e:08/16/2023 Address:[address] [place] [phone] Pcp:JAYA MCDOWELL Subjective: * Chief Complaints: * ???1. WSC: COLO + FIT INS BC BS PCP DR. MCDOWELL PREP SUTAB SM. * Medical History:? * Medications:?Taking Sutab 0. 225 g-0.188 g-1.479 g tablet as directed Coupon information: BIN: [id number] PCN: CN GRP: [id number] ID: [id number] Objective: * Vitals:? Assessment: Plan: * Treatment: * * Electronic signature of Nagi Sandy M.D. on 10/30/2024 at 10:30 AM EDT Sign off status: Pending * Provider:Krista Sandy MD Date:?07/26 Generated for Margoth santana/Patricia/Rosina on:?10/30/2024 10:30 AM EDT
--- NOTE | 2024-11-20 10:17 | HO.ANESPROP2 ---
Documented by User: Kacey Romero NP 11/20/24 10:18 HPI - Anesthesia Eval Consult details Narrative: 64yo M for Targeted prostate needle biopsy PMFSH Active Problems Active Problems: All Active Problems Bladder outlet obstruction (Acute) Elevated PSA (Acute) Past Medical History Medical History BPH (benign prostatic hyperplasia) Smoker Surgical History Surgical History History of uvulectomy Hx of repair of left rotator cuff Hx of colonoscopy Social History Social History Are you a primary urgent care physician to a significant other at home: No Do you presently have visiting nurse or other home services: No Patient Tobacco Use Status: Current everyday Tobacco user Tobacco use type: Cigarette Smoked in Last 30 Days: Yes Patient Interested in Nicotine Replacement: No Have you been hit, kicked, punched, or otherwise hurt by someone within the past year? If so, by whom?: No Are you DNR?: No Advance Directives: No Advance Directives Information Provided: Yes Poor oral hygiene: No Meds Allergies Allergy/AdvReac Type Severity Reaction Status Date / Time iodine Allergy Redness of Verified 11/23/24 09:32 Skin povidone-iodine Allergy Redness of Verified 11/23/24 09:37 [From Betadine] Skin Sulfa (Sulfonamide Allergy Unknown Verified 11/23/24 09:32 Antibiotics) Home Medications ?Medication ?Instructions ?Recorded ?Confirmed ?Last Taken ?Type albuterol sulfate 90 mcg/actuation inhalation 11/23/24 11/23/24 Unknown History aerosol inhaler Assessment and Plan Assessment Anesthesia Assessment: Chart Reviewed Documented by User: Justyn Schaefer MD 11/23/24 11:17 PMFSH Past Medical History Medical History BPH (benign prostatic hyperplasia) Smoker Functional capacity: independent ambulation Family History Family history of problems with anesthesia: Yes Surgical History Surgical History History of uvulectomy Hx of repair of left rotator cuff Hx of colonoscopy Social History Social History Are you a primary urgent care physician to a significant other at home: No Do you presently have visiting nurse or other home services: No Patient Tobacco Use Status: Current everyday Tobacco user Tobacco use type: Cigarette Smoked in Last 30 Days: Yes Patient Interested in Nicotine Replacement: No Have you been hit, kicked, punched, or otherwise hurt by someone within the past year? If so, by whom?: No Are you DNR?: No Advance Directives: No Advance Directives Information Provided: Yes Poor oral hygiene: No Travel History History of recent travel: No Recent [facility] Within the Last 8 Weeks: No Meds Allergies Allergy/AdvReac Type Severity Reaction Status Date / Time iodine Allergy Redness of Verified 11/23/24 09:32 Skin povidone-iodine Allergy Redness of Verified 11/23/24 09:37 [From Betadine] Skin Sulfa (Sulfonamide Allergy Unknown Verified 11/23/24 09:32 Antibiotics) Home Medications ?Medication ?Instructions ?Recorded ?Confirmed ?Last Taken ?Type albuterol sulfate 90 mcg/actuation inhalation 11/23/24 11/23/24 Unknown History aerosol inhaler Exam Exam Date and Time: november 23 2024 Height,Weight and Vital Signs: 66inches: 186lbs Airway Mallampati Class: II TM Dist: >3cm Neck ROM: Full Loose/Missing/Broken Teeth: No Heart: rrr Lungs: cta Assessment and Plan Final Anesthetic Review Family History of Problems with Anesthesia: Yes Final Preanesthetic Review: No Changes in Pt Med Stat, Meds/Allgs Chart Reviewed and Consent Obtained/Reviewed Patient Risk: Low Procedure Risk: Low Anesthetic Plan Anesthetic Plan: GA Disposition: Standard PACU
[2024-11-23 09:29] VITALS: BMI 31.3
[2024-11-23 10:00] VITALS: BP 135/66; PULSE 78; RESP 18; TEMP 36.8; O2SAT 96
[2024-11-23] MEDS: Lactated Ringers 1,000 ML 80 ML IVCONT (10:10)
[2024-11-23] MEDS: levoFLOXacin 500 MG TABLET PO (11:02)
--- NOTE | 2024-11-23 11:16 | MHC.SHP ---
Pre-Procedural Eval Section A - 24 Hr Update-Section A only Date of Service: 11/23/24 The patient is an INPATIENT: No Changes since office visit: No Cold of Flu in the past 2 weeks, No New Medical Problems, No Changes in Medication and No Patient answered all questions The patient has been examined within 24 hours of the surgical procedure. The History & Physical has been completed within 30 days and I have reviewed it.: Yes Section B - Complete if H&P > 30 days Chief Complaint: Elevated prostate specific antigen [PSA] Allergies: Allergies Allergy/AdvReac Type Severity Reaction Status Date / Time iodine Allergy Redness of Verified 11/23/24 09:32 Skin povidone-iodine Allergy Redness of Verified 11/23/24 09:37 [From Betadine] Skin Sulfa (Sulfonamide Allergy Unknown Verified 11/23/24 09:32 Antibiotics) Plan Diagnosis/Plan: Unchanged (Targeted fusion prostate biopsy) I have reviewed the history and physical and performed a pertinent physical examination on my patient. No changes have occurred unless specified. Time Spent With Patient Time: Total time managing care of this patient today ____ minutes.
--- NOTE | 2024-11-23 12:02 | W.PM.OPN ---
Operative Note Operative Note Date of Service: 11/23/24 Narrative: Preoperative diagnosis: Elevated PSA Postoperative diagnosis: Elevated PSA Procedure: 1. transrectal ultrasound-guided pudendal nerve block 2. MRI-US fusion image registration performed 3. transperineal ultrasound-guided prostate biopsy 15 core including targets Surgeon: Dr. Aurelio Friend Anesthetic: Sedation plus local Indications for procedure: Elevated PSA MRI posterior right, left lateral base 10mm PiRADS4, 50 gm prostate Procedure: After informed consent was verified, the patient was brought into the procedure area. Patient identity confirmed. Perioperative antibiotics confirmed. Safety pause time out performed. Anesthesia performed per protocol. Scrotum taped out of operative area. Iodine prep used. Perineal injection of local anesthetic. Digital guided prostate pudendal nerve block performed with 10 cc of 1% lidocaine. 5cc each side. Combination 10cc iodine with 50cc gel was mixed and placed in the rectum. Ultrasound probe was placed per rectum. Ultrasound probe stabilized on a prostate stepper with attached grid. [employer] software and hardware platform used for US image acquisition, US 3D model creation and MRI-US fusion image overlay. Ultrasound placement was made with external grid calibration for height and prostate diameter in both the transverse and longitudinal planes. Grid A-C covering right prostate and c-F covering left prostate. Numbers 1.0-2.5 covering posterior prostate and 2.5-4.0 covering anterior prostate. Once grid calibration was confirmed prostate ultrasound data acquisition was performed in the transverse fashion. The US images were registered to create model boundaries. A three dimensional ultrasound model was created using [employer] software. The model was reviewed against acquired US images. The planned needle targeting, based on prior acquisition of MRI imaging, was overlaid on the ultrasound images and targets confirmed through ultrasound review. Adjustments were then made between real time and projected model targeting locations. Based on pre-planning evaluation 15 targets had been identified. These included 2 targets 10mm PiRADS 4 as described above identified lesion/s. He tolerated the procedure well. Was transferred to stable condition in the PACU. Printed instructions regarding antibiotic use and common side effects such as low-grade temperature, potential infection and bleeding were given Pathology: 15 core prostate biopsy CPT 89404 Modifier 22 for complexity of procedure execution (Perineal prostate biopsy) CPT code 06777: Transrectal ultrasound; this is a diagnostic test for evaluation of the prostate and surrounding structures, looking for abnormalities or suspicious areas worrisome for cancer CPT code 43458: Ultrasonic guidance for needle placement (eg, biopsy, aspiration, injection, localization device), imaging supervision and interpretation CPT 98276: 3D rendering with interpretation and reporting of computed tomography (CT), MRI, ultrasound, or other tomographic modality with image postprocessing under concurrent supervision; not requiring image postprocessing on an independent workstation
[2024-11-23 12:13] VITALS: BP 129/72; PULSE 83; RESP 20; TEMP 36.6; O2SAT 94
[2024-11-23 12:18] VITALS: BP 126/74; PULSE 87; RESP 20; O2SAT 95
[2024-11-23 12:23] VITALS: BP 133/83; PULSE 86; RESP 20; O2SAT 97
[2024-11-23 12:28] VITALS: BP 114/76; PULSE 90; RESP 20; TEMP 36.5; O2SAT 94
[2024-11-23 12:35] VITALS: BP 137/83; PULSE 82; RESP 20; TEMP 36.5; O2SAT 94
== END 2024-11-23 13:56 | disposition home or self-care (01) ==
PROVIDERS: PCP Internal Medicine; Visit Provider Urology
PROC: (CPT 55700; principal; 2024-11-23 11:40)
DX: N40.1 Benign prostatic hyperplasia with lower urinary tract symptoms (principal); N32.0 Bladder-neck obstruction; N13.8 Other obstructive and reflux uropathy; R33.8 Other retention of urine; R97.20 Elevated prostate specific antigen [PSA]; N41.9 Inflammatory disease of prostate, unspecified; N32.89 Other specified disorders of bladder; Z79.899 Other long term (current) drug therapy; Z88.2 Allergy status to sulfonamides; Z91.041 Radiographic dye allergy status; F17.210 Nicotine dependence, cigarettes, uncomplicated
CPT/HCPCS: 55706; 88305; J2003; J2405; J2704; J2795; J3010

== ENCOUNTER → 2024-11-23 09:11 | Outpatient (BNV) | payer BC, SELFPAY | PROVIDERS: PCP Internal Medicine; Visit Provider Urology | DX: R97.20 Elevated prostate specific antigen [PSA] (principal) | CPT/HCPCS: 55706; 76376; 76872; 76942 ==

== ENCOUNTER 2024-12-08 13:56 | Outpatient (AMB) | payer BC, SELFPAY ==
--- NOTE | 2024-12-08 14:13 | A.OFFVIS_ITS ---
Intake Visit Reasons: Prostate Biopsy results Intake Note: Patient is present for PROSTATE BIOPSY RESULTS Urology Medication:FINASTERIDE Antibiotic Allergy:SULFA Blood Thinner:NONE Tank Cleaner Required: No Allergies iodine Allergy (Verified 12/08/24 14:13) Redness of Skin povidone-iodine (From Betadine) Allergy (Verified 12/08/24 14:13) Redness of Skin Sulfa (Sulfonamide Antibiotics) Allergy (Verified 12/08/24 14:13) Unknown HPI Comments Details: Akbar is a pleasant male. He is a patient of Dr. Maldonado. He is seen for the following urologic conditions. - elevated PSA - lower urinary tract symptoms Telemedicine Evaluation 15 min Consultation [employer] Danny Video Discussion of targeted biopsy results Shows mild prostate inflammation otherwise normal Will follow-up four-month repeat PSA and testosterone Continue finasteride Elevated PSA PSA 08/18 8.0, 10/16 10.1 Discussed recent MRI results. Correlation between PI-RADS 4 lesions on MRI and biopsy result proximally 85%. Discussed MRI can not tell you grade of disease and most frequently this would be low-grade disease. Variable MRI may reflect underlying neoplastic process. However recent 2 point variation is more suggestive of prostatitis. Would recommend MRI ultrasound fusion biopsy. Recent prostate MRI Prostate volume 50 cc 2 PI-RADS 4 lesions. Left base lateral. 10 mm. Abutment of capsule. Posterior right base. 10 mm. Bladder findings with diffuse wall thickening and trabeculation consequence of chronic outlet obstruction. Secondary issue of concern is diffuse bladder wall thickening with trabeculation. Recommend initiation finasteride to help manage outlet obstruction and address PSA whilst mitigating potential prostate cancer risk. PFSH Medical History BPH (benign prostatic hyperplasia) Smoker Surgical History History of uvulectomy Hx of repair of left rotator cuff Hx of colonoscopy Social History Are you a primary progressive care manager to a significant other at home: No Do you presently have visiting nurse or other home services: No Patient Tobacco Use Status: Current everyday Tobacco user Tobacco use type: Cigarette Review of Systems Const All systems reviewed & are unremarkable except as noted in HPI and below Reports no additional complaints Resp Reports no additional complaints GI Reports no additional complaints Reports as per HPI Musc Reports no additional complaints Physical Exam Telemedicine evaluation Appropriate responses Regular breathing rate and rhythm HEENT Head: Yes normal to inspection Ears: hearing grossly normal bilaterally Eyes General: appearance normal, both eyes and all related structures Neck Neck: Yes normal visual inspection Chest Chest palpation & inspection: normal inspection of the chest Resp Effort & Inspection: normal respiratory effort and able to speak in complete sentences Telehealth Telehealth Telehealth Platform: Perfect Location of provider rendering services: practice address Location of patient: address on file Patient Identification confirmed using: Name, : Yes Telehealth method: voice only Patient verbally consented to treatment: Yes Patient verbally consented to billing insurance company: Yes Patient informed of any privacy concerns related to visit: Yes Minutes spent on Phone/Video with Pt.: 15 Assessment & Plan Assessment & Plan (1) Elevated PSA: Code(s): R97.20 - Elevated prostate specific antigen [PSA] Category: Medical (2) Bladder outlet obstruction: Code(s): N32.0 - Bladder-neck obstruction Category: Medical Plan Four month follow-up PSA and testosterone Orders: Orders Testosterone, Total 4 Months N32.0 - Bladder-neck obstruction Prostate Specific Antigen 4 Months N32.0 - Bladder-neck obstruction Patient Instructions: This note is constructed using voice recognition software. While every effort has been made to ensure accuracy crimping machine operator for metal errors may have been included. Imaging studies, laboratory and physical exam results were discussed and reviewed in detail. No major barriers to patient understanding were identified. An opportunity to ask questions regarding the treatment plan was provided. All questions were answered. The patient expressed understanding and agreement with the above treatment plan. The patient is aware they should contact our office by phone for worsening of their current condition or the appearance of new urologic symptoms. Compliance is encouraged with any medications and followup testing that is ordered. It is a privilege to participate in the urologic care of your patient. If you have any questions or concerns regarding treatment for the above conditions, or other urologic issues, please do not hesitate to contact me. The office telephone contact is [phone]. Sincerely, Dr Aureilo rFiend MD, [facility] - Urology Compassionate Specialist Care for the Genitourinary System Coding Level of Care Code Tele Est Pt Level 3 (17769) Complex EM visit Add On G2211 Diagnoses Elevated PSA R97.20 Bladder outlet obstruction N32.0
--- OUTSIDE RECORDS SUMMARY | 2024-12-08 16:00 | XMS_ITS | Encounter Summary ---
Author Organization [facility] Address [address] [place] [address] Care Team Providers Care Solicitor Patent Name Role Phone Marco Antonio Maldonado MD Primary Care Provider [phone] Encounter Details Date Type Department Care Team (Late st Contact Info) Description 02/16/2022 Orders Only [facility] XRay [address] [place] [address] iMkhail Dorantes MD [address] [place] [address] Social History Tobacco Use Types Packs/Day Years [...] as of this encounter Plan of Treatment Not on file documented as of this encounter Visit Diagnoses Not on filedocumented in this encounter Care Teams Solicitor Patent Relationship Specialty Start Date End Date Marco Antonio Maldonado MD [address] [place] [address] PCP - General Internal Medicine 08/21/21 documented as of this encounter
== END 2024-12-08 15:41 | disposition home or self-care (01) ==
LOC: HO.HUSH 13:56
PROVIDERS: PCP Internal Medicine; Visit Provider Urology
DX: R97.20 Elevated prostate specific antigen [PSA] (principal); N32.0 Bladder-neck obstruction
CPT/HCPCS: 99213

== ENCOUNTER → 2024-12-08 13:56 | Outpatient (BNVA) | payer BC, SELFPAY | PROVIDERS: PCP Internal Medicine; Visit Provider Urology ==

== ENCOUNTER 2025-04-09 10:55 | Outpatient (AMB) | payer BC, SELFPAY ==
--- OUTSIDE RECORDS SUMMARY | 2024-10-31 17:30 | XMS_ITS ---
Author Organization [facility] Address [address] [place] [phone] Care Team Providers Care Clerk Cashier Name Role Phone JAYA MCDOWELL Primary Care Provider Unavailabl Dunia Salinas Unavailable [phone] Migration, Provider Unavailable Unavailable REASON FOR VISIT Multum To Medispan Conversion Encounter Medications Medication SIG (Take, Route, Frequency, Duration) Notes Start Date End Date Status Sutab 0.225 G-0.188 G-1.479 G DIRECTED COUPON INFORMATION: BIN: [id number] PCN: CN GRP: [id number] ID: [id number] *Please review and pick correct strength-formulatio n from Medispan options. If intended option is not shown, discontinue and re-order from Quick Search* 07/26/2023 Active Encounters Encounter Location Date Provider Diagnosis [facility] [address] [place] [phone] 10/31/2024 Provider Migration Plan Of Treatment No Information Progress Notes * HYDEPAYAM SALEEMDAVIDDOB:1960 (64 yo M)Acc No.[id number]:10/31/2024 Patient: RAMAN OATES Provider: :1960 A ge:64 Y S ex:Male Date:10/31/2024 Address:[address] [place], [place] [phone] Pcp:JAYA MCDOWELL Subjective: * Chief Complaints: * 1 . Multum To Medispan Conversion Encounter. * Medical History: * Medications: T aking Sutab 0.225 G-0.188 G-1.479 G TABLET DIRECTED COUPON INFORMATION: BIN: [id number] PCN: CN GRP: [id number] ID: [id number] , Notes to Pharmacist: *Please review and pick correct strength-formulation from Medispan options. If intended option is not shown, discontinue and re-order from Quick Search* Objective: * Vitals: Assessment: Plan: * Treatment: * * Electronic signature of Prov ider Migration on 04/09/2025 at 01:32 PM EDT Sign off status: Pending * Provider: Date: 0 10/31/2024 Generated for Margoth santana/Patricia/Crispinitting on: 01:32 PM EDT
--- NOTE | 2025-04-09 10:55 | A.OFFVIS_ITS ---
Intake Visit Reasons: 4m follow up/ labs Intake Note: Patient is present for telehealth 4mo follow up/labs Urology Medication:FINASTERIDE Blood Thinner:NONE labs done 03/26/25: PSA 5.87, TT 464 Agency Service Coordinator Required: No Accompanied by: Self / Same As Patient Allergies iodine Allergy (Verified 04/09/25 10:56) Redness of Skin povidone-iodine (From Betadine) Allergy (Verified 04/09/25 10:56) Redness of Skin Sulfa (Sulfonamide Antibiotics) Allergy (Verified 04/09/25 10:56) Unknown HPI Comments Details: Akbar is a pleasant male. He is a patient of Dr. Maldonado. He is seen for the following urologic conditions. - elevated PSA - lower urinary tract symptoms Telemedicine Evaluation 15 min Consultation [employer] Danny Video Discussed PSA finding with finasteride 3 times a week Would continue Testosterone normal range for 64-year-old Did have questions regarding optimization of erectile quality Discussed Elevated PSA PSA 08/18 8.0, 10/16 10.1, 04/17 5.8 T464 Recent prostate MRI Prostate volume 50 cc 2 PI-RADS 4 lesions. Left base lateral. 10 mm. Abutment of capsule. Posterior right base. 10 mm. Bladder findings with diffuse wall thickening and trabeculation consequence of chronic outlet obstruction. Prostate Biopsy 10/16 targeted biopsy NAD Secondary issue of concern is diffuse bladder wall thickening with trabeculation. Recommend initiation finasteride to help manage outlet obstruction and address PSA whilst mitigating potential prostate cancer risk. PFSH Medical History BPH (benign prostatic hyperplasia) Smoker Surgical History History of uvulectomy Hx of repair of left rotator cuff Hx of colonoscopy Social History Are you a primary director of patient care to a significant other at home: No Do you presently have visiting nurse or other home services: No Patient Tobacco Use Status: Current everyday Tobacco user Tobacco use type: Cigarette Review of Systems Const All systems reviewed & are unremarkable except as noted in HPI and below Reports no additional complaints Resp Reports no additional complaints GI Reports no additional complaints Reports as per HPI Musc Reports no additional complaints Physical Exam Telemedicine evaluation Appropriate responses Regular breathing rate and rhythm HEENT Head: Yes normal to inspection Ears: hearing grossly normal bilaterally Eyes General: appearance normal, both eyes and all related structures Neck Neck: Yes normal visual inspection Chest Chest palpation & inspection: normal inspection of the chest Resp Effort & Inspection: normal respiratory effort and able to speak in complete sentences Telehealth Telehealth Telehealth Platform: [employer] Location of provider rendering services: practice address Location of patient: address on file Patient Identification confirmed using: Name, : Yes Telehealth method: video Patient verbally consented to treatment: Yes Patient verbally consented to billing insurance company: Yes Patient informed of any privacy concerns related to visit: Yes Assessment & Plan Assessment & Plan (1) Elevated PSA: Code(s): R97.20 - Elevated prostate specific antigen [PSA] Category: Medical (2) Bladder outlet obstruction: Code(s): N32.0 - Bladder-neck obstruction Category: Medical (3) Erectile dysfunction: Code(s): N52.9 - Male erectile dysfunction, unspecified Category: Medical Plan Check PSA six-month Orders: Orders Prostate Specific Antigen 6 Months R97.20 - Elevated prostate specific antigen [PSA] Medications: New tadalafil [id number] [facility] GroupGDRX Member [id number] 20 mg PO ONCE PRN 30 tabs 1RF sexual activity 30 days N52.9 - Male erectile dysfunction, unspecified Patient Instructions: This note is constructed using voice recognition software. While every effort has been made to ensure accuracy development representative errors may have been included. Imaging studies, laboratory and physical exam results were discussed and reviewed in detail. No major barriers to patient understanding were identified. An opportunity to ask questions regarding the treatment plan was provided. All questions were answered. The patient expressed understanding and agreement with the above treatment plan. The patient is aware they should contact our office by phone for worsening of their current condition or the appearance of new urologic symptoms. Compliance is encouraged with any medications and followup testing that is ordered. It is a privilege to participate in the urologic care of your patient. If you have any questions or concerns regarding treatment for the above conditions, or other urologic issues, please do not hesitate to contact me. The office telephone contact is [phone]. Sincerely, Dr Aurelio Friend MD, [facility] - Urology Compassionate Specialist Care for the Genitourinary System Coding Level of Care Code Tele Est Pt Level 4 (79220) Complex EM visit Add On G2211 Diagnoses Elevated PSA R97.20 Bladder outlet obstruction N32.0 Erectile dysfunction N52.9
--- OUTSIDE RECORDS SUMMARY | 2025-04-09 13:32 | XMS_ITS | Encounter Summary ---
Author Organization [facility] Address [address] [place] [address] Care Team Providers Care Auto Parts Salesperson Name Role Phone Marco Antonio Maldonado MD Primary Care Provider [phone] Encounter Details Date Type Department Care Team (Late st Contact Info) Description 09/27/2022 Orders Only [facility] [place] Lab Draw Site [address] [place] [address] Marco Antonio Maldonado MD [address] [place] [address] [phone] Asthma, unspecified asthma severity, unspecified whether complicated, [...] (PSA) documented in this encounter Care Teams Auto Parts Salesperson Relationship Specialty Start Date End Date Marco Antonio Maldonado MD [address] [place] [address] PCP - General Internal Medicine 08/21/21 documented as of this encounter
--- OUTSIDE RECORDS SUMMARY | 2025-04-09 13:32 | XMS_ITS | Clinical Summary ---
Author Organization [facility] [employer] [facility] [employer] Address [address] [place] [address] Care Team Providers Care Patient Centered Care Specialist Name Role Phone Pcp, No Primary Care Provider [phone] Social History Tobacco Use Types Packs/Day Years [...] Adults 18 yrs or above (or HM Modifier)([facility]) 1978 Hepatitis C Virus Infection in Adolescents and Adults: Screening (or Modifier) ([facility]) 1978 [facility] Screening Reminder: Radha moise for all adults ([facility]) 1978 Tobacco Smoking Cessation: i n Adults excluding Women: Behavioral and Pharmacotherapy Interventions ([facility]) 1978 Colorectal Cancer Screening 45 -75 Yrs (or HM Modifier) 2005 Colorectal Cancer: FLEXIBLE SIGMOIDOSCOPY Screening every 5 yrs 2005 Colorectal Cancer: Fecal Imm unochemical Test (FIT) Annually [facility] 2005 Colorectal Cancer: High-sens itivity gFOBT Screening Annually [facility] 2005 Colorectal Cancer: Stool Col oguard Screening every 3 yrs 2005 Colorectal Cancer:CT Colonog junior Screening every 5 yrs 2005 Pneumococcal Vaccination Scr eening: Patients 50+ yrs of age ([facility]) (1 of 1 - PCV) 2010 Zoster/Shingles Vaccine Seri es Screening: Adults aged 18+ yrs (or HM Modifiers)([facility]) (1 of 2) 2010 Flu Vaccination: Yearly for ages 18mos through 64 years (or Modifier)([facility] ) 01/22/2025 COVID-19 Vaccine Screening: Initial Series and Booster Status ([facility]) ( - 2023- season) 2025 DTaP/Tdap/Td Vaccines ([facility]) (2 - Td or Tdap) 03/14/2017 RSV Vaccines (1 - 1-dose 75+ series) 2035 [employer] Not on file [place] [address] [place] [address] Care Teams Patient Centered Care Specialist Relationship Specialty Start Date End Date Pcp, No PCP - General Family Medicine 07/06/20
--- OUTSIDE RECORDS SUMMARY | 2025-04-09 13:32 | XMS_ITS | Encounter Summary ---
Author Organization [facility] Address [address] [place] [address] Care Team Providers Care Ground Support Equipment Assembler Name Role Phone Marco Antonio Maldonado MD Primary Care Provider [phone] Encounter Details Date Type Department Care Team (Late st Contact Info) Description 02/15/2022 Orders Only [facility] Lab Draw Site [address] [place] [address] Marco Antonio Maldonado MD [address] [place] [address] [phone] Umbilical hernia with obstruction but no gangrene [...] on file documented as of this encounter Results * Due to [place] state law, this organization might not be sharing negative HIV tests. * Urinalysis With Microscopic (No Culture) (02/16/2022 9:29 AM EDT) Color, Urine Light Yellow Colorless, Light Yellow, Yellow, Dark Yellow 02/16/2022 10:11 AM [facility] Clarity, Urine Clear Clear 02/16/2022 10:11 AM [facility] Specific [place], Urine 1.009 1.005 - 1.030 02/16/2022 10:11 AM [facility] pH, Urine 6.0 4.6 - 8.0 02/16/2022 10:11 AM EDT [facility] Protein, Urine Negative Negative 02/16/2022 10:11 AM [facility] Glucose, Urine Negative Negative 02/16/2022 10:11 AM [facility] Ketones, Urine Negative Negative 02/16/2022 10:11 AM [facility] Bilirubin, Urine Negative Negative 02/16/2022 10:11 AM [facility] Blood, Urine Negative Negative 02/16/2022 10:11 AM [facility] Nitrite, Urine Negative Negative 02/16/2022 10:11 AM [facility] Urobilinogen, Urine Normal Normal 02/16/2022 10:11 AM [facility] Leukocyte Esterase, Urine Negative Negative 02/16/2022 10:11 AM [facility] WBC, Urine 2 0 - 2 /HPF 02/16/2022 10:11 AM EDT [facility] RBC, Urine 0 0 - 2 /HPF 02/16/2022 10:11 AM [facility] Hyaline Casts, Urine 0 0 - 2 /LPF 02/16/2022 10:11 AM [facility] Bacteria, Urine None Seen None /HPF /HPF 02/16/2022 10:11 AM [facility] Urine Voided urine specimen / Unknown Non-Blood Collection / Unknown 02/16/2022 9:29 AM EDT 02/16/2022 9:45 AM EDT us Marco Antonio Maldonado MD LAB URINE ORDERABLES Final Resu lt [facility] [address] [place] [address], [place] * (ABNORMAL) Basic Metabolic Panel (02/16/2022 9:22 AM EDT) NA 141 135 - 145 mmol/L 02/16/2022 10:14 AM EDT [facility] K 4.5 3.5 - 5.3 mmol/L 02/16/2022 10:14 AM EDT [facility] Cl 105 97 - 110 mmol/L 02/16/2022 10:14 AM EDT [facility] CO2 27 24 - 32 mmol/L 02/16/2022 10:14 AM EDT [facility] BUN 14 7 - 23 mg/dL 02/16/2022 10:14 AM EDT [facility] Creatinine 0.80 0.60 - 1.30 mg/dL 02/16/2022 10:14 AM EDT [facility] Glucose 108(H) 70 - 99 mg/dL 02/16/2022 10:14 AM EDT [facility] Calcium 9.9 8.7 - 10.7 mg/dL 02/16/2022 10:14 AM EDT [facility] Anion Gap 9 5 - 15 02/16/2022 10:14 AM EDT [facility] eGFR >90 >=90 mL/min/1. 73m2 02/16/2022 10:14 AM EDT [facility] Comment: Estimated Glomerular Filtration [...] MD LAB BLOOD ORDERABLES Final Resu lt [facility] [address] [place], [place] [id number], * CBC Auto Differential (02/16/2022 9:22 AM EDT) WBC 7.9 4.3 - 10.8 10*3/uL 02/16/2022 9:54 AM EDT [facility] RBC 4.92 4.20 - 5.80 10*6/uL 02/16/2022 9:54 AM EDT [facility] Hemoglobin 14.9 13.2 - 17.1 g/dL 02/16/2022 9:54 AM EDT [facility] Hematocrit 43.0 39.0 - 52.0 % 02/16/2022 9:54 AM EDT [facility] MCV 87.4 80.0 - 100.0 fL 02/16/2022 9:54 AM EDT [facility] MCH 30.2 27.0 - 34.0 pg 02/16/2022 9:54 AM EDT [facility] MCHC 34.6 29.0 - 36.0 g/dL 02/16/2022 9:54 AM EDT [facility] RDW 13.1 11.0 - 15.0 % 02/16/2022 9:54 AM EDT [facility] Platelets 230 140 - 440 10*3/uL 02/16/2022 9:54 AM EDT [facility] MPV 7.6 7.6 - 11.6 fL 02/16/2022 9:54 AM EDT [facility] Neutrophil % 62.7 % 02/16/2022 9:54 AM EDT [facility] Lymphocyte % 27.5 % 02/16/2022 9:54 AM EDT [facility] Monocyte % 6.1 % 02/16/2022 9:54 AM EDT [facility] Eosinophil % 2.2 % 02/16/2022 9:54 AM EDT [facility] Basophil % 1.4 % 02/16/2022 9:54 AM EDT [facility] Neutrophil # 4.94 1.60 - 7.50 10*3/uL 02/16/2022 9:54 AM EDT [facility] Lymphocyte # 2.2 0.9 - 3.4 10*3/uL 02/16/2022 9:54 AM EDT [facility] Monocyte # 0.5 0.0 - 1.2 10*3/uL 02/16/2022 9:54 AM EDT [facility] Eosinophil # 0.2 0.0 - 0.6 10*3/uL 02/16/2022 9:54 AM EDT [facility] Basophil # 0.1 0.0 - 0.3 10*3/uL 02/16/2022 9:54 AM EDT [facility] Smear Review? No [place] MANUAL 02/16/2022 9:54 AM EDT [facility] Blood Structure of peripheral vein / Unknown Venipuncture / Unknown 02/16/2022 9:22 AM EDT 02/16/2022 9:47 AM EDT us Marco Antonio Maldonado MD LAB BLOOD ORDERABLES Final Resu lt [facility] [address] [place] [address], documented in this encounter Visit Diagnoses Diagnosis Umbilical hernia with obstruction but no gangrene- Primary Umbilical hernia with obstruction documented in this encounter Care Teams Ground Support Equipment Assembler Relationship Specialty Start Date End Date Marco Antonio Maldonado MD [address] [place] [id number] PCP - General Internal Medicine 08/21/21 documented as of this encounter
--- OUTSIDE RECORDS SUMMARY | 2025-04-09 13:32 | XMS_ITS | Encounter Summary ---
Author Organization [facility] Address [address] [place] [address] Care Team Providers Care Sales Promoter Name Role Phone Marco Antonio Maldonado MD Primary Care Provider [phone] Encounter Details Date Type Department Care Team (Late st Contact Info) Description 10/01/2024 Community Orders [facility] EpicCare Link [address] [place] [address] Marco Antonio Maldonado MD [address] [place] [phone] Social History Tobacco Use Types Packs/Day Years [...] on filedocumented in this encounter Care Teams Sales Promoter Relationship Specialty Start Date End Date Marco Antonio Maldonado MD [address] [place] [address] PCP - General Internal Medicine 08/21/21 documented as of this encounter
--- OUTSIDE RECORDS SUMMARY | 2025-04-09 13:32 | XMS_ITS | Continuity of Care Document ---
Author Organization [facility] Address [address] [place] [address] Care Team Providers Care Hse Manager Name Role Phone Mark Maldonado MD Primary Care Provider [phone] Encounters Date Type Department Care Team Description 01/12/2025 Telephone [facility] Audiology [address] [place] [phone] Mounika Santo, AuD CCCA FYI 02/18/2020 Telephone [facility] Podiatry [address] [place] [phone] Gabino Bradshaw DPM FYI 02/16/2020 3:30 PM EDT Office Visit [address] [phone] Gabino Bradshaw DPM Pronation of both feet (Primary Dx) 02/09/2020 Travel 02/09/2020 9:50 AM EDT [facility] [address] [place] [phone] Gabino Bradshaw DPM Ingrowing toenail (Primary Dx) 02/08/2020 [facility] [phone] Gabino Bradshaw DPM Patient Questions 01/14/2020 2:50 PM EDT Office Visit [facility] [address] [place] [phone] Gabino Bradshaw DPM Ingrowing toenail (Primary Dx) 01/13/2020 Travel 06/02/2019 9:10 AM EST Consult (Initial) [facility] [address] [place] [phone] Gabino Bradshaw DPM Ingrowing toenail (Primary Dx); Paronychia of toe, [...] ve Social History Smoking Status as of 04/09/2025 Tobacco Use Types Packs/Day Years Used Date [...] Pronation of both feet 02/16/2020 Care Teams Hse Manager Relationship Specialty Start Date End Date Mark Maldonado MD [address] [place] [phone] PCP - General Internal Medicine 06/01/19
--- OUTSIDE RECORDS SUMMARY | 2025-04-09 13:32 | XMS_ITS | Encounter Summary ---
Author Organization [facility] Address [address] [place] [address] Care Team Providers Care Receptionist Doctor'S Office Name Role Phone Marco Antonio Maldonado MD Primary Care Provider [phone] Encounter Details Date Type Department Care Team (Late st Contact Info) Description 02/16/2022 Orders Only [facility] Xray [address] [place] [address] Andrew Jonas MD [address] [place] [address] Social History Tobacco Use Types Packs/Day Years [...] on filedocumented in this encounter Care Teams Receptionist Doctor'S Office Relationship Specialty Start Date End Date Marco Antonio Maldonado MD [address] [place] [phone] PCP - General Internal Medicine 08/21/21 documented as of this encounter
--- OUTSIDE RECORDS SUMMARY | 2025-04-09 13:32 | XMS_ITS | Patient Health Record ---
Author Organization [facility] Address [address] [address] Care Team Providers Care Motor Builder Winder Name Role Phone JAYA MCDOWELL Primary Care Provider Dunia Sanchez Unavailable [phone] Migration, Provider Unavailable Unavailable Reason For Referral No Information Medications Medication SIG (Take, Route, Frequency, Duration) Notes Start Date End Date Status Sutab 0.225 G-0.188 G-1.479 G DIRECTED COUPON INFORMATION: BIN: [id number] PCN: [id number] GRP: [id number] ID: [id number] *Please review and pick correct strength-formulatio n from Medispan options. If intended option is not shown, discontinue and re-order from Quick Search* 07/26/2023 Active Encounters Encounter Location Date Provider Diagnosis [facility] [address] [place] [phone] 10/31/2024 Provider Migration Plan Of Treatment No Information Insurance Providers Payer Name Payer Address Payer Phone Subscriber Number Group Number Insured Name Patient Relationship to Insured Coverage Start Date Coverage End Date [facility] [address] [place] [address] [id number] RAMAN HYDE Self - patient is the insured
--- OUTSIDE RECORDS SUMMARY | 2025-04-09 13:32 | XMS_ITS | Encounter Summary ---
Author Organization [facility] Address [address] [place] [address] Care Team Providers Care Discharge Rn Name Role Phone Marco Antonio Maldonado MD Primary Care Provider [phone] Encounter Details Date Type Department Care Team (Late st Contact Info) Description 10/09/2024 Community Orders [facility] EpicCare Link [address] [place] [address] Marco Antonio Maldonado MD [address] [place] [phone] Social History Tobacco Use Types Packs/Day Years [...] on filedocumented in this encounter Care Teams Discharge Rn Relationship Specialty Start Date End Date Marco Antonio Maldonado MD [address] [place] [phone] PCP - General Internal Medicine 08/21/21 documented as of this encounter
--- OUTSIDE RECORDS SUMMARY | 2025-04-09 13:32 | XMS_ITS | Clinical Summary ---
Author Organization [facility] Address [address] [place] [address] Care Team Providers Care Social Services Coordinator Name Role Phone Marco Antonio Maldonado MD [...] Encounters Date Type Department Care Team Description 03/25/2025 Orders Only [facility] [place] [facility] Draw Site [address] [place] [address] Marco Antonio Maldonado MD Mixed hyperlipidemia (Primary Dx); Encounter for screening for diabetes mellitus 03/15/[address] [facility] EpicCare Link [address] [place] [address] Marco Antonio Maldonado MD 02/16/2025 7:30 AM EDT - 02/16/2025 11:59 PM EDT Hospital Encounter [address] [address] Marco Antonio Maldonado MD Personal history of tobacco use, presenting hazards to health Discharge Disposition: Home or Self Care () 02/02/[address] [address] Steffi Guzman RN 01/22/2025 Transcribe Orders [facility] Physician Referral Services [address] [place] [address] Marco Antonio Maldonado MD Personal history of tobacco use, presenting hazards to health (Primary Dx) from Last 3 Months Immunizations [...] 91 09/28/2024 7:53 AM EDT Temperature 36.3 C (97.3 F) 11/21/2023 8:31 AM EDT Respiratory Rate 16 10/21/2023 7:50 AM EDT Oxygen Saturation 95% 10/21/2023 7:50 AM EDT Inhaled Oxygen Concentration - - Weight 89.8 kg (198 lb) 11/21/2023 8:31 AM EDT Height 167.6 cm (5' 6 ) 11/21/2023 8:31 AM EDT Body Mass Index 31.96 11/21/2023 8:31 AM EDT Plan of Treatment Health Maintenance Due Date Last Done Comments FOBT / Fit Test 1960 HIV Screening 1960 Hepatitis C Screening 1960 Sigmoidoscopy 1960 Pneumococcal Vaccine: 50+ Years (1 of 2 - PCV) 1979 Zoster Vaccines (1 of 2) 2010 RSV Vaccine (60+ years old and patients) (1 - Risk 60-74 years 1-dose series) 2020 Alcohol/Substance Use Screening 06/24/2024 Depression Screening and Follow-Up 06/24/2024 Social Drivers of Health Annual Screening 06/24/2024 COVID-19 Vaccine ( - season) 2025 04/09/2022, 04/29/2021, 09/09/2020, Additional history exists Influenza Vaccine (#1) 2025 7, 05/09/2015, 08/04/2014 Cologuard 05/22/2026 05/22/2023, 05/22/2023 DTaP,Tdap,and Td Vaccines (2 - Td or Tdap) 03/14/2027 03/14/2017 Colon Cancer Screening 10/18/2030 Colonoscopy 10/18/2030 10/18/2020, 04/12/2020, 07/22/2018, Additional history exists CT Lung Cancer Screening (12 months, previous LungRADS 1 or 2) Discontinued 02/16/2025 Hepatitis B Vaccines Aged Out No long er eligible based on patient's age to complete this topic Procedures * Due to [place] [employer] law, this organization might not be sharing negative HIV tests. Procedure Name Priority Date/Time Associated Diagnosis Comments CT LUNG CANCER SCREENING BASELINE Routine 02/16/2025 8:00 AM EDT Personal history of tobacco use, presenting hazards to health COLONOSCOPY 10/18/2020 from Last 3 Months or Most Recently Relevant to Health Maintenance Results * Due to [place] [employer] law, this organization might not be sharing negative HIV tests. * CT Lung Cancer Screening Baseline (02/16/2025 8:00 AM EDT) Anatomical Region Laterality Modality Chest Computed Tomogra phy 02/16/2025 9:14 AM EDT Impressions 03/19/2025 7:53 AM EDT 1. Few sub-6 mm pulmonary nodules. Lung-RADS Category 2: Benign Appearance or Behavior Nodules with a very low likelihood of becoming a clinically active cancer due to size or lack of growth Lung-RADS Category Description 2: Findings under this category can include: Perifissural nodule(s) < 10 mm (524 mm3) Solid nodule(s): < 6 mm (< 113 mm3) new < 4 mm (< 34 mm3) Part solid nodule(s): < 6 mm total diameter (< 113 mm3) on baseline screening Non solid nodule(s) (GGN): <30 mm (<73177 mm3) OR > or equal to 30 mm ( [place] [address] mm3) and unchanged or slowly growing. Category 3 or 4 nodules unchanged for > or equal to 3 months Modifier No clinically significant or potentially significant findings Schedule lung cancer screening CT/follow-up CT:12 months ----- ----- This report uses Lung RADS version 1.1 (2019) [email or web address] [email or web address]?la=en If this radiology report contains a blank impression section, it is an incomplete radiology report. Please contact the interpreting radiologist or applicable radiology division as soon as possible to obtain the completed interpretation. Workstation ID: [id number] Up-to-date CT equipment and radiation dose reduction techniques were employed. CTDIvol: 4.1 mGy. DLP: 152 mGy-cm. Narrative 03/19/2025 7:[address] LUNG CANCER SCREENING BASELINE INDICATION: screening Z87.891 - I10 - Personal history of nicotine dependence COMPARISON: None. TECHNIQUE: Non-enhanced chest CT. Images were acquired with helical acquisition and low dose technique. Multiplanar reconstructions including MIP, MinIP and Slab images were reviewed. Note that low dose technique uses a low level of radiation exposure that provides adequate lung detail but limited image quality in the mediastinum and upper abdomen. For radiation dose control at least one of the following techniques was used in this procedure (1) Automated exposure control (2) Adjustment of the mA and/or kV according to patient size (3) Use of iterative reconstruction technique. FINDINGS: LUNGS: Few sub-6 mm pulmonary nodules, largest measuring 5 mm and the left lower lobe (905:260). Additional examples include in the right upper lobe (905:161) and in the left upper lobe (905:204). Partial minimal atelectasis of the right middle lobe medially. Diffuse mild thickening and irregularities of the airway kate. PLEURA: No pleural effusions or pneumothorax. MEDIASTINUM: Heart size is normal. No pericardial effusion. NODES: No enlarged supraclavicular, axillary, mediastinal or hilar lymph nodes. Evaluation is limited due to lack of intravenous contrast. UPPER ABDOMEN (limited): Absence of intravenous contrast and low dose technique limits evaluation. Innumerable hypodense lesions throughout the liver, previously characterized as cysts on dedicated MRI of the liver. CHEST WALL: No chest wall mass. BONES AND SOFT TISSUES: No suspicious lytic or blastic lesions. Multilevel degenerative changes in the spine. Resulting Agency Comment [id number] Procedure Note Sri Betancourt MD - 03/19/2025 CT LUNG CANCER SCREENING BASELINE INDICATION: screening Z87.891 - I10 - Personal history of nicotinedependence COMPARISON: None. TECHNIQUE: Non-enhanced chest CT. Images were acquired with helicalacquisition and low dose technique. Multiplanar reconstructions includingMIP, MinIP and Slab images were reviewed. Note that low dose techniqueuses a low level of radiation exposure that provides adequate lung detailbut limited image quality in the mediastinum and upper abdomen. For radiation dose control at least one of the following techniques wasused in this procedure (1) Automated exposure control (2) Adjustment ofthe mA and/or kV according to patient size (3) Use of iterativereconstruction technique. FINDINGS: LUNGS: Few sub-6 mm pulmonary nodules, largest measuring 5 mm and the left lowerlobe (905:260). Additional examples include in the right upper lobe(905:161) and in the left upper lobe (905:204). Partial minimalatelectasis of the right middle lobe medially. Diffuse mild thickeningand irregularities of the airway kate. PLEURA: No pleural effusions or pneumothorax. MEDIASTINUM: Heart size is normal. No pericardial effusion. NODES: No enlarged supraclavicular, axillary, mediastinal or hilar lymph nodes.Evaluation is limited due to lack of intravenous contrast. UPPER ABDOMEN (limited): Absence of intravenous contrast and low dose technique limits evaluation.Innumerable hypodense lesions throughout the liver, previouslycharacterized as cysts on dedicated MRI of the liver. CHEST WALL: No chest wall mass. BONES AND SOFT TISSUES: No suspicious lytic or blastic lesions. Multilevel degenerative changesin the spine. IMPRESSION: 1. Few sub-6 mm pulmonary nodules. Lung-RADS Category 2: Benign Appearance or Behavior Nodules with a verylow likelihood of becoming a clinically active cancer due to size or lackof growth Lung-RADS Category Description 2: Findings under this category can include: Perifissural nodule(s) < 10 mm (524 mm3) Solid nodule(s): < 6 mm (< 113 mm3) new < 4 mm (< 34 mm3) Part solid nodule(s): < 6 mm total diameter (< 113 mm3) on baseline screening Non solid nodule(s) (GGN): <30 mm (<05346 mm3) OR > or equal to 30 mm ( [place] [address] mm3) and unchanged or slowly growing. Category 3 or 4 nodules unchanged for > or equal to 3 months Modifier No clinically significant or potentially significant findings Schedule lung cancer screening CT/follow-up CT:12 months ----- ----- This report uses Lung RADS version 1.1 (2019) [email or web address]/-/[email or web address] [email or web address] .[email or web address]?la=en If this radiology report contains a blank impression section, it is anincomplete radiology report. Please contact the interpreting radiologistor applicable radiology division as soon as possible to obtain thecompleted interpretation. Workstation ID: [id number] Up-to-date CT equipment and radiation dose reduction techniques wereemployed. CTDIvol: 4.1 mGy. DLP: 152 mGy-cm. us Marco Antonio Maldonado MD IMG CT PROCEDURES Final Result * COLONOSCOPY (10/18/2020) Narrative Procedure Note Ronal Gaffney MD - 10/18/2020 11:16 AM EDT Endoscopy Center Patient Name: Akbar Radford Procedure Date: 10/18/2020 11:16 AM Date of : 1960 Age: 60 Room: [place] [address] Gender: Male Note Status: Finalized Attending MD: [...] Most Recently Relevant to Health Maintenance Insurance [facility] HMO/POS Advance Directives * Full Code (Latest Code Status on File) Date Activated Date Inactivated Comments 10/02/2023 7:35 AM 10/02/2023 1:19 PM Care Teams Social Services Coordinator Relationship Specialty Start Date End Date Marco Antonio Maldonado MD [address] [place] [phone] PCP - General Internal Medicine 08/21/21
--- OUTSIDE RECORDS SUMMARY | 2025-04-09 13:32 | XMS_ITS | Encounter Summary ---
Author Organization [facility] Address [address] [place] [address] Care Team Providers Care Dirt Shoveler Name Role Phone Marco Antonio Maldonado MD Primary Care Provider [phone] Encounter Details Date Type Department Care Team (Late st Contact Info) Description 02/19/2022 Orders Only [facility] Lab Draw Site [address] [place] [phone] Marco Antonio Maldonado MD [address] [place] [phone] Elevated prostate specific antigen (PSA) (Primary Dx); [...] liver documented in this encounter Care Teams Dirt Shoveler Relationship Specialty Start Date End Date Marco Antonio Maldonado MD [address] [place] [address] PCP - General Internal Medicine 08/21/21 documented as of this encounter
--- OUTSIDE RECORDS SUMMARY | 2025-04-09 13:32 | XMS_ITS | Encounter Summary ---
Author Organization [facility] Address [address] [place] [address] Care Team Providers Care Plumbing Foreman Name Role Phone Marco Antonio Maldonado MD Primary Care Provider [phone] Encounter Details Date Type Department Care Team (Late st Contact Info) Description 02/16/2022 Orders Only [facility] Xray [address] [place] [address] Mikhail Dorantes MD [address] [place] [address] Social History Tobacco Use Types Packs/Day Years [...] on filedocumented in this encounter Care Teams Plumbing Foreman Relationship Specialty Start Date End Date Marco Antonio Maldonado MD [address] [place] [address] PCP - General Internal Medicine 08/21/21 documented as of this encounter
--- OUTSIDE RECORDS SUMMARY | 2025-04-09 13:32 | XMS_ITS | Encounter Summary ---
Author Organization [facility] Address [address] [place] [address] Care Team Providers Care Filing Clerk Name Role Phone Marco Antonio Maldonado MD Primary Care Provider [phone] Encounter Details Date Type Department Care Team (Late st Contact Info) Description 08/28/2023 Orders Only [facility] Surgery [address] [place] [address] Taran Andino MD [address] [place] [address] Social History Tobacco Use Types Packs/Day Years [...] on filedocumented in this encounter Care Teams Filing Clerk Relationship Specialty Start Date End Date Marco Antonio Maldonado MD [address] [place] [phone] PCP - General Internal Medicine 08/21/21 documented as of this encounter
--- OUTSIDE RECORDS SUMMARY | 2025-04-09 13:32 | XMS_ITS | Encounter Summary ---
Author Organization [facility] Address [address] [place] [address] Care Team Providers Care After School Teacher Name Role Phone Marco Antonio Maldonado MD Primary Care Provider [phone] Encounter Details Date Type Department Care Team (Late st Contact Info) Description 10/12/2024 Community Orders [facility] EpicCare Link [address] [place] [address] Marco Antonio Maldonado MD [address] [place] [phone] Social History Tobacco Use Types Packs/Day Years [...] on filedocumented in this encounter Care Teams After School Teacher Relationship Specialty Start Date End Date Marco Antonio Maldonado MD [address] [place] [phone] PCP - General Internal Medicine 08/21/21 documented as of this encounter
--- OUTSIDE RECORDS SUMMARY | 2025-04-09 13:33 | XMS_ITS | Patient Health Record ---
Author Organization [facility] Address [address] [place], [place] [id number] Care Team Providers Care Assistant Community Manager Name Role Phone Erica RUSSO, Marco Antonio Primary Care Provider UnavailJaime Ko Unavailable [phone] Agiomavritis, Demosthenes Unavailable Unavai lable Allergies Allergen (clinical drug ingredient) Drug/Non Drug Allergy documented on EMR Reaction Allergy Type Onset Date Status Iodine Swelling, rash Drug Allergy Ac tive Sulfa Drugs BP Dropped Drug Allergy Acti ve Reason For Referral No Information Medications Medication SIG (Take, Route, Frequency, Duration) Notes Start Date End Date Status Vitamin B6 200 MG Tablet 1 tablet Orally Once a day; Duration: 30 day(s) Active Vitamin B12 1000 MCG Tablet Extended Release 1 tablet Orally Once a day; Duration: 30 day(s) Active Lunesta 3 MG Tablet 1 tablet immediately before bedtime Orally Once a day Active Simvastatin 20 MG Tablet 1 tablet in the evening Orally Once a day; Duration: 30 day(s) Active Ciprofloxacin HCl 250 MG Tablet ? 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 Alcohol: None Marital status Children Two daughters Siblings Brother, Sister Problems Problem Type SNOMED Code ICD Code Onset Dates Problem Status W/U Status Risk Notes Problem Tobacco use (394666382) Tobacco use (Z72.0) Active confirmed Problem Obstructive sleep apnea (48093328) Obstructive sleep apnea (G47.33) Active confirmed Problem Pulmonary nodule (403136842) Pulmonary nodule (R91.1) Active confirmed Problem COPD - Chronic obstructive pulmonary disease (29607305) COPD (chronic obstructive pulmonary disease) (J44.9) Active confirmed Problem Pulmonary infiltrate (682638012) Pulmonary infiltrate (R91.8) Active confirmed Problem Pulmonary hyperinflation (R09.89) Active confirmed Plan Of Treatment Pending Test Test Name Order Date CT LUNG SCREENING 01/14/2019 Insurance Providers Payer Name Payer Address Payer Phone Subscriber Number Group Number Insured Name Patient Relationship to Insured Coverage Start Date Coverage End Date [facility] [address] [place] [phone] [id number] Akbar Radford Self - patient is the insured Medical (General) History Medical History History ICD Code Hyperlipidemia ? mild depression Surgical History Surgery Date(Month/Year) Appendectomy Nasal septoplasty UPPP Rotator cuff tear repair, left
--- OUTSIDE RECORDS SUMMARY | 2025-04-09 13:33 | XMS_ITS | Encounter Summary ---
Author Organization [facility] Address [address] [place] [address] Care Team Providers Care Pumping Station Engineer Name Role Phone Marco Antonio Maldonado MD Primary Care Provider Encounter Details Date Type Department Care Team (Late st Contact Info) Description 01/01/2025 Orders Only [facility] Draw Site [address] [place] [address] Marco Antonio Maldonado MD [address] [place] [phone] Elevated prostate specific antigen (PSA) (Primary Dx) [...] as of this encounter Plan of Treatment Scheduled Orders Name Type Priority Associated Diagnoses Orde r Schedule PSA, Total and Free Lab Routine Elevated prostate specific antigen (PSA) Expected: 01/01/2025, Expires: 01/01/2026 Urinalysis W/Reflex to Microscopic & Culture Lab Routine Elevated prostate specific antigen (PSA) Expected: 01/01/2025, Expires: 01/01/2026 documented as of this encounter Visit Diagnoses Diagnosis Elevated prostate specific antigen (PSA)- Primary documented in this encounter Care Teams Pumping Station Engineer Relationship Specialty Start Date End Date Marco Antonio Maldonado MD [address] [place], [place] [phone] PCP - General Internal Medicine 08/21/21 documented as of this encounter
--- OUTSIDE RECORDS SUMMARY | 2025-04-09 13:33 | XMS_ITS | Encounter Summary ---
Author Organization [facility] Address [address] [place] [address] Care Team Providers Care Skidder Operator Name Role Phone Marco Antonio Maldonado MD Primary Care Provider [phone] Encounter Details Date Type Department Care Team (Late st Contact Info) Description 03/15/2025 Community Orders [facility] EpicCare Link [address] [place] [address] Marco Antonio Maldonado MD [address] [place] [phone] Social History Tobacco Use Types Packs/Day Years [...] on filedocumented in this encounter Care Teams Skidder Operator Relationship Specialty Start Date End Date Marco Antonio Maldonado MD [address] [place] [phone] PCP - General Internal Medicine 08/21/21 documented as of this encounter
--- OUTSIDE RECORDS SUMMARY | 2025-04-09 13:33 | XMS_ITS | Encounter Summary ---
Author Organization [facility] Address [address] [place] [address] Care Team Providers Care Sports Activities Foul Judge Name Role Phone Marco Antonio Maldonado MD Primary Care Provider [phone] Encounter Details Date Type Department Care Team (Late st Contact Info) Description 09/15/2024 Orders Only [facility] [facility] Draw Site [address] [place] [address] Marco Antonio Maldonado MD [address] [place] [phone] Elevated prostate specific antigen (PSA) (Primary Dx) [...] of this encounter Results * Due to [place] state law, this organization might not be sharing negative HIV tests. * (ABNORMAL) PSA, Total and Free (09/23/2024 7:39 AM EDT) PSA 10.10(H) <=4.00 ng/mL 09/23/2024 8:40 AM EDT [facility] Comment: The total PSA value from this assay system is standardized against the WHO standard. The test result will be slightly lower (< 3 %) when compared to the equimolar-standardized total PSA(Tabitha Rodrick). Comparison of Serial PSA results should be interpreted with this fact in mind. PSA level, regardless of value should not be interpreted as absolute evidence of the presence or absence of disease. This test was performed using Eugenia chemiluminescent method. Values obtained by different assay methods cannot be used interchangeably. PSA Free 0.902 ng/mL 09/23/2024 8:40 AM EDT [facility] Comment: This test was performed using Eugenia chemiluminescent method. Values obtained by different assay methods cannot be used interchangeably. PSA % Free 9(L) >25 % 09/23/2024 8:40 AM EDT [facility] Comment: A cutoff of [...] MD LAB BLOOD ORDERABLES Final [facility] [address] [place] [address], documented in this encounter Visit Diagnoses Diagnosis Elevated prostate specific antigen (PSA)- Primary documented in this encounter Care Teams Sports Activities Foul Judge Relationship Specialty Start Date End Date Marco Antonio Maldonado MD [address] [place] [phone] PCP - General Internal Medicine 08/21/21 documented as of this encounter
--- OUTSIDE RECORDS SUMMARY | 2025-04-09 13:33 | XMS_ITS | Encounter Summary ---
Author Organization [facility] Address [address] [place] [address] Care Team Providers Care Solution Manager Name Role Phone Marco Antonio Maldonado MD Primary Care Provider [phone] Encounter Details Date Type Department Care Team (Late st Contact Info) Description 04/20/2020 Orders Only [facility] [address] [place] [address] Marco Antonio Maldonado MD [address] [place] [phone] Exposure to SARS-associated coronavirus (Primary Dx) Social [...] of this encounter Results * Due to [place] state law, this organization might not be sharing negative HIV tests. * COVID-19 PCR, CAMPAIGN SPECIALIST/OP/[facility] (04/21/2020 9:24 AM EDT) SARS CoV 2 RNA, RT PCR Not Detected Not Detected 04/21/2020 3:22 PM EDT [facility] Comment:A Not Detected (Nega [...] AM EDT 04/21/2020 9:51 AM EDT Narrative [facility] - 04/21/2020 3:22 PM EDT These tests were developed, validated, and their performance characteristics determined by the [facility] Laboratory at [facility] under CLIA [id number]. They have not been cleared or approved by the U.S. Food and Drug Administration (FDA). FDA Policy for Diagnostic Tests for Coronavirus Disease-2019 during the Public Health Emergency issued September 07, 2019, is followed. us Marco Antonio Maldonado MD LAB BODY FLUIDS AND STOOLS TIERRA SHINE Final Result [facility] [address] [place] [address], documented in this encounter Visit Diagnoses Diagnosis Exposure to SARS-associated coronavirus- Primary documented in this encounter Additional Health Concerns Infection Onset Date Last Indicated Resolved Time COVID-19 - Suspected infection 04/20/2020 04/21/2020 04/21/2020 3:22 PM EDT documented as of this encounter Care Teams Solution Manager Relationship Specialty Start Date End Date Marco Antonio Maldonado MD [address] [place] [id number] PCP - General Internal Medicine 08/21/21 documented as of this encounter
--- OUTSIDE RECORDS SUMMARY | 2025-04-09 13:33 | XMS_ITS | Encounter Summary ---
Author Organization [facility] Address [address] [place] [address] Care Team Providers Care Mold Car Pusher Name Role Phone Marco Antonio Maldonado MD Primary Care Provider [phone] Encounter Details Date Type Department Care Team (Late st Contact Info) Description 03/25/2025 Orders Only [facility] [address] [place] [id number] Marco Antonio Maldonado MD [address] [place] [phone] Mixed hyperlipidemia (Primary Dx); Encounter for screening for diabetes mellitus Social History Tobacco Use Types Packs/Day Years [...] Type Priority Associated Diagnoses Orde r Schedule Apolipoprotein B Lab Routine Mixed hyperlipidemia Expected: 03/25/2025, Expires: 03/25/2026 Apolipoprotein A1 Lab Routine Mixed hyperlipidemia Expected: 03/25/2025, Expires: 03/25/2026 Hemoglobin A1c Lab Routine Encounter for screening for diabetes mellitus Expected: 03/25/2025, Expires: 03/25/2026 Urinalysis W/Reflex to Microscopic & Culture Lab Routine Encounter for screening for diabetes mellitus Expected: 03/25/2025, Expires: 03/25/2026 documented as of this encounter Visit Diagnoses Diagnosis Mixed hyperlipidemia- Primary Encounter for screening for diabetes mellitus documented in this encounter Care Teams Mold Car Pusher Relationship Specialty Start Date End Date Marco Antonio Maldonado MD [address] [place] [address] PCP - General Internal Medicine 08/21/21 documented as of this encounter
== END 2025-04-09 11:29 | disposition home or self-care (01) ==
LOC: HO.HUSH 10:55
PROVIDERS: PCP Internal Medicine; Visit Provider Urology
DX: R97.20 Elevated prostate specific antigen [PSA] (principal); N32.0 Bladder-neck obstruction; N52.9 Male erectile dysfunction, unspecified
CPT/HCPCS: 99214